=== PATIENT | female | born 1930 | race Caucasian/White ===

== ENCOUNTER → 2017-01-25 | Outpatient (CLI) | payer MEDICARE, OTHER ==
[2016-05-11 18:15] VITALS: BP 89/36
[~2017-01-25] MED LIST: ALBU0.63 IH; AMLO10TA2 PO; AMLO1TAB97 PO; ASPI-253 PO; ATOR40TA PO; AZIT250T6 PO; BENZ100C PO; BUDE10.2 IH; CARV12.5 PO; CARV6.25 PO; CETI10TA22 PO; CYCL-331 PO; ESOM40CA PO; FURO-69 PO; GUAI600T47 PO; ISOS30TA PO; MONT10TA6 PO; NITR12SP SL; OSEL75CA PO; PANT40TA3 PO; POTA20TA4 PO; POTA20TA84 PO; SUCR1TAB35 PO; TRAM50TA PO; VALS160T3 PO; WARF4TAB68 PO; WARF4TAB7 PO; WARF5TAB7 PO
--- NOTE | 2017-01-25 15:47 | RAD ---
Clinical Indication: Left lower extremity edema Technique: Study is dated January 25, 2017. Grayscale, color flow and spectral waveform analysis was performed of the left lower extremity with and without compression. Findings: There is normal compressibility of all visualized vein segments. No evidence of DVT is present on grayscale or color images. There is normal phasicity of waveform. There is normal augmentation. Probable popliteal cyst is noted. Impression: No evidence of deep vein thrombosis.
== END | disposition home or self-care (01) ==
LOC: US 14:48
PROVIDERS: ATTEND Nurse Practitioner
DX: R60.0 Localized edema (principal)
CPT/HCPCS: 93971

== ENCOUNTER → 2017-01-27 | Outpatient (CLI) | payer MEDICARE, OTHER ==
[2016-05-11 18:15] VITALS: BP 89/36
--- NOTE | 2017-01-27 16:04 | RAD ---
EXAM: Left knee, 3 views HISTORY: Left knee pain. COMPARISON: None. FINDINGS: Osteopenia is moderate to severe. No fractures are identified. Joint spaces are maintained for patient age. 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 There are small osteophytes medially and laterally. Alignment is normal. There is no joint effusion. IMPRESSION: 1. Minimal medial and lateral compartmental osteoarthritis. No fracture.
== END | disposition home or self-care (01) ==
LOC: DXRADRC 15:16
PROVIDERS: ATTEND Physician Assistant
DX: M17.12 Unilateral primary osteoarthritis, left knee (principal); M11.262 Other chondrocalcinosis, left knee; M85.862 Other specified disorders of bone density and structure, left lower leg; M25.762 Osteophyte, left knee
CPT/HCPCS: 73562

== ENCOUNTER → 2017-02-17 | Outpatient (CLI) | payer MEDICARE, OTHER ==
[2016-05-11 18:15] VITALS: BP 89/36
[2017-02-17 12:07] LABS: CALCIUM 9.6 mg/dL (8.5-10.1); CREATININE 1.2 mg/dL (0.6-1.0); GFR 42.8; POTASSIUM 3.8 mmol/L (3.5-5.1)
[2017-02-17 12:08] LABS: MAGNESIUM 1.6 mg/dL (1.8-2.4)
== END | disposition home or self-care (01) ==
LOC: LAB 11:26
PROVIDERS: ATTEND Nurse Practitioner
DX: E87.5 Hyperkalemia (principal); R00.2 Palpitations; I10 Essential (primary) hypertension; Z87.891 Personal history of nicotine dependence
CPT/HCPCS: 36415; 80048; 83735; 84443

== ENCOUNTER 2017-03-26 14:51 | Emergency (ER) | payer MEDICARE, OTHER ==
[~2017-03-26] VITALS: Ht 142.2 cm; Wt 54.0 kg
[2017-03-26] MEDS ORDERED: ASPIRIN 81 MG TAB.CHEW PO ONE (15:30)
--- NOTE | 2017-03-26 15:42 | RAD ---
Portable chest, 03/26/2017: History: Chest pain, lower extremity swelling Comparison is made to a study from 12/23/2014. A left-sided transvenous pacemaker is in place with 2 leads extending into the right ventricle. The heart is mildly enlarged. The pulmonary vascularity is normal. No pulmonary infiltrates are seen. There is no evidence of pleural fluid. IMPRESSION: No acute cardiopulmonary abnormality is detected.
--- NOTE | 2017-03-26 15:47 | EKG ---
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
[2017-03-26 15:50] LABS: BASO % 0 % (0-3); EOS # 0.1 x10^3/uL (0.0-0.7); EOS % 2 % (0-3); HEMATOCRIT 34.3 % (36.0-47.0); HEMOGLOBIN 11.6 g/dL (12.0-15.5); LYMPH # 1.1 x10^3/uL (1.0-4.8); LYMPH % 14 % (24-48); MEAN CORPUSCULAR HEMOGLOBIN 32 pg (25-35); MEAN CORPUSCULAR HGB CONC 34 g/dL (31-37); MEAN CORPUSCULAR VOLUME 93 fL (79-100); MONO # 0.5 x10^3/uL (0.0-1.1); MONO % 7 % (0-9); NEUT # 5.9 x10^3uL (1.8-7.7); NEUT % 77 % (31-73); PLATELET COUNT 174 x10^3/uL (140-400); RED BLOOD COUNT 3.67 x10^6/uL (3.50-5.40); RED CELL DISTRIBUTION WIDTH 13.5 % (11.5-14.5); WHITE BLOOD COUNT 7.6 x10^3/uL (4.0-11.0)
--- NOTE | 2017-03-26 16:05 | RAD ---
Left lower extremity venous ultrasound, 03/26/2017 : History: Lower extremity pain and edema Duplex evaluation including grayscale, color flow and spectral Doppler analysis was performed. The femoral and popliteal veins show no filling defects to suggest DVT. The visualized calf veins are unremarkable. IMPRESSION: There is no sonographic evidence of deep vein thrombosis in the left lower extremity
[2017-03-26 16:09] LABS: ALBUMIN 3.8 g/dL (3.4-5.0); ALBUMIN/GLOBULIN RATIO 1.1 (1.0-1.7); CALCIUM 9.4 mg/dL (8.5-10.1); CREATININE 1.1 mg/dL (0.6-1.0); GFR 47.2; MAGNESIUM 1.8 mg/dL (1.8-2.4); POTASSIUM 3.9 mmol/L (3.5-5.1); TOTAL BILIRUBIN 0.5 mg/dL (0.2-1.0); TOTAL PROTEIN 7.4 g/dL (6.4-8.2)
[2017-03-26 17:10] VITALS: BP 156/98
--- NOTE | 2017-03-26 17:52 | PHYS DOC ---
Past History Past Medical History: CAD, High Cholesterol, Hypertension, Renal Disease, Other Past Surgical History: Appendectomy, Cholecystectomy, Hysterectomy, Pacemaker, Tonsillectomy, Other Smoking: Non-smoker, Quit Greater Than 1 Year Alcohol Use: None Drug Use: None Adult General Chief Complaint Chief Complaint: left leg swerlling , chestpain HPI HPI 87-year-old female patient states she had a fall 3 months ago and had left leg swelling with unremarkable x-ray and DVT evaluation. Patient states the swelling does not go away and complaining of increasing swelling today. Patient also complaining of intermittent episodes of exertional shortness of breath and chest pain for the last few days that he states is not a problem that she is here today. Patient denies chest pain at this time. Review of Systems Review of Systems Constitutional: Denies fever or chills [] Eyes: Denies change in visual acuity, redness, or eye pain [] HENT: Denies nasal congestion or sore throat [] Respiratory: Denies cough or shortness of breath [] Cardiovascular: No additional information not addressed in HPI [] GI: Denies abdominal pain, nausea, vomiting, bloody stools or diarrhea [] : Denies dysuria or hematuria [] Musculoskeletal: Reports joint pain [] Integument: Denies rash or skin lesions, reports edema [] Neurologic: Denies headache, focal weakness or sensory changes [] Endocrine: Denies polyuria or polydipsia [] All other systems were reviewed and found to be within normal limits, except as documented in this note. Current Medications Current Medications Current Medications Medications (Trade) Dose Ordered Sig/Rosa Elena Start Time Stop Time Status Last Admin Dose Admin Aspirin (Children'S Aspirin) 324 mg 1X ONCE 03/26/17 15:30 03/26/17 15:32 DC 03/26/17 15:38 324 MG Allergies Allergies Allergies Coded Allergies Type Severity Reaction Last Updated Verified celecoxib Allergy Intermediate 04/28/14 Yes Physical Exam Physical Exam Constitutional: Well developed, well nourished, no acute distress, non-toxic appearance,anxious. [] HENT: Normocephalic, atraumatic, bilateral external ears normal, oropharynx moist, no oral exudates, nose normal. [] Eyes: PERRLA, EOMI, conjunctiva normal, no discharge. [] Neck: Normal range of motion, no tenderness, supple, no stridor. [] Cardiovascular:Heart rate regular rhythm, no murmur [] Lungs & Thorax: Bilateral breath sounds clear to auscultation [] Abdomen: Bowel sounds normal, soft, no tenderness, no masses, no pulsatile masses. [] Skin: Warm, dry, no erythema, no rash. [] Back: No tenderness, no CVA tenderness. [] Extremities : Bilateral lower extremity edema, 3+ edema in the left site without tenderness, no neurovascular deficit neuro exam, alert and oriented x3 ] Psychologic: Affect normal, judgement normal, anxious Current Patient Data Lab Results Laboratory Tests Test 03/26/17 15:32 White Blood Count 7.6 x10^3/uL (4.0-11.0) Red Blood Count 3.67 x10^6/uL (3.50-5.40) Hemoglobin 11.6 g/dL (12.0-15.5) L Hematocrit 34.3 % (36.0-47.0) L Mean Corpuscular Volume 93 fL (79-100) Mean Corpuscular Hemoglobin 32 pg (25-35) Mean Corpuscular Hemoglobin Concent 34 g/dL (31-37) Red Cell Distribution Width 13.5 % (11.5-14.5) Platelet Count 174 x10^3/uL (140-400) Neutrophils (%) (Auto) 77 % (31-73) H Lymphocytes (%) (Auto) 14 % (24-48) L Monocytes (%) (Auto) 7 % (0-9) Eosinophils (%) (Auto) 2 % (0-3) Basophils (%) (Auto) 0 % (0-3) Neutrophils # (Auto) 5.9 x10^3uL (1.8-7.7) Lymphocytes # (Auto) 1.1 x10^3/uL (1.0-4.8) Monocytes # (Auto) 0.5 x10^3/uL (0.0-1.1) Eosinophils # (Auto) 0.1 x10^3/uL (0.0-0.7) Basophils # (Auto) 0.0 x10^3/uL (0.0-0.2) Prothrombin Time 12.3 SEC (9.4-11.4) H Prothrombin Time INR 1.2 (0.9-1.1) H D-Dimer (Meka) 0.56 mg/L (0.00-0.50) H Sodium Level 144 mmol/L (136-145) Potassium Level 3.9 mmol/L (3.5-5.1) Chloride Level 105 mmol/L (98-107) Carbon Dioxide Level 31 mmol/L (21-32) Anion Gap 8 (6-14) Blood Urea Nitrogen 17 mg/dL (7-20) Creatinine 1.1 mg/dL (0.6-1.0) H Estimated GFR (Cockcroft-Gault) 47.2 BUN/Creatinine Ratio 15 (6-20) Glucose Level 116 mg/dL (70-99) H Calcium Level 9.4 mg/dL (8.5-10.1) Magnesium Level 1.8 mg/dL (1.8-2.4) Total Bilirubin 0.5 mg/dL (0.2-1.0) Aspartate Amino Transferase (AST) 20 U/L (15-37) Alanine Aminotransferase (ALT) 23 U/L (14-59) Alkaline Phosphatase 65 U/L (46-116) Creatine Kinase 67 U/L (26-192) Creatine Kinase MB (Mass) 1.2 ng/mL (0.0-3.6) Creatine Kinase MB Relative Index 1.8 % (0-4) Troponin I Quantitative < 0.017 ng/mL (0-0.055) [id number]-[id number]-Type Natriuretic Peptide 1945 pg/mL (0-449) H Total Protein 7.4 g/dL (6.4-8.2) Albumin 3.8 g/dL (3.4-5.0) Albumin/Globulin Ratio 1.1 (1.0-1.7) EKG EKG [EKG at 1506 showed normal sinus rhythm at 60, prolonged NC interval, left axis deviation, nonspecific inter-ventricular block] Radiology/Procedures Radiology/Procedures [] Course & Med Decision Making Course & Med Decision Making Pertinent Labs and Imaging studies reviewed. (See chart for details) Evaluation of patient in ER showed 87-year-old female patient with complaining of chronic lower extremity edema for more than 3 months more in left side. She also complaining of intermittent episodes of chest pain for one week. Patient had unremarkable ultrasound of left lower extremity. Patient had elevation of BNP and used to take Lasix but not taking Lasix currently. Patient instructed to continue home Lasix and follow up with her primary care physician for chronic lower extremity edema and evaluation of episode of chest pain. [] Dragon Disclaimer Dragon Disclaimer This electronic medical record was generated, in whole or in part, using a voice recognition dictation system. Departure Departure: Impression: Primary Impression: Pedal edema Additional Impression: CHF (congestive heart failure) Disposition: HOME, SELF-CARE (At 1750) Condition: STABLE Referrals: RAJ BENITEZ (PCP) Patient Instructions: Edema, Heart Failure Additional Instructions: Follow-up with your primary care physician in 2 or 3 days for more heart evaluation Problem Qualifiers TATUM BARON MD Mar 26, 2017 17:52
== END 2017-03-26 18:10 | disposition home or self-care (01) ==
LOC: ER 14:51
DX: R60.9 Edema, unspecified (principal); I11.0 Hypertensive heart disease with heart failure; I50.9 Heart failure, unspecified; I25.10 Atherosclerotic heart disease of native coronary artery without angina pectoris; E78.00 Pure hypercholesterolemia, unspecified; N28.9 Disorder of kidney and ureter, unspecified; Z87.891 Personal history of nicotine dependence; Z88.1 Allergy status to other antibiotic agents
CPT/HCPCS: 36415; 71010; 80053; 82553; 83735; 83880; 84484; 85025; 85379; 85610; 93005; 93971; 99285-25

== ENCOUNTER 2017-06-05 13:50 | Emergency (ER) | payer MEDICARE, OTHER ==
[~2017-06-05] VITALS: Ht 137.2 cm; Wt 57.2 kg
[~2017-06-05 13:50] MED LIST changes: +WARF-31 PO; -WARF5TAB7 PO
[2017-06-05 14:18] VITALS: BP 179/82
[2017-06-05 15:34] LABS: BASO % 0 % (0-3); EOS # 0.1 x10^3/uL (0.0-0.7); EOS % 2 % (0-3); HEMATOCRIT 36.5 % (36.0-47.0); HEMOGLOBIN 12.1 g/dL (12.0-15.5); LYMPH % 11 % (24-48); MEAN CORPUSCULAR HEMOGLOBIN 31 pg (25-35); MEAN CORPUSCULAR HGB CONC 33 g/dL (31-37); MEAN CORPUSCULAR VOLUME 92 fL (79-100); MONO # 0.5 x10^3/uL (0.0-1.1); MONO % 6 % (0-9); NEUT # 7.5 x10^3uL (1.8-7.7); NEUT % 81 % (31-73); PLATELET COUNT 182 x10^3/uL (140-400); RED BLOOD COUNT 3.97 x10^6/uL (3.50-5.40); RED CELL DISTRIBUTION WIDTH 13.7 % (11.5-14.5); WHITE BLOOD COUNT 9.2 x10^3/uL (4.0-11.0)
[2017-06-05 15:42] LABS: ALBUMIN 3.5 g/dL (3.4-5.0); ALBUMIN/GLOBULIN RATIO 0.9 (1.0-1.7); CALCIUM 9.1 mg/dL (8.5-10.1); CREATININE 1.1 mg/dL (0.6-1.0); GFR 47.2; POTASSIUM 3.8 mmol/L (3.5-5.1); TOTAL BILIRUBIN 0.6 mg/dL (0.2-1.0); TOTAL PROTEIN 7.3 g/dL (6.4-8.2)
--- NOTE | 2017-06-05 15:55 | RAD ---
Left lower extremity venous duplex Doppler ultrasound HISTORY: Left leg swelling and pain TECHNIQUE: Grayscale and duplex Doppler sonography were utilized. FINDINGS: No evidence of deep venous thrombosis by grayscale sonography with compressibility, patent color Doppler blood flow, respiratory variability and augmentation of blood flow of the left common femoral vein, profunda femoral vein, superficial femoral vein and popliteal vein. No thrombosis with patent color Doppler blood flow of the posterior tibial and peroneal veins in the calf. A venous valve is noted at the proximal superficial femoral vein by grayscale imaging. The greater saphenous vein is absent surgically. IMPRESSION: Negative left leg for deep venous thrombosis. Electronically signed by: Lion Regalado MD (06/05/2017 3:52 PM) [facility]
--- NOTE | 2017-06-05 16:14 | PHYS DOC ---
Past History Past Medical History: DVT Additional Past Medical Histor: history of DVT Past Surgical History: Pacemaker Smoking: Non-smoker, Quit Greater Than 1 Year Alcohol Use: None Drug Use: None Adult General Chief Complaint Chief Complaint: LOWER EXTREMITY SWELLING HPI HPI 87-year-old female patient states she had history of DVT right leg and currently taking Coumadin. Patient complaining of left lower extremity edema. Last 1 week with mild pain during movement of her leg and is concern for possible blood clot to the leg. Patient denies shortness of breath, chest pain, generalized weakness, recent immobilization, ecchymoses and easy bruising, bleeding problem. Review of Systems Review of Systems Constitutional: Denies fever or chills [] Eyes: Denies change in visual acuity, redness, or eye pain [] HENT: Denies nasal congestion or sore throat [] Respiratory: Denies cough or shortness of breath [] Cardiovascular: No additional information not addressed in HPI [] GI: Denies abdominal pain, nausea, vomiting, bloody stools or diarrhea [] : Denies dysuria or hematuria [] Musculoskeletal: Denies back pain, reports extremity edema and pain Integument: Denies rash or skin lesions [] Neurologic: Denies headache, focal weakness or sensory changes [] Endocrine: Denies polyuria or polydipsia [] All other systems were reviewed and found to be within normal limits, except as documented in this note. Allergies Allergies Allergies Coded Allergies Type Severity Reaction Last Updated Verified celecoxib Allergy Intermediate 04/28/14 Yes Physical Exam Physical Exam Constitutional: Well developed, well nourished, no acute distress, non-toxic appearance. [] HENT: Normocephalic, atraumatic, bilateral external ears normal, oropharynx moist, no oral exudates, nose normal. [] Eyes: PERRLA, EOMI, conjunctiva normal, no discharge. [] Neck: Normal range of motion, no tenderness, supple, no stridor. [] Cardiovascular:Heart rate regular rhythm, no murmur [] Lungs & Thorax: Bilateral breath sounds clear to auscultation [] Abdomen: Bowel sounds normal, soft, no tenderness, no masses, no pulsatile masses. [] Skin: Warm, dry, no erythema, no rash. [] Back: No tenderness, no CVA tenderness. [] Extremities: Left lower extremity with marked edema without tenderness or sign of infection or neurovascular deficit Neurologic: Alert and oriented X 3, normal motor function, normal sensory function, no focal deficits noted. [] Psychologic: Affect normal, judgement normal, mood normal. [] Current Patient Data Vital Signs Vital Signs Date Time Temp Pulse Resp B/P (MAP) Pulse Ox O2 Delivery O2 Flow Rate FiO2 06/05/17 14:18 98.4 67 16 95 Room Air Lab Results Laboratory Tests Test 06/05/17 15:00 White Blood Count 9.2 x10^3/uL (4.0-11.0) Red Blood Count 3.97 x10^6/uL (3.50-5.40) Hemoglobin 12.1 g/dL (12.0-15.5) Hematocrit 36.5 % (36.0-47.0) Mean Corpuscular Volume 92 fL (79-100) Mean Corpuscular Hemoglobin 31 pg (25-35) Mean Corpuscular Hemoglobin Concent 33 g/dL (31-37) Red Cell Distribution Width 13.7 % (11.5-14.5) Platelet Count 182 x10^3/uL (140-400) Neutrophils (%) (Auto) 81 % (31-73) H Lymphocytes (%) (Auto) 11 % (24-48) L Monocytes (%) (Auto) 6 % (0-9) Eosinophils (%) (Auto) 2 % (0-3) Basophils (%) (Auto) 0 % (0-3) Neutrophils # (Auto) 7.5 x10^3uL (1.8-7.7) Lymphocytes # (Auto) 1.0 x10^3/uL (1.0-4.8) Monocytes # (Auto) 0.5 x10^3/uL (0.0-1.1) Eosinophils # (Auto) 0.1 x10^3/uL (0.0-0.7) Basophils # (Auto) 0.0 x10^3/uL (0.0-0.2) Prothrombin Time 46.4 SEC (9.4-11.4) H Prothrombin Time INR 4.6 (0.9-1.1) *H Sodium Level 141 mmol/L (136-145) Potassium Level 3.8 mmol/L (3.5-5.1) Chloride Level 102 mmol/L (98-107) Carbon Dioxide Level 33 mmol/L (21-32) H Anion Gap 6 (6-14) Blood Urea Nitrogen 13 mg/dL (7-20) Creatinine 1.1 mg/dL (0.6-1.0) H Estimated GFR (Cockcroft-Gault) 47.2 BUN/Creatinine Ratio 12 (6-20) Glucose Level 130 mg/dL (70-99) H Calcium Level 9.1 mg/dL (8.5-10.1) Total Bilirubin 0.6 mg/dL (0.2-1.0) Aspartate Amino Transferase (AST) 21 U/L (15-37) Alanine Aminotransferase (ALT) 21 U/L (14-59) Alkaline Phosphatase 71 U/L (46-116) Total Protein 7.3 g/dL (6.4-8.2) Albumin 3.5 g/dL (3.4-5.0) Albumin/Globulin Ratio 0.9 (1.0-1.7) L EKG EKG [] Radiology/Procedures Radiology/Procedures [] Course & Med Decision Making Course & Med Decision Making Pertinent Labs and Imaging studies reviewed. (See chart for details) []Doppler study of left lower extremity was negative for DVT. Patient had INR of 4.6 and instructed to hold her Coumadin for the next 2 days and follow with her primary care physician in 2 days for recheck level of PT/INR. Regarding her lower extremity edema patient instructed to follow-up with her primary care physician. Dragon Disclaimer Dragon Disclaimer This electronic medical record was generated, in whole or in part, using a voice recognition dictation system. Departure Departure: Impression: Primary Impression: Edema of left lower extremity Additional Impression: Coumadin toxicity Disposition: HOME, SELF-CARE (at 1613) Condition: STABLE Referrals: RAJ BENITEZ (PCP) Patient Instructions: Edema, Warfarin Coagulopathy, Warfarin, Questions and Answers Additional Instructions: Do not take Coumadin today and tomorrow and follow up with your primary care physician on Wednesday to recheck the level of Coumadin Problem Qualifiers TATUM BARON MD Jun 05, 2017 16:14
== END 2017-06-05 16:28 | disposition home or self-care (01) ==
LOC: ER 13:50
DX: R60.0 Localized edema (principal); T45.511A Poisoning by anticoagulants, accidental (unintentional), initial encounter; Z86.718 Personal history of other venous thrombosis and embolism; Z95.0 Presence of cardiac pacemaker; Z87.891 Personal history of nicotine dependence; Z88.8 Allergy status to other drugs, medicaments and biological substances; Y92.89 Other specified places as the place of occurrence of the external cause
CPT/HCPCS: 36415; 80053; 85025; 85610; 93971; 99285-25

== ENCOUNTER 2017-08-10 11:38 | Emergency (ER) | payer MEDICARE, OTHER ==
[~2017-08-10] VITALS: Ht 144.8 cm; Wt 55.7 kg
[~2017-08-10 11:38] MED LIST changes: +WARF4TAB64 PO; -WARF4TAB7 PO
[2017-08-10] MEDS ORDERED: DIPH,PERTUSS(ACELL),TET PED/PF 0.5 ML VIAL VAX IM ONE (12:00)
[2017-08-10] MEDS ORDERED: HYDROcodone/APAP 5/325MG 1 TAB TABLET PO ONE (12:00)
[2017-08-10] MEDS ORDERED: RABIES VIRUS VACC PF 2.5 UNIT / 1 ML VIAL. VAX IM ONE (12:15)
[2017-08-10] MEDS ORDERED: cefTRIAXone IM 1 GM VIAL IM ONE (12:30)
[2017-08-10] MEDS ORDERED: DIPHTH,PERTUSS(ACELL),TET TOX 0.5 ML DISP.SYRIN. VAX IM ONE (12:30)
[2017-08-10] MEDS ORDERED: LIDOCAINE 1% Multi-Dose 20 ML VIAL. IJ ONE (12:30)
[2017-08-10] MEDS ORDERED: RABIES IMMUNE GLOBULIN PF 300 UNIT/2 ML VIAL. VAX IM ONE (12:30)
--- NOTE | 2017-08-10 13:36 | RAD ---
3 views right and left hand 08/10/2017 CLINICAL INDICATION: Laceration to both hands. Tach by cat. COMPARISON: None. FINDINGS: Right hand: Diffuse bony demineralization. There is diffuse soft tissue swelling and multiple foci of soft tissue gas most prominent at the dorsal wrist and hand seen on the lateral view. No acute fracture or traumatic malalignment. There is moderate radiocarpal arthrosis. Scattered mild DIP osteoarthritis. There is a V-shaped proximal carpal row with increased inclination of the distal ulna and radius. There is a tiny subchondral cyst at the radial styloid. Left hand: There is diffuse bony demineralization. There is soft tissue swelling and probable foci of soft tissue gas at the dorsal aspect of the hand seen on the lateral view. No acute fracture or traumatic malalignment. There is a V-shaped orientation of the proximal carpal row with increase inclination of the distal radius and ulna. Scattered mild DIP osteoarthritis. IMPRESSION: Right hand: 1. Wrist and dorsal predominant soft tissue swelling and gas concerning for cellulitis, and gas forming organism cannot be excluded. Soft tissue abscess also cannot be excluded. 2. No radiopaque foreign body. 3. Madelung's deformity of the wrist. Left hand: 1. Dorsal hand soft tissue swelling and gas concerning for cellulitis, gas forming organism and an abscess cannot be excluded. 2. No radiopaque foreign body identified. 3. Madelung's deformity of the wrist. Electronically signed by: Aki Arizmendi MD (08/10/2017 1:33 PM) [id number]
[2017-08-10] MEDS ORDERED: ACET-704 PO (13:47)
[2017-08-10] MEDS ORDERED: AMOX1TAB61 PO (13:47)
--- NOTE | 2017-08-10 13:47 | PHYS DOC ---
Past History Past Medical History: DVT Additional Past Medical Histor: history of DVT Past Surgical History: Pacemaker Smoking: Non-smoker, Quit Greater Than 1 Year Alcohol Use: None Drug Use: None Adult General Chief Complaint Chief Complaint: Cat bite HPI HPI 87-year-old female patient brought in by EMS because of cat bites. Patient states a large cat was in her yard and she tried to splash water on the cat and he attacked her and caused multiple bites and laceration to her head and upper and lower extremities. Patient denies loss of consciousness or head injury, nausea and vomiting, focal neuro deficit. Patient rated her pain 9/10. Patient is not up-to-date with her tetanus immunization. Police department was informed after the accident and the cat is not available at this time. Review of Systems Review of Systems Constitutional: Denies fever or chills [] Eyes: Denies change in visual acuity, redness, or eye pain [] HENT: Denies nasal congestion or sore throat [] Respiratory: Denies cough or shortness of breath [] Cardiovascular: No additional information not addressed in HPI [] GI: Denies abdominal pain, nausea, vomiting, bloody stools or diarrhea [] : Denies dysuria or hematuria [] Musculoskeletal: Denies back pain, reports joint pain [] Integument: Denies rash or skin lesions [] Neurologic: Denies headache, focal weakness or sensory changes [] Endocrine: Denies polyuria or polydipsia [] All other systems were reviewed and found to be within normal limits, except as documented in this note. Current Medications Current Medications Current Medications Medications (Trade) Dose Ordered Sig/Rosa Elena Start Time Stop Time Status Last Admin Dose Admin Acetaminophen/ Hydrocodone Bitart (Lortab 5/325) 1 tab 1X ONCE 08/10/17 12:00 08/10/17 12:01 DC 08/10/17 12:09 1 TAB Ceftriaxone Sodium (Rocephin Im) 1 gm 1X ONCE 08/10/17 12:30 08/10/17 12:31 DC 08/10/17 12:31 1 GM Diphtheria/ Tetanus/Acell Pertussis (Boostrix) 0.5 ml ONCE ONCE 08/10/17 12:30 08/10/17 12:31 DC Diphtheria/ Tetanus/Acell Pertussis (Infanrix Dtap Vial) 0.5 ml ONCE ONCE 08/10/17 12:00 08/10/17 12:14 DC Lidocaine HCl 20 ml 1X ONCE 08/10/17 12:30 08/10/17 12:31 DC Rabies Immune Globulin (Imogam Rabies) 7.4 ml ONCE ONCE 08/10/17 12:30 08/10/17 12:31 DC Rabies Vaccine Human Diploid Cell (Imovax Rabies 2.5 Unit / ml) 1 ml ONCE ONCE 08/10/17 12:15 08/10/17 12:16 DC Allergies Allergies Allergies Coded Allergies Type Severity Reaction Last Updated Verified celecoxib Allergy Intermediate 04/28/14 Yes Physical Exam Physical Exam Constitutional: Well developed, well nourished, mild distress, non-toxic appearance. [] HENT: Normocephalic, 3 linear laceration in the occipital area 2 cm, 1 cm and 1 cm with mild bleeding, bilateral external ears normal, oropharynx moist, no oral exudates, nose normal. [] Eyes: PERRLA, EOMI, conjunctiva normal, no discharge. [] Neck: Normal range of motion, no tenderness, supple, no stridor. [] Cardiovascular:Heart rate regular rhythm, no murmur [] Lungs & Thorax: Bilateral breath sounds clear to auscultation [] Abdomen: Bowel sounds normal, soft, no tenderness, no masses, no pulsatile masses. [] Skin: Warm, dry, no erythema, no rash. [] Back: No tenderness, no CVA tenderness. [] Extremities: Multiple laceration in upper and lower extremities, 3 cm laceration of right hand, 5 cm laceration of right wrist, multiple puncture wounds up to 1 cm laceration of right upper extremity, 2 cm laceration of left hand and multiple puncture wounds up to 1 cm laceration of left upper extremity , right leg with abrasion and puncture wound without large laceration Neurologic: Alert and oriented X 3, normal motor function, normal sensory function, no focal deficits noted. [] Psychologic: Affect normal, judgement normal, mood normal. [] EKG EKG [] Radiology/Procedures Radiology/Procedures [ IMAGING REPORT Signed PATIENT: SUKHWINDER NAVAS ACCOUNT: [id number] : 1930 LOCATION: ER AGE: 87 SEX: F EXAM STATUS: REG ER ORD. PHYSICIAN: TATUM BARON MD REASON: injury PROCEDURE: HAND BILAT 3V 3 views right and left hand 08/10/2017 CLINICAL INDICATION: Laceration to both hands. Tach by cat. COMPARISON: None. FINDINGS: Right hand: Diffuse bony demineralization. There is diffuse soft tissue swelling and multiple foci of soft tissue gas most prominent at the dorsal wrist and hand seen on the lateral view. No acute fracture or traumatic malalignment. There is moderate radiocarpal arthrosis. Scattered mild DIP osteoarthritis. There is a V-shaped proximal carpal row with increased inclination of the distal ulna and radius. There is a tiny subchondral cyst at the radial styloid. Left hand: There is diffuse bony demineralization. There is soft tissue swelling and probable foci of soft tissue gas at the dorsal aspect of the hand seen on the lateral view. No acute fracture or traumatic malalignment. There is a V-shaped orientation of the proximal carpal row with increase inclination of the distal radius and ulna. Scattered mild DIP osteoarthritis. IMPRESSION: Right hand: 1. Wrist and dorsal predominant soft tissue swelling and gas concerning for cellulitis, and gas forming organism cannot be excluded. Soft tissue abscess also cannot be excluded. 2. No radiopaque foreign body. 3. Madelung's deformity of the wrist. Left hand: 1. Dorsal hand soft tissue swelling and gas concerning for cellulitis, gas forming organism and an abscess cannot be excluded. 2. No radiopaque foreign body identified. 3. Madelung's deformity of the wrist. Electronically signed by: Roderick Arizmendi MD (08/10/2017 1:33 PM) [id number] DICTATED AND SIGNED BY: RODERICK ARIZMENDI MD DATE: 08/10/17 1322 ] Course & Med Decision Making Course & Med Decision Making Pertinent Imaging studies reviewed. (See chart for details) Evaluation of patient in ER showed 87-year-old female patient who was attacked by CT dye and had multiple laceration. Several large laceration was approximated with couple of stitches. Patient had [place], tetanus, rabies immunoglobulin and vaccine and Rocephin in ER. X ray of bilateral hand did not show fracture. Plan to discharge patient home with instruction to rabies vaccination at days 3 and 7 and 14 and follow with primary care physician for evaluation of her wounds for possible infection. Dragon Disclaimer Dragon Disclaimer This electronic medical record was generated, in whole or in part, using a voice recognition dictation system. Laceration Repair Lac Repair Indication: [Multiple extremity laceration, scalp laceration] Procedure: The patient was placed in the appropriate position and anesthesia around the [bilateral hand laceration and scalp laceration with 1% lidocaine. The area was then [cleaned with 1 L of normal saline. ]. [5 cm laceration of right wrist repaired with 2 stitches of 4-0, 2 cm laceration of right hand repaired with one stitches of 4-0. 2 cm laceration of left hand repaired with one stitches of 4-0 nylon, 2 cm laceration of occipital scalp was repaired with one stitch of 4-0 nylon [ADDITIONAL LACS] The wound area was then dressed with topical antibiotic ointment and nonadhesive dressing. Total repaired wound length: [5 , 3, 2, 2 cm ]. Other Items: [OTHER ITEMS] The patient tolerated the procedure [well]. Complications: [none]. Critical Care Time Critical care time was [60] minutes exclusive of procedures. Departure Departure: Impression: Primary Impression: Cat bite Additional Impressions: Laceration of right hand Laceration of left hand Scalp laceration Puncture wound Disposition: HOME, SELF-CARE (At 1344) Condition: IMPROVED Referrals: RAJ BENITEZ (PCP) Scripts Acetaminophen With Codeine (TYLENOL WITH CODEINE #3 TABLET) 1 Each Tablet 1 TAB PO Q6HRS, #15 TAB Prov: TATUM BARON MD 08/10/17 Amoxicillin/Potassium Clav (AUGMENTIN 875-125 TABLET) 1 Each Tablet 1 TAB PO BID, #14 TAB Prov: TATUM BARON MD 08/10/17 Problem Qualifiers TATUM BARON MD August 10, 2017 13:47
[2017-08-10 14:50] VITALS: BP 150/60
== END 2017-08-10 15:55 | disposition home or self-care (01) ==
LOC: ER 11:38
DX: S01.01XA Laceration without foreign body of scalp, initial encounter (principal); S61.412A Laceration without foreign body of left hand, initial encounter; S61.411A Laceration without foreign body of right hand, initial encounter; S61.432A Puncture wound without foreign body of left hand, initial encounter; S81.831A Puncture wound without foreign body, right lower leg, initial encounter; Z23 Encounter for immunization; Z86.718 Personal history of other venous thrombosis and embolism; Z95.0 Presence of cardiac pacemaker; Z87.891 Personal history of nicotine dependence; Z88.1 Allergy status to other antibiotic agents; W55.01XA Bitten by cat, initial encounter; Y93.89 Activity, other specified; Y99.8 Other external cause status; Y92.096 Garden or yard of other non-institutional residence as the place of occurrence of the external cause
CPT/HCPCS: 12004; 73130; 90376; 90471; 90472; 90675; 90715; 96372; 99291; J0696; 99284-25

== ENCOUNTER 2017-08-18 08:41 | Emergency (ER) | payer MEDICARE, OTHER ==
[~2017-08-18] VITALS: Ht 144.8 cm; Wt 55.7 kg
[2017-08-18 08:41] VITALS: BP 122/56
[~2017-08-18 08:41] MED LIST changes: +ACET-704 PO; +AMOX1TAB61 PO
--- NOTE | 2017-08-18 09:02 | PHYS DOC ---
Past History Past Medical History: DVT, Hypertension, Other Additional Past Medical Histor: history of DVT Past Surgical History: Pacemaker Smoking: Non-smoker, Quit Greater Than 1 Year Alcohol Use: None Drug Use: None Adult General Chief Complaint Chief Complaint: SUTURE/STAPLE REMOVAL HPI HPI 87-year-old female patient had a cat bite on August first and presented to ER for suture removal. Patient states her wound good and denies fever and chills and discharge from the wound or unusual pain. Patient had a scheduled rabies vaccination that according to EMR had rabies vaccination on day 1 in emergency room and day 7 as outpatient. Review of Systems Review of Systems Constitutional: Denies fever or chills [] Eyes: Denies change in visual acuity, redness, or eye pain [] HENT: Denies nasal congestion or sore throat [] Respiratory: Denies cough or shortness of breath [] Cardiovascular: No additional information not addressed in HPI [] GI: Denies abdominal pain, nausea, vomiting, bloody stools or diarrhea [] : Denies dysuria or hematuria [] Musculoskeletal: Denies back pain or joint pain [] Integument: Denies rash or skin lesions [] Neurologic: Denies headache, focal weakness or sensory changes [] Endocrine: Denies polyuria or polydipsia [] All other systems were reviewed and found to be within normal limits, except as documented in this note. Allergies Allergies Allergies Coded Allergies Type Severity Reaction Last Updated Verified celecoxib Allergy Intermediate 04/28/14 Yes Physical Exam Physical Exam Constitutional: Well developed, well nourished, no acute distress, non-toxic appearance. [] HENT: Normocephalic, atraumatic, well healed scalp wounds Eyes: PERRLA, EOMI, conjunctiva normal, no discharge. [] Neck: Normal range of motion, no tenderness, supple, no stridor. [] Cardiovascular:Heart rate regular rhythm, no murmur [] Lungs & Thorax: Bilateral breath sounds clear to auscultation [] Skin: Warm, dry, no erythema, no rash, when he dove multiple wound in upper extremities [] Extremities: No tenderness, no cyanosis, no clubbing, ROM intact, no edema. [] Neurologic: Alert and oriented X 3, normal motor function, normal sensory function, no focal deficits noted. [] Psychologic: Affect normal, judgement normal, mood normal. [] EKG EKG [] Radiology/Procedures Radiology/Procedures [] Course & Med Decision Making Course & Med Decision Making 7 stitches of scalp and right and left hands in different wounds was removed with good healing misha of flexion. Patient had a scheduled rabies vaccination that according to EMR she had the first one in the emergency room and day 7 as outpatient and missed day 3 of rabies vaccination. Patient instructed to follow up with outpatient clinic and her primary care for making up of her rabies vaccination. Dragon Disclaimer Dragon Disclaimer This electronic medical record was generated, in whole or in part, using a voice recognition dictation system. Departure Departure: Impression: Primary Impression: Encounter for removal of sutures Additional Impression: Need for rabies vaccination Disposition: 01 HOME, SELF-CARE Condition: STABLE Referrals: RAJ BENITEZ (PCP) Patient Instructions: Suture Removal Additional Instructions: Follow-up with your primary care physician and outpatient clinic for scheduled rabies vaccine Keep the wound clean and dry Problem Qualifiers TATUM BARON MD August 18, 2017 09:02
[2017-08-18] MEDS ORDERED: METOPROLOL TARTRATE 5 MG/5 ML VIAL. IV ONE (09:30)
== END 2017-08-18 09:35 | disposition home or self-care (01) ==
LOC: ER 08:41
DX: S61.412D Laceration without foreign body of left hand, subsequent encounter (principal); S61.411D Laceration without foreign body of right hand, subsequent encounter; I10 Essential (primary) hypertension; Z86.718 Personal history of other venous thrombosis and embolism; Z95.0 Presence of cardiac pacemaker; Z87.891 Personal history of nicotine dependence; Z88.1 Allergy status to other antibiotic agents; X58.XXXD Exposure to other specified factors, subsequent encounter
CPT/HCPCS: 93005; 99281; 99283

== ENCOUNTER 2017-09-20 17:10 | Inpatient (IN) | payer MEDICARE, OTHER ==
[~2017-09-20] VITALS: Ht 144.8 cm; Wt 49.9 kg
--- NOTE | 2017-09-20 17:45 | EKG ---
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
--- NOTE | 2017-09-20 17:54 | ED.ADGEN ---
Past History Past Medical History: Arthritis, Asthma, DVT, Hypertension, [place], Other Additional Past Medical Histor: history of DVT Past Surgical History: Appendectomy, Hysterectomy, Pacemaker, Tonsillectomy Smoking: Non-smoker, Quit Greater Than 1 Year Alcohol Use: None Drug Use: None Adult General Chief Complaint Chief Complaint ".. I had.. some ... increase shortness .. in my breath..." HPI HPI Patient is a 87 year old female who presents with above hx and complaints of dyspnea. Patient dyspnea the markedly decreased the past 2 hours. Patient has history of prior episodes of CHF, hypertension, DVT, [place], asthma, and arthritis. Pt. patient denies any changes in meds. Patient denies any history of travel or specific ill contacts. Patient normally follows Dr. Cat. Review of Systems Review of Systems Constitutional: Denies fever or chills [] Eyes: Denies change in visual acuity, redness, or eye pain [] HENT: Denies nasal congestion or sore throat [] Respiratory: Complains of shortness of breath [] Cardiovascular: No additional information not addressed in HPI [] GI: Denies abdominal pain, nausea, vomiting, bloody stools or diarrhea [] : Denies dysuria or hematuria [] Musculoskeletal: Denies back pain or joint pain [] Integument: Denies rash or skin lesions [] Neurologic: Denies headache, focal weakness or sensory changes [] Endocrine: Denies polyuria or polydipsia [] All other systems were reviewed and found to be within normal limits, except as documented in this note. Family History Family History Noncontributory Current Medications Current Medications Current Medications Medications (Trade) Dose Ordered Sig/Rosa Elena Start Time Stop Time Status Last Admin Dose Admin Aspirin (Children'S Aspirin) 324 mg 1X ONCE 09/20/17 18:30 09/20/17 18:31 DC 09/20/17 18:40 324 MG Sodium Chloride 1,000 ml @ 100 mls/hr Q10H 09/20/17 18:30 09/21/17 04:29 DC 09/20/17 23:11 100 MLS/HR See nursing for home meds Allergies Allergies Allergies Coded Allergies Type Severity Reaction Last Updated Verified celecoxib Allergy Intermediate 04/28/14 Yes Physical Exam Physical Exam Constitutional: Moderately acute distress, ill in appearance. [] HENT: Normocephalic, atraumatic, bilateral external ears normal, oropharynx moist, no oral exudates, nose normal. [] Eyes: PERRLA, EOMI, conjunctiva normal, no discharge. [] Neck: Normal range of motion, no tenderness, supple, no stridor. [] Cardiovascular bradycardia: Pace- Heart rate regular rhythm, no murmur []PMI to the left Lungs & Thorax: Bilateral breath sounds equal at apex with scattered wheezes auscultation [. Increased crackles left lower base.]pacer left chest wall. Abdomen: Bowel sounds normal, soft, no tenderness, no masses, no pulsatile masses. [] Skin: Warm, dry, no erythema, no rash. [] Back: No tenderness, no CVA tenderness. [] Kyphosis Extremities: No tenderness, no cyanosis, no clubbing, ROM intact, ankle edema. [ ] No cording appreciated Neurologic: Alert and oriented X 3, normal motor function, normal sensory function, no focal deficits noted. [] Psychologic: Affect anxious, judgement normal, mood normal. [] Current Patient Data Vital Signs Vital Signs Date Time Temp Pulse Resp B/P (MAP) Pulse Ox O2 Delivery O2 Flow Rate FiO2 09/20/17 19:03 60 18 152/62 (92) 94 Room Air 09/20/17 17:15 97.9 Lab Results Laboratory Tests Test 09/20/17 18:53 White Blood Count 15.0 x10^3/uL (4.0-11.0) H Red Blood Count 4.22 x10^6/uL (3.50-5.40) Hemoglobin 12.7 g/dL (12.0-15.5) Hematocrit 38.4 % (36.0-47.0) Mean Corpuscular Volume 91 fL (79-100) Mean Corpuscular Hemoglobin 30 pg (25-35) Mean Corpuscular Hemoglobin Concent 33 g/dL (31-37) Red Cell Distribution Width 13.9 % (11.5-14.5) Platelet Count 394 x10^3/uL (140-400) # Neutrophils (%) (Auto) 82 % (31-73) H Lymphocytes (%) (Auto) 11 % (24-48) L Monocytes (%) (Auto) 6 % (0-9) Eosinophils (%) (Auto) 1 % (0-3) Basophils (%) (Auto) 0 % (0-3) Neutrophils # (Auto) 12.3 x10^3uL (1.8-7.7) H Lymphocytes # (Auto) 1.6 x10^3/uL (1.0-4.8) Monocytes # (Auto) 0.8 x10^3/uL (0.0-1.1) Eosinophils # (Auto) 0.2 x10^3/uL (0.0-0.7) Basophils # (Auto) 0.0 x10^3/uL (0.0-0.2) Segmented Neutrophils % 84 % (35-66) H Lymphocytes % 14 % (24-48) L Eosinophils % 1 % (0-5) Myelocytes % 1 % (0-0) H Platelet Estimate Adequate (ADEQUATE) Prothrombin Time 19.1 SEC (9.4-11.4) H Prothrombin Time INR 1.9 (0.9-1.1) H PTT 32 SEC (23-33) D-Dimer (Meka) 1.99 mg/L (0.00-0.50) H Urine Collection Type Unknown Urine Color Yellow Urine Clarity Hazy Urine pH 5.0 Urine Specific Baker 1.020 Urine Protein Neg (NEG-TRACE) Urine Glucose (UA) Neg mg/dL (NEG) Urine Ketones (Stick) Neg mg/dL (NEG) Urine Blood Neg (NEG) Urine Nitrite Neg (NEG) Urine Bilirubin Neg (NEG) Urine Urobilinogen Dipstick 0.2 mg/dL (0.2 mg/dL) Urine Leukocyte Esterase Small (NEG) Urine RBC 3-5 /HPF (0-2) Urine WBC 5-10 /HPF (0-4) Urine Squamous Epithelial Cells Few /LPF Urine Bacteria 0 /HPF (0-FEW) Urine Hyaline Casts Few /HPF Urine Mucus Slight /LPF Sodium Level 136 mmol/L (136-145) Potassium Level 4.2 mmol/L (3.5-5.1) Chloride Level 99 mmol/L (98-107) Carbon Dioxide Level 28 mmol/L (21-32) Anion Gap 9 (6-14) Blood Urea Nitrogen 44 mg/dL (7-20) H Creatinine 1.8 mg/dL (0.6-1.0) H Estimated GFR (Cockcroft-Gault) 26.7 Glucose Level 121 mg/dL (70-99) H Calcium Level 9.7 mg/dL (8.5-10.1) Magnesium Level 1.8 mg/dL (1.8-2.4) Total Bilirubin 0.3 mg/dL (0.2-1.0) Direct Bilirubin 0.1 mg/dL (0.0-0.2) Aspartate Amino Transferase (AST) 26 U/L (15-37) Alanine Aminotransferase (ALT) 48 U/L (14-59) Alkaline Phosphatase 102 U/L (46-116) Creatine Kinase 52 U/L (26-192) Creatine Kinase MB (Mass) 1.3 ng/mL (0.0-3.6) Creatine Kinase MB Relative Index 2.5 % (0-4) Troponin I Quantitative < 0.017 ng/mL (0-0.055) KL-Hmj-N-Type Natriuretic Peptide 1308 pg/mL (0-449) H Total Protein 8.4 g/dL (6.4-8.2) H Albumin 3.4 g/dL (3.4-5.0) Lipase 164 U/L (73-393) Urine Opiates Screen Neg (NEG) Urine Methadone Screen Neg (NEG) Urine Barbiturates Neg (NEG) Urine Phencyclidine Screen Neg (NEG) Urine Amphetamine/Methamphetamine Neg (NEG) Urine Benzodiazepines Screen Neg (NEG) Urine Cocaine Screen Neg (NEG) Urine Cannabinoids Screen Neg (NEG) Urine Ethyl Alcohol Neg (NEG) EKG EKG My interpretation EKG shows a paced rate of 50 bpm. Radiology/Procedures Radiology/Procedures My interpretation chest x-ray shows chronic changes. Some blunting of left closed phrenic angle. Cardiomegaly. Degenerative joint changes. Pacer. Marked kyphosis.-Compression fractures. Surgical clips in abdomen[] Course & Med Decision Making Course & Med Decision Making Pertinent Labs and Imaging studies reviewed. (See chart for details). Discussed presentation testing and treatment plan with Dr. Magana- will admit for further eval and tx. . Ultrasound pending at time of admission. [] Final Impression Final Impression 1. Dyspnea 2. CHF 3. Elevated BU and and creatinine-renal insufficiency 4. Diabetes 5. Leukocytosis 6. Elevated d-dimer 7. Urinary tract infection [] Dragon Disclaimer Dragon Disclaimer This electronic medical record was generated, in whole or in part, using a voice recognition dictation system. KATHLEEN KIDD MD Sep 20, 2017 17:54
[2017-09-20] MEDS ORDERED: ASPIRIN 81 MG TAB.CHEW PO ONE (18:30)
[2017-09-20] MEDS: IV NORMAL SALINE 1,000ML 1,000 ML IV SCH ×2 (18:41→23:11)
[2017-09-20 19:14] LABS: BASO % 0 % (0-3); EOS # 0.2 x10^3/uL (0.0-0.7); EOS % 1 % (0-3); HEMATOCRIT 38.4 % (36.0-47.0); HEMOGLOBIN 12.7 g/dL (12.0-15.5); LYMPH # 1.6 x10^3/uL (1.0-4.8); LYMPH % 11 % (24-48); MEAN CORPUSCULAR HEMOGLOBIN 30 pg (25-35); MEAN CORPUSCULAR HGB CONC 33 g/dL (31-37); MEAN CORPUSCULAR VOLUME 91 fL (79-100); MONO # 0.8 x10^3/uL (0.0-1.1); MONO % 6 % (0-9); NEUT # 12.3 x10^3uL (1.8-7.7); NEUT % 82 % (31-73); PLATELET COUNT 394 x10^3/uL (140-400); RED BLOOD COUNT 4.22 x10^6/uL (3.50-5.40); RED CELL DISTRIBUTION WIDTH 13.9 % (11.5-14.5)
[2017-09-20 19:36] LABS: AMPHETAMINE/METHAMPHETAMINE NEG (NEG); BARBITURATES NEG (NEG); BENZODIAZEPINES NEG (NEG); CANNABINOIDS NEG (NEG); COCAINE NEG (NEG); METHADONE NEG (NEG); OPIATES NEG (NEG); PHENCYCLIDINE NEG (NEG)
[2017-09-20 19:45] LABS: ALBUMIN 3.4 g/dL (3.4-5.0); CALCIUM 9.7 mg/dL (8.5-10.1); CREATININE 1.8 mg/dL (0.6-1.0); DIRECT BILIRUBIN 0.1 mg/dL (0.0-0.2); GFR 26.7; MAGNESIUM 1.8 mg/dL (1.8-2.4); POTASSIUM 4.2 mmol/L (3.5-5.1); TOTAL BILIRUBIN 0.3 mg/dL (0.2-1.0); TOTAL PROTEIN 8.4 g/dL (6.4-8.2)
[2017-09-20 19:55] LABS: BILIRUBIN,URINE NEG (NEG); CLARITY,URINE HAZY; COLOR,URINE YELLOW; GLUCOSE,URINE NEG (NEG); NITRITE,URINE NEG (NEG); UROBILINOGEN,URINE 0.2 mg/dL (0.2 mg/dL)
[2017-09-20 19:56] LABS: BACTERIA,URINE 0 /HPF (0-FEW); HYALINE CASTS, URINE FEW /HPF; SQUAMOUS EPITHELIAL CELL,UR FEW /LPF
[2017-09-20] MEDS ORDERED: IV NORMAL SALINE 50ML 50 ML ONE (20:42)
[2017-09-20] MEDS ORDERED: cefTRIAXone SODIUM 1 GM VIAL IV ONE (20:42)
[2017-09-20] MEDS ORDERED: ENOXAPARIN 40 MG/0.4 ML SYRINGE. SQ ONE (20:45)
[2017-09-20] MEDS ORDERED: FUROSEMIDE 40 MG TABLET PO ONE (20:45)
[2017-09-20 22:08] LABS: % EOS 1 % (0-5); % LYMPHS 14 % (24-48); % MYELOS 1 % (0-0); % SEGS 84 % (35-66)
[2017-09-20 22:12] LABS: PLT ESTIMATE ADEQUATE (ADEQUATE)
[2017-09-21 00:01] VITALS: BP 145/58
[2017-09-21 06:01] VITALS: BP 122/61
[2017-09-21] MEDS: FUROSEMIDE 40 MG TABLET PO SCH (06:33)
[2017-09-21 06:47] LABS: BASO # 0.1 x10^3/uL (0.0-0.2); BASO % 1 % (0-3); EOS # 0.3 x10^3/uL (0.0-0.7); EOS % 3 % (0-3); HEMATOCRIT 35.1 % (36.0-47.0); HEMOGLOBIN 11.6 g/dL (12.0-15.5); LYMPH # 2.1 x10^3/uL (1.0-4.8); LYMPH % 16 % (24-48); MEAN CORPUSCULAR HEMOGLOBIN 30 pg (25-35); MEAN CORPUSCULAR HGB CONC 33 g/dL (31-37); MEAN CORPUSCULAR VOLUME 91 fL (79-100); MONO # 0.9 x10^3/uL (0.0-1.1); MONO % 7 % (0-9); NEUT # 9.7 x10^3uL (1.8-7.7); NEUT % 74 % (31-73); PLATELET COUNT 397 x10^3/uL (140-400); RED BLOOD COUNT 3.87 x10^6/uL (3.50-5.40); RED CELL DISTRIBUTION WIDTH 14.4 % (11.5-14.5); WHITE BLOOD COUNT 13.1 x10^3/uL (4.0-11.0)
[2017-09-21 07:11] LABS: CALCIUM 8.9 mg/dL (8.5-10.1); CREATININE 1.6 mg/dL (0.6-1.0); GFR 30.6; POTASSIUM 3.9 mmol/L (3.5-5.1)
--- NOTE | 2017-09-21 08:13 | RAD ---
Indication: Shortness of breath TECHNIQUE: PA and lateral views of the chest COMPARISON: Previous study from 03/26/2017 FINDINGS: Heart is normal in size. Dual lead cardiac pacer is seen with its leads ejecting over the heart. Mild patchy opacities are seen in the left lower lobe. Otherwise, lungs are clear.. No pneumothorax or pleural effusion. Visualized bony thorax within normal limits. IMPRESSION: Mild left basilar opacities may be secondary to pneumonia or atelectasis. Electronically signed by: Homar Moseley DO (09/21/2017 8:10 AM) [facility]
[2017-09-21] MEDS ORDERED: METOPROLOL TART IMMED RELEASE 50 MG TABLET PO SCH (09:00)
[2017-09-21] MEDS: ASPIRIN 81 MG TAB.CHEW PO SCH (09:03)
--- NOTE | 2017-09-21 10:13 | PDOC2 ---
YTLER CAT COLLAR POINTER 09/21/17 1013: CONSULT Date of Admission DATE: 09/21/17 TIME: 10:09 Reason for Consult: Chest pain and congestive heart failure Referring Physician: Dr Magana Problem List Problems Medical Problems: (1) Chest discomfort Status: Acute History of Present Illness This is a pleasant 87-year-old female who presented to the emergency room last night with chief complaint of dyspnea. She has a history of mild coronary artery disease by cardiac catheterization in April,, pacemaker placement , hypertension, hyperlipidemia, and obstructive sleep apnea. This morning as I visit with her she is slightly confused and poor historian. She tells me that her daughter forced her to come to the hospital and that she had had some kidney issues. I asked her about the shortness of breath she is heading on all of her symptoms about maybe having them but she is unsure. When I ask her about the chest pain she says maybe but not for a while. We know just see from the office and she usually is a good historian and able to tell me all of her history so this is a definitive difference. She denies chest pain at this current point and denies shortness of breath, fever, cough, chills. But I am not sure that she is fully aware of what her symptoms have been. She tells me that her daughter Larissa has been very concerned about her and asked her to come into the hospital. Allergies CELEBREX: Hives Medications atorvastatin 40 mg tabletTake 1 tablet(s) every other day by oral route. Bystolic 10 mg tabletTake 1 tablet(s) every day by oral route. chlorthalidone 25 mg tabletTake 1 tablet(s) every day by oral route. Coumadin 2 mg tabletTake 1 tablet(s) every day by oral route. Diovan 320 mg tabletTake 1 tablet(s) every day by oral route. magnesium oxide 400 mg capsuleTake 1 capsule(s) twice a day by oral route. potassium chloride ER 20 mEq tablet,extended releaseTake 1 tablet(s) twice a day by oral route., start 01/06/2017 Singulair 10 mg tabletTake 1 tablet(s) every day by oral route. sucralfate 1 gram tabletTake 1 tablet(s) twice a day by oral route. Zoloft 50 mg tabletTake 1 tablet(s) every day by oral route. Family History Father - Diabetes mellitus ( age: 97) - Cardiac pacemaker in situ Mother - Heart failure ( age: 66) Social History Occupation: Retired Marital status: Live alone or with others?: with others Diet: Regular Exercise level: Moderate Smoking Status: Former smoker (Notes: Quit 30 years ago) Smoker (1 PPD) Alcohol intake: None Caffeine intake: Occasional Surgical History Pacemaker Placement Appendectomy, Hysterectomy, Pacemaker, Tonsillectomy Past Medical History Coronary Artery Disease: Y Deep Vein Thrombosis: Y High Cholesterol: Y Hypertension: Y Pacemaker: Y Acid Reflux (GERD): Y Chronic Kidney Disease: Y Asthma: Y ROS: Review of 10 organ systems is negative except for as in HPI. Physical Exam Patient is an 87-year-old female. GENERAL: This is a well developed, well nourished female. No apparent distress. SKIN: Warm and dry with normal skin turgor. Negative for pallor. No lesions or rashes noted. EYES: Conjunctiva are clear. Extraocular movements are intact. No xanthelasma. HEAD AND NECK: Oral mucosa is moist. There is no cyanosis. Neck is supple. Jugular venous pressure is flat. Carotid pulses are 2/2 bilaterally. No carotid bruits. There is no obvious thyromegaly. HEART: Regular rate and rhythm. Normal S1 and S2. No S3. No S4. + systolic murmur LUNGS: Effort is good. There is symmetric expansion bilaterally. Clear to auscultation bilaterally. No wheezes. No crackles. No rhonchi. ABDOMEN: Normal active bowel sounds. Soft. Nontender. EXTREMITIES: No clubbing. No cyanosis. left lower extremity trace edema and none on the right Palpable pedal pulses. MUSCULOSKELETAL: No kyphosis. No scoliosis. No localized tenderness or stiffness. Gait appears normal. NEUROLOGIC: Alert and oriented times three. Cranial nerves III-XII are grossly intact. Good motor tone and strength in the upper and lower extremities bilaterally. PSYCHOLOGIC: This is a pleasant patient with a normal affect. Procedure: ECHOCARDIOGRAM IMPRESSION (03/02/2016): The left ventricle is normal in size. There is normal left ventricular wall thickness. There is paradoxical septal motion consistent with a pacemaker. The left ventricular systolic function is normal with a visually estimated ejection fraction of 55-60%. There is evidence of impaired left ventricular relaxation suggestive of stage I diastolic dysfunction. There is a pacemaker or defibrillator lead seen in the right heart chambers. The left atrium appears mildly dilated. The aortic root appears mildly dilated at 3.6 cm. There is mild aortic valve sclerosis. There is mild mitral annular calcification. There is mild pulmonic regurgitation. There is moderate mitral and tricuspid regurgitation. The estimated pulmonary artery systolic pressure is 46 mmHg, consistent with moderate pulmonary hypertension. Compared to the report (images were not available for review) of the study dated 02/19/2015, left atrial dilatation is a new finding, but the left ventricular diastolic dysfunction appears to have improved. LEXISCAN NUCLEAR STRESS TEST IMPRESSION (01/25/2015): Hemodynamic response: There was a normal heart rate and a normal blood pressure response to stress. Clinical response: There was no chest pain during stress. Arrhythmias: None. Stress ECG: Indeterminate due to underlying ventricular paced rhythm. Myocardial perfusion: Normal perfusion without evidence of infarction or ischemia. Wall motion: Normal. Ejection fraction: 63%. Compared to the previous study performed on 08/25/2014, there was no significant change. Assessment / Plan Dyspnea on exertion - Her chest xray does show possible pneumonia with an elevated white count. Started on oral Lasix and will monitor her lab and xray. Her kidney function at baseline is Stage II so will continue gentle diuresis. Coronary artery disease, mild. The patient is doing well without any angina. We will continue optimal medical therapy. Moderate Mitral regurgitation and Tricuspid regurgitation Essential Hypertension, controlled. Resume home medications Hyperlipidemia. Her goal LDL is < 100 mg/dL. Continue statin. Sick sinus syndrome s/p Pacemaker placement. Will plan for PM check she has missed her last several in office. Frequent PVCs - Improved with Magnesium and Beta lloyd Chronic kidney disease, Stage 2 - At baseline Pulmonary hypertension, moderate - Secondary likely to asthma. Current Medications Current Medications Aspirin (Children'S Aspirin) 324 mg 1X ONCE PO Last administered on 09/20/17at 18:40; Start 09/20/17 at 18:30; Stop 09/20/17 at 18:31; Status DC Sodium Chloride 1,000 ml @ 100 mls/hr Q10H IV Last administered on 09/20/17at 23:11; Start 09/20/17 at 18:30; Stop 09/21/17 at 04:29; Status DC Enoxaparin Sodium (Lovenox 40mg Syringe) 40 mg 1X ONCE SQ Last administered on 09/20/17at 20:47; Start 09/20/17 at 20:45; Stop 09/20/17 at 20:46; Status DC Ceftriaxone Sodium 1 gm/ Sodium Chloride 50 ml @ 100 mls/hr 1X ONCE IV Last administered on 09/20/17at 20:54; Start 09/20/17 at 20:45; Stop 09/20/17 at 21:14 ; Status DC Furosemide (Lasix) 40 mg 1X ONCE PO Last administered on 09/20/17at 20:46; Start 09/20/17 at 20:45; Stop 09/20/17 at 20:46; Status DC Sodium Chloride 50 ml @ As Directed STK-MED ONCE .ROUTE ; Start 09/20/17 at 20: 42; Stop 09/20/17 at 20:43; Status DC Ceftriaxone Sodium (Rocephin) 1 gm STK-MED ONCE IV ; Start 09/20/17 at 20:42; Stop 09/20/17 at 20:43; Status DC Enoxaparin Sodium (Lovenox 40mg Syringe) 40 mg Q24H SQ ; Start 09/21/17 at 21:00 Furosemide (Lasix) 40 mg DAILY06 PO Last administered on 09/21/17at 06:33; Start 09/21/17 at 06:00 Aspirin (Children'S Aspirin) 81 mg DAILY PO Last administered on 09/21/17at 09: 03; Start 09/21/17 at 09:00 Ceftriaxone Sodium (Rocephin Im) 1 gm Q24H IM ; Start 09/21/17 at 21:00 Active Scripts Active Tylenol With Codeine #3 Tablet (Acetaminophen With Codeine) 1 Each Tablet 1 Tab PO Q6HRS Mucinex (Guaifenesin) 600 Mg Tablet.er 1 Tab PO BID Tessalon Perle (Benzonatate) 100 Mg Capsule 1 Cap PO TID Reported Tramadol Hcl (Tramadol HCl) 50 Mg Tablet 1 Tab PO PRN Q6HRS Nexium Capsule (Esomeprazole Magnesium) 40 Mg Capsule.dr 40 Mg PO BID Carafate (Sucralfate) 1 Gm Tablet 1 Gm PO TIDAC K-Tab ER (Potassium Chloride) 20 Meq Tablet.er 20 Meq PO DAILY Protonix (Pantoprazole Sodium) 40 Mg Tablet.dr 40 Mg PO BID Coreg (Carvedilol) 12.5 Mg Tablet 12.5 Mg PO BIDWMEALS Diovan (Valsartan) 160 Mg Tablet 160 Mg PO HS Lipitor (Atorvastatin Calcium) 40 Mg Tablet 40 Mg PO HS for high cholesterol last dose 09/03 pm next dose due 09/04 pm Albuterol Sulfate Neb Soln (Albuterol Sulfate) 0.63 Mg/3 Ml Vial.neb 0.63 Mg IH Q4HRS PRN for shortness of breath last dose prior to admit may use as needed Lasix (Furosemide) 20 Mg Tablet 20 Mg PO DAILY PRN as needed for swelling last dose prior to admit next dose due as needed Imdur (Isosorbide Mononitrate) 30 Mg Tab.er.24h 30 Mg PO DAILY for angina/heart last dose 09/04 am next dose due 09/05 am Singulair Tablet (Montelukast Sodium) 10 Mg Tablet 10 Mg PO DAILY for allergies last dose 09/03 pm next dose due 09/04 pm Nitrolingual (Nitroglycerin) 12 Gm [place] 0.4 Mg SL PRN PRN as needed for chest pain use as needed Ecotrin (Aspirin) 81 Mg Tablet.dr 81 Mg PO DAILY for heart health last dose 09/04 am next dose due 09/05 am Coumadin (Warfarin Sodium) 4 Mg Tablet 5 Mg PO WEEKLY 3mg Wednesday 4mg on Wed, Wed, , . Allergies: Coded Allergies: celecoxib (Verified Allergy, Intermediate, 04/28/14) VITALS Vital Signs Date Time Temp Pulse Resp B/P (MAP) Pulse Ox O2 Delivery O2 Flow Rate FiO2 09/21/17 06:01 98.1 59 20 122/61 (81) 91 09/20/17 22:30 Room Air Labs Laboratory Tests Test 09/20/17 18:53 09/21/17 06:38 09/21/17 07:34 White Blood Count 15.0 x10^3/uL (4.0-11.0) 13.1 x10^3/uL (4.0-11.0) Red Blood Count 4.22 x10^6/uL (3.50-5.40) 3.87 x10^6/uL (3.50-5.40) Hemoglobin 12.7 g/dL (12.0-15.5) 11.6 g/dL (12.0-15.5) Hematocrit 38.4 % (36.0-47.0) 35.1 % (36.0-47.0) Mean Corpuscular Volume 91 fL (79-100) 91 fL (79-100) Mean Corpuscular Hemoglobin 30 pg (25-35) 30 pg (25-35) Mean Corpuscular Hemoglobin Concent 33 g/dL (31-37) 33 g/dL (31-37) Red Cell Distribution Width 13.9 % (11.5-14.5) 14.4 % (11.5-14.5) Platelet Count 394 x10^3/uL (140-400) 397 x10^3/uL (140-400) Neutrophils (%) (Auto) 82 % (31-73) 74 % (31-73) Lymphocytes (%) (Auto) 11 % (24-48) 16 % (24-48) Monocytes (%) (Auto) 6 % (0-9) 7 % (0-9) Eosinophils (%) (Auto) 1 % (0-3) 3 % (0-3) Basophils (%) (Auto) 0 % (0-3) 1 % (0-3) Neutrophils # (Auto) 12.3 x10^3uL (1.8-7.7) 9.7 x10^3uL (1.8-7.7) Lymphocytes # (Auto) 1.6 x10^3/uL (1.0-4.8) 2.1 x10^3/uL (1.0-4.8) Monocytes # (Auto) 0.8 x10^3/uL (0.0-1.1) 0.9 x10^3/uL (0.0-1.1) Eosinophils # (Auto) 0.2 x10^3/uL (0.0-0.7) 0.3 x10^3/uL (0.0-0.7) Basophils # (Auto) 0.0 x10^3/uL (0.0-0.2) 0.1 x10^3/uL (0.0-0.2) Segmented Neutrophils % 84 % (35-66) Lymphocytes % 14 % (24-48) Eosinophils % 1 % (0-5) Myelocytes % 1 % (0-0) Platelet Estimate Adequate (ADEQUATE) Prothrombin Time 19.1 SEC (9.4-11.4) Prothromb Time International Ratio 1.9 (0.9-1.1) Activated Partial Thromboplast Time 32 SEC (23-33) D-Dimer (Meka) 1.99 mg/L (0.00-0.50) Urine Collection Type Unknown Urine Color Yellow Urine Clarity Hazy Urine pH 5.0 Urine Specific Breaks 1.020 Urine Protein Neg (NEG-TRACE) Urine Glucose (UA) Neg mg/dL (NEG) Urine Ketones (Stick) Neg mg/dL (NEG) Urine Blood Neg (NEG) Urine Nitrite Neg (NEG) Urine Bilirubin Neg (NEG) Urine Urobilinogen Dipstick 0.2 mg/dL (0.2 mg/dL) Urine Leukocyte Esterase Small (NEG) Urine RBC 3-5 /HPF (0-2) Urine WBC 5-10 /HPF (0-4) Urine Squamous Epithelial Cells Few /LPF Urine Bacteria 0 /HPF (0-FEW) Urine Hyaline Casts Few /HPF Urine Mucus Slight /LPF Sodium Level 136 mmol/L (136-145) 139 mmol/L (136-145) Potassium Level 4.2 mmol/L (3.5-5.1) 3.9 mmol/L (3.5-5.1) Chloride Level 99 mmol/L (98-107) 102 mmol/L (98-107) Carbon Dioxide Level 28 mmol/L (21-32) 29 mmol/L (21-32) Anion Gap 9 (6-14) 8 (6-14) Blood Urea Nitrogen 44 mg/dL (7-20) 37 mg/dL (7-20) Creatinine 1.8 mg/dL (0.6-1.0) 1.6 mg/dL (0.6-1.0) Estimated GFR (Cockcroft-Gault) 26.7 30.6 Glucose Level 121 mg/dL (70-99) 102 mg/dL (70-99) Calcium Level 9.7 mg/dL (8.5-10.1) 8.9 mg/dL (8.5-10.1) Magnesium Level 1.8 mg/dL (1.8-2.4) Total Bilirubin 0.3 mg/dL (0.2-1.0) Direct Bilirubin 0.1 mg/dL (0.0-0.2) Aspartate Amino Transf (AST/SGOT) 26 U/L (15-37) Alanine Aminotransferase (ALT/SGPT) 48 U/L (14-59) Alkaline Phosphatase 102 U/L (46-116) Creatine Kinase 52 U/L (26-192) Creatine Kinase MB (Mass) 1.3 ng/mL (0.0-3.6) Creatine Kinase MB Relative Index 2.5 % (0-4) Troponin I Quantitative < 0.017 ng/mL (0-0.055) QO-Xiq-V-Type Natriuretic Peptide 1308 pg/mL (0-449) Total Protein 8.4 g/dL (6.4-8.2) Albumin 3.4 g/dL (3.4-5.0) Lipase 164 U/L (73-393) Urine Opiates Screen Neg (NEG) Urine Methadone Screen Neg (NEG) Urine Barbiturates Neg (NEG) Urine Phencyclidine Screen Neg (NEG) Urine Amphetamine/Methamphetamine Neg (NEG) Urine Benzodiazepines Screen Neg (NEG) Urine Cocaine Screen Neg (NEG) Urine Cannabinoids Screen Neg (NEG) Urine Ethyl Alcohol Neg (NEG) Glucose (Fingerstick) 89 mg/dL (70-99) TALYA ESTES Jr, MD 09/22/17 0615: CONSULT Assessment/Plan The patient was seen by Tyler Cat APRN and I have reviewed her findings and plan and agree with above. Due to staffing constraints, we did not have an attending available on this day to see the patient. MD BARTOLO Balbuena Jr., JANAE M APRN Sep 21, 2017 10:13 TALYA ESTES Jr, MD Sep 22, 2017 06:15
[2017-09-21 11:30] VITALS: BP 126/70
--- NOTE | 2017-09-21 13:50 | RAD ---
Indication: Dyspnea. Elevated d-dimer. TECHNIQUE: Ventilation scan was performed with 24 mCi of xenon-133 gas. Perfusion scan was performed with 5.4 mCi of technetium 99m MAA. COMPARISON: None FINDINGS: Relatively homogeneous distribution of xenon gas seen in the ventilation phase with significant retention suggesting COPD. The perfusion images demonstrates heterogenous distribution of the agent with multifocal areas of photopenia. IMPRESSION: 1. Findings of COPD. 2. Indeterminate VQ scan. Consider CT chest angiography. Electronically signed by: Homar Moseley DO (09/21/2017 1:46 PM) [facility]
--- NOTE | 2017-09-21 14:21 | RAD ---
EXAM: Bilateral lower extremity venous Doppler sonogram. HISTORY: Elevated d-dimer. Swelling. TECHNIQUE: Angel scale and color Doppler sonographic evaluation of the bilateral lower extremity veins with spectral waveform analysis was performed. FINDINGS: There is normal color flow, normal compressibility and there are normal spectral waveforms in the common femoral, superficial femoral, popliteal, posterior tibial and greater saphenous veins. IMPRESSION: No Doppler evidence of lower extremity deep venous thrombosis. Electronically signed by: Breonna Myers MD (09/21/2017 2:18 PM) [place] [id number]
[2017-09-21 14:53] VITALS: BP 147/73
[2017-09-21] MEDS ORDERED: VALS320T2 PO (16:25)
[2017-09-21] MEDS ORDERED: WARF2TAB96 PO (16:25)
[2017-09-21] MEDS ORDERED: SERT50TA PO (16:25)
[2017-09-21] MEDS ORDERED: MAGN400T3 PO (16:25)
[2017-09-21] MEDS ORDERED: CHLO25TA PO (16:25)
[2017-09-21] MEDS ORDERED: NEBI10TA3 PO (16:25)
[2017-09-21] MEDS ORDERED: IV NORMAL SALINE 1,000ML 1,000 ML IV SCH (16:30)
[2017-09-21] MEDS ORDERED: NON FORMULARY ITEM (Albuterol Sulfate (Albuterol Sulfate Neb Soln) 0.63 MG) IH PRN (16:45)
[2017-09-21] MEDS ORDERED: ALBUTEROL SULFATE 2.5 MG/3 ML NEBU. NEB PRN (16:45)
[2017-09-21] MEDS ORDERED: WARFARIN 3 MG TABLET. PO SCH (17:00)
[2017-09-21] MEDS ORDERED: cefTRIAXone IV Push 1 GM VIAL. IVP SCH (17:00)
[2017-09-21 19:27] VITALS: BP 103/51
--- NOTE | 2017-09-21 19:41 | HP ---
ADMIT DATE: 09/20/2017 HISTORY OF PRESENT ILLNESS: The patient is an 87-year-old female patient who came to the Emergency Room with chief complaint of shortness of breath. She has a history of mild coronary artery disease by cardiac catheterization, permanent pacemaker, hypertension, hyperlipidemia and obstructive sleep apnea. She was forced by her daughter to come to the hospital. However, she has some intermittent chest pain according to her daughter, although we could not really elaborate on that further. She apparently was evaluated in the Emergency Room. Her EKG was paced rate at 50 beats per minute. Chest x-ray showed chronic changes, some blunting of the left costophrenic angle, cardiomegaly and marked kyphosis and compression fracture. She was admitted with dyspnea, congestive heart failure; elevated BUN and creatinine, probably on the basis of chronic renal failure, has leukocytosis, elevated D-dimer and urinary tract infection, although her urinalysis was really unremarkable. There is only 5-10 wbc's, but is negative for nitrite; and small leukocyte esterase and no bacteria. However, her chest x-ray showed features that consisted of mild left basilar opacities, may be secondary to pneumonia or atelectasis. The patient was admitted and was started on IV antibiotic in the form of ceftriaxone and Zithromax. Her D-dimer was high, she underwent a V/Q scan, which was read as a finding of COPD and indeterminate V/Q scan and the radiologist recommended to consider a CT scan of the chest; however, her kidney function is abnormal, that is the very reason why she has a V/Q scan. She also had Doppler ultrasound of both lower extremities that showed no Doppler evidence of lower extremity deep vein thrombosis. PAST MEDICAL HISTORY: Significant for coronary artery disease, hypertension, hyperlipidemia, sick sinus syndrome, status post permanent pacemaker; gastroesophageal reflux disease, chronic kidney disease, asthma, and deep vein thrombosis. PAST SURGICAL HISTORY: Significant for vein stripping, total abdominal hysterectomy, bilateral salpingo-oophorectomy, appendectomy, tonsillectomy, permanent pacemaker implantation, and colonoscopy. ALLERGIES: She is allergic to CELEBREX. MEDICATIONS: She is currently on the following medications: Atorvastatin 40 mg at bedtime, Bystolic 10 mg once a day, chlorthalidone 25 mg once a day, Coumadin 2 mg once a day, Diovan 320 mg once a day, magnesium oxide 400 mg daily, potassium chloride extended release 20 mEq twice a day, Singulair 10 mg once a day and sucralfate 1 gram twice a day and Zoloft 50 mg every other day. FAMILY HISTORY: Her father at the age of 97 because of complication of diabetes. Mother of heart failure at the age of 66. SOCIAL HISTORY: She is and lives with her . 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 She lives with her and one daughter. She quit smoking 30 years ago, used to smoke 1 pack per day. She does not drink alcohol or use and any recreational drugs. REVIEW OF SYSTEMS: As per history of present illness. PHYSICAL EXAMINATION GENERAL: When I examined her, she was a well-developed, well-nourished 87-year-old female patient, in no apparent respiratory distress. She was slightly pale, but no jaundice or cyanosis. No lymphadenopathy, no thyromegaly. No jugular venous distension. No limb edema. VITAL SIGNS: Her heart rate was 64, blood pressure was 113/41, temperature was 97.9, respiratory rate was 18 and oxygen saturation was 93% on room air. HEAD, EYES, EARS, NOSE AND THROAT: Showed normocephalic, atraumatic. NECK: Supple. HEART: Showed normal first and second heart sounds. No gallop, rub or murmur. CHEST: Clear to auscultation. No crepitation or rhonchi. ABDOMEN: Distended, soft, nontender. No guarding or rigidity. No organomegaly. All hernial orifices are intact. Bowel sounds are normal. NEUROLOGIC: She is hard of hearing, but other cranial nerves are intact. She moves her extremities without difficulty. She ambulates without assistance or assistive devices. On questioning her, she stated that she is also fairly independent. She cook the food. She have shower on her own, dress and undress, do the laundry; however, her daughter thinks that she is now unable to take care of her dad and that perhaps both of them might require long-term care at least Assisted Living. LABORATORY DATA: On admission showed a white cell count of 15,000, hemoglobin 12.7, hematocrit 38, MCV 91, and platelet count of 394,000 with normal manual differential. Her serum sodium was 136, potassium 4.2, chloride 99, bicarbonate 28, anion gap of 9, BUN 44, creatinine 1.8, estimated GFR was 26.7, glucose was 121, calcium was 9.7, magnesium was 1.8. Total bilirubin, AST, ALT, and alkaline phosphatase were normal. Her beta natriuretic peptide was 1308. Her total protein was 8.4, albumin was 3.6. Her TSH was 2.445. Her prothrombin time was 19.1, INR of 1.9, aPTT was 32 and D-dimer was 1.99 mg/dL. Urinalysis showed the urine was yellow, hazy with a pH of 5, specific gravity of 1.020. The urine was negative for protein, glucose, ketones, blood, and nitrite. There was small amount of leukocyte esterase with 3-5 rbc's, 5-10 wbc's, 0 bacteria. Urine toxicology screen was negative. IMAGING DATA: She has had chest x-ray, which showed that the heart is normal in size, a dual lead cardiac pacemaker is seen with its leads projecting over the heart. Mild patchy opacities are seen in the left lower lobe, otherwise lungs are clear, no pneumothorax, pleural effusion; visualized bony thorax within normal limits. Her ventilation perfusion scan showed a relatively homogenous distribution of Xenon gas seen in the ventilation phase, but significant retention suggesting COPD. The perfusion images demonstrate heterogenous distribution of the agent with multiple areas of photopenia with the impression that the patient has findings of chronic obstructive pulmonary disease and indeterminate V/Q scan and to consider CT angio, arrangement has been made for her to have also bilateral lower extremity venous Doppler ultrasound. IMPRESSION: In summary, this is an 87-year-old female patient who came in with shortness of breath. Her V/Q scan is indeterminate. She is already on Coumadin and her INR is 1.9, so it is not actually subtherapeutic. PLAN: My plan is to rehydrate her gently with maybe like normal saline at 50 mL per hour, repeat her lab works again, increase Coumadin to 2.5 or 3 mg. Repeat all her lab works tomorrow and continue with IV ceftriaxone and add Zithromax. JAMES SALMERON MD DR: YESY/dario JOB#: [id number] / [id number]
[2017-09-21] MEDS: LACTOBACILLUS RHAMNOSUS GG 1 CAPSULE. PO SCH (20:30)
[2017-09-21] MEDS: METOPROLOL TART IMMED RELEASE 50 MG TABLET PO SCH (20:31)
[2017-09-21] MEDS: MAGNESIUM OXIDE 400 MG TABLET PO SCH (20:31)
[2017-09-21] MEDS: SUCRALFATE 1 GM TABLET. PO SCH (20:31)
[2017-09-21] MEDS: POTASSIUM CHLORIDE 20 MEQ TABLET.ER. PO SCH (20:32)
[2017-09-21] MEDS ORDERED: ENOXAPARIN 40 MG/0.4 ML SYRINGE. SQ SCH (21:00)
[2017-09-21] MEDS ORDERED: ENOXAPARIN 30 MG/0.3 ML SYRINGE. SQ SCH (21:00)
[2017-09-21] MEDS ORDERED: cefTRIAXone IM 1 GM VIAL IM SCH (21:00)
[2017-09-21 22:52] VITALS: BP 137/57
--- NOTE | 2017-09-22 00:04 | PN ---
DATE: 09/21/2017 SUBJECTIVE: The patient is resting slightly propped up in bed, in no apparent respiratory distress. She came yesterday with shortness of breath. This morning, she continues to complain of shortness of breath; however, when I saw her this afternoon, denied any cough. She had intermittent chest pain, but she seemed to be more forgetful as her daughter has to remind her multiple times. PHYSICAL EXAMINATION: GENERAL: When I examined her, she was pale, but no jaundice, cyanosis or thyromegaly. No jugular venous distension. No lower limb edema. VITAL SIGNS: Her heart rate was 60, blood pressure was 147/73, temperature was 98, respiratory rate 22 and oxygen saturation was 93%. HEAD, EYES, EARS, NOSE AND THROAT: Showed normocephalic, atraumatic. NECK: Supple. HEART: Showed normal first and second heart sounds. No gallop, rub or murmur. CHEST: Clear to auscultation. No crepitation or rhonchi. ABDOMEN: Distended, soft, nontender. No guarding or rigidity. No organomegaly. Hernial orifice intact. Bowel sounds normal. NEUROLOGIC: She was hard of hearing, but otherwise all cranial nerves intact. She moves extremities without difficulty. She ambulates without assistance or assistive devices. LABORATORY DATA: Her lab work this morning showed a white cell count is down to 13,100, hemoglobin 11.6, hematocrit 35, MCV 91, and platelet count of 397,000. Her chemistry showed a serum sodium 139, potassium 3.9, chloride 102, bicarbonate 29, anion gap of 8, BUN 37, creatinine 1.6. Estimated GFR was 102. Her glucose was 89, calcium was 8.6. Her TSH was 2.445. Her first set of cardiac enzymes was negative. ASSESSMENT: 1. Dyspnea on exertion with chest x-ray showing possible pneumonia with leukocytosis. She apparently was given Lasix. 2. Coronary artery disease, has no evidence of angina. 3. Hypertension, seems to be well controlled. 4. Hyperlipidemia, on statin. 5. Sick sinus syndrome, status post permanent pacemaker. 6. Chronic kidney disease, improving. Her creatinine coming down from 1.8 to 1.4. 7. Pulmonary hypertension. PLAN: My plan is to continue with IV antibiotic in the form of ceftriaxone, continue with DVT prophylaxis. I will reconcile all her medication and will increase her Coumadin to 3 mg as her INR is subtherapeutic. JAMES SALMERON MD DR: YESY/dario JOB#: [id number] / [id number]
[2017-09-22] MEDS: ACETAMINOPHEN 325 MG TABLET PO PRN ×2 (00:29→13:05)
[2017-09-22 05:36] VITALS: BP 138/77
[2017-09-22] MEDS: FUROSEMIDE 40 MG TABLET PO SCH (06:09)
[2017-09-22 06:53] LABS: HEMOGLOBIN 12.1 g/dL (12.0-15.5); RED BLOOD COUNT 4.01 x10^6/uL (3.50-5.40); RED CELL DISTRIBUTION WIDTH 14.1 % (11.5-14.5); WHITE BLOOD COUNT 11.1 x10^3/uL (4.0-11.0)
[2017-09-22 07:07] LABS: ALBUMIN/GLOBULIN RATIO 0.7 (1.0-1.7); CALCIUM 8.9 mg/dL (8.5-10.1); CREATININE 1.5 mg/dL (0.6-1.0); POTASSIUM 4.3 mmol/L (3.5-5.1); TOTAL BILIRUBIN 0.3 mg/dL (0.2-1.0); TOTAL PROTEIN 7.2 g/dL (6.4-8.2)
[2017-09-22] MEDS ORDERED: AZITHROMYCIN 250 MG TABLET. PO SCH (09:00)
[2017-09-22] MEDS ORDERED: SERTRALINE 50 MG TABLET. PO SCH (09:00)
[2017-09-22] MEDS ORDERED: MONTELUKAST 10 MG TABLET. PO SCH (09:00)
[2017-09-22] MEDS ORDERED: NON FORMULARY ITEM (Nebivolol Hcl (Bystolic) 1 TAB) PO SCH (09:00)
--- NOTE | 2017-09-22 09:49 | PDOC ---
SUBJECTIVE Subjective: She is feeling better. She denies any chest pain or shortness of breath and is on room air Exam Constitutional: Denies fever or chills Eyes: Denies change in visual acuity HENT: Denies nasal congestion or sore throat Respiratory: Denies cough or shortness of breath Cardiovascular: Denies chest pain or edema GI: Denies abdominal pain, nausea, vomiting, bloody stools or diarrhea : Denies dysuria Musculoskeletal: Denies back pain or joint pain Integument: Denies rash Neurologic: Denies headache, focal weakness or sensory changes Endocrine: Denies polyuria or polydipsia Lymphatic: Denies swollen glands Psychiatric: Denies depression or anxiety OBJECTIVE Vital Signs Vital Signs Date Time Temp Pulse Resp B/P (MAP) Pulse Ox O2 Delivery O2 Flow Rate FiO2 09/22/17 05:36 98.3 60 20 138/77 (97) 93 Room Air Physical Exam Constitutional: Well developed, well nourished, no acute distress, non-toxic appearance. HENT: Normocephalic, atraumatic, bilateral external ears normal, oropharynx moist, no oral exudates, nose normal. Eyes: RAJ, EOMI, conjunctiva normal, no discharge. Neck: Normal range of motion, no tenderness, supple, no stridor. Cardiovascular: JVP not elevated. No carotid bruit. Nor precordial pulsations or heaves. S1 N,S2N. No murmurs. No rubs or clicks. Thorax and Lungs: NOrmal respiration. Normal chest expansion. Normal to percuss. Equal breath sounds. Lateral crackles. No wheeze. Abdomen: Bowel sounds normal, soft, no tenderness, no masses, no pulsatile masses. Skin: Warm, dry, no erythema, no rash. Back: No tenderness, no CVA tenderness. Extremities: Intact distal pulses, no tenderness, no cyanosis, no clubbing, ROM intact, mild left leg edema. Neurologic: Alert and oriented X 3, normal motor function, normal sensory function, no focal deficits noted. Psychologic: Affect normal, judgement normal, mood normal. Lab Laboratory Tests Test 09/22/17 06:23 White Blood Count 11.1 x10^3/uL (4.0-11.0) H Red Blood Count 4.01 x10^6/uL (3.50-5.40) Hemoglobin 12.1 g/dL (12.0-15.5) Hematocrit 36.0 % (36.0-47.0) Mean Corpuscular Volume 90 fL (79-100) Mean Corpuscular Hemoglobin 30 pg (25-35) Mean Corpuscular Hemoglobin Concent 34 g/dL (31-37) Red Cell Distribution Width 14.1 % (11.5-14.5) Platelet Count 368 x10^3/uL (140-400) Prothrombin Time 15.0 SEC (9.4-11.4) H Prothrombin Time INR 1.5 (0.9-1.1) H Sodium Level 136 mmol/L (136-145) Potassium Level 4.3 mmol/L (3.5-5.1) Chloride Level 98 mmol/L (98-107) Carbon Dioxide Level 30 mmol/L (21-32) Anion Gap 8 (6-14) Blood Urea Nitrogen 28 mg/dL (7-20) H Creatinine 1.5 mg/dL (0.6-1.0) H Estimated GFR (Cockcroft-Gault) 33.0 BUN/Creatinine Ratio 19 (6-20) Glucose Level 131 mg/dL (70-99) H Calcium Level 8.9 mg/dL (8.5-10.1) Total Bilirubin 0.3 mg/dL (0.2-1.0) Aspartate Amino Transferase (AST) 18 U/L (15-37) Alanine Aminotransferase (ALT) 30 U/L (14-59) Alkaline Phosphatase 81 U/L (46-116) Total Protein 7.2 g/dL (6.4-8.2) Albumin 3.0 g/dL (3.4-5.0) L Albumin/Globulin Ratio 0.7 (1.0-1.7) L MEDICATIONS Medications Current Medications Medications (Trade) Dose Ordered Sig/Rosa Elena Start Time Stop Time Status Last Admin Dose Admin Acetaminophen (Tylenol) 650 mg PRN Q6HRS PRN 09/22/17 00:00 09/22/17 00:29 650 MG Albuterol Sulfate (Ventolin) 2.5 mg PRN TID PRN 09/21/17 16:45 Aspirin (Children'S Aspirin) 81 mg DAILY 09/21/17 09:00 09/21/17 09:03 81 MG Atorvastatin Calcium (Lipitor) 40 mg QODAY 09/23/17 09:00 Azithromycin (Zithromax) 250 mg DAILY 09/22/17 09:00 Ceftriaxone Sodium 1 gm/ Sodium Chloride 50 ml @ 100 mls/hr Q24H 09/21/17 16:45 UNV Ceftriaxone Sodium (Rocephin Im) 1 gm Q24H 09/21/17 21:00 09/21/17 21:00 DC Ceftriaxone Sodium (Rocephin) 1 gm Q24H 09/21/17 17:00 09/21/17 17:28 1 GM Enoxaparin Sodium (Lovenox 30mg Syringe) 30 mg Q24H 09/21/17 21:00 09/21/17 21:00 DC Enoxaparin Sodium (Lovenox 40mg Syringe) 40 mg Q24H 09/21/17 21:00 09/21/17 21:00 DC Furosemide (Lasix) 40 mg DAILY06 09/21/17 06:00 09/22/17 06:09 40 MG Lactobacillus Rhamnosus (Culturelle) 1 cap BID 09/21/17 21:00 09/21/17 20:30 1 CAP Magnesium Oxide (Magnesium Oxide) 400 mg BID 09/21/17 21:00 09/21/17 20:31 400 MG Metoprolol Tartrate (Lopressor) 50 mg BID 09/21/17 21:00 09/21/17 20:31 50 MG Montelukast Sodium (Singulair) 10 mg DAILY 09/22/17 09:00 Non-Formulary Medication (Albuterol Sulfate (Albuterol Sulfate Neb Soln)) 0.63 mg PRN TID PRN 09/21/17 16:45 UNV Non-Formulary Medication (Nebivolol Hcl (Bystolic)) 1 tab DAILY 09/22/17 09:00 UNV Potassium Chloride (Klor-Con) 20 meq BID 09/21/17 21:00 09/21/17 20:32 20 MEQ Sertraline HCl (Zoloft) 50 mg DAILY 09/22/17 09:00 Sodium Chloride 1,000 ml @ 50 mls/hr Q20H 09/21/17 16:30 09/21/17 16:39 DC Sucralfate (Carafate) 1 gm BID 09/21/17 21:00 09/21/17 20:31 1 GM Warfarin Sodium (Coumadin Per Physician) 1 each PRN DAILY PRN 09/21/17 16:45 Warfarin Sodium (Coumadin) 3 mg DAILY16 09/21/17 17:00 09/21/17 17:28 3 MG PLAN Plan Dyspnea: appears to be related to the basal pneumonia. She had an elevated white count which is coming down with antibiotics. Sick sinus syndrome: She is status post pacemaker implant in 2012 pacemaker check today was normal. Essential hypertension: Her blood pressure is under good control, although it was high 2 days ago and as high as 199/63. She is on Toprol . hypercholesterolemia: She is on a statin. 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 The lower extremity duplex and VQ scan was read we will need to discuss as an outpatient about possibly changing her to low dose DOAC The above was dictated using a voice recognition software in a noisy environment and as such may contain exchange clerk errors ELOY ALONZO MD Sep 22, 2017 09:49
[2017-09-22] MEDS: LACTOBACILLUS RHAMNOSUS GG 1 CAPSULE. PO SCH (09:56)
[2017-09-22] MEDS: ASPIRIN 81 MG TAB.CHEW PO SCH (09:56)
[2017-09-22] MEDS: POTASSIUM CHLORIDE 20 MEQ TABLET.ER. PO SCH (09:57)
[2017-09-22] MEDS: SUCRALFATE 1 GM TABLET. PO SCH (09:58)
[2017-09-22] MEDS: MAGNESIUM OXIDE 400 MG TABLET PO SCH (09:58)
[2017-09-22] MEDS: METOPROLOL TART IMMED RELEASE 50 MG TABLET PO SCH (09:58)
[2017-09-22 11:17] VITALS: BP 126/72
[2017-09-23] MEDS ORDERED: ATORVASTATIN CALCIUM 20 MG TABLET PO SCH (09:00)
== END 2017-09-22 13:00 | disposition left against medical advice (07) | DRG 871 ==
LOC: ER 17:10 → 1 SOUTH 20:30
PROVIDERS: ADMIT Internal Medicine; ATTEND Internal Medicine
DX: A41.9 Sepsis, unspecified organism (principal); J18.9 Pneumonia, unspecified organism; N39.0 Urinary tract infection, site not specified; I13.0 Hypertensive heart and chronic kidney disease with heart failure and stage 1 through stage 4 chronic kidney disease, or unspecified chronic kidney disease; J44.0 Chronic obstructive pulmonary disease with (acute) lower respiratory infection; E78.00 Pure hypercholesterolemia, unspecified; I27.20 Pulmonary hypertension, unspecified; I25.10 Atherosclerotic heart disease of native coronary artery without angina pectoris; I49.5 Sick sinus syndrome; E78.5 Hyperlipidemia, unspecified; G47.33 Obstructive sleep apnea (adult) (pediatric); I50.9 Heart failure, unspecified; K21.9 Gastro-esophageal reflux disease without esophagitis; M40.209 Unspecified kyphosis, site unspecified; R79.1 Abnormal coagulation profile; M19.90 Unspecified osteoarthritis, unspecified site; N18.2 Chronic kidney disease, stage 2 (mild); I08.1 Rheumatic disorders of both mitral and tricuspid valves; I49.3 Ventricular premature depolarization; Z95.0 Presence of cardiac pacemaker; Z90.710 Acquired absence of both cervix and uterus; Z90.49 Acquired absence of other specified parts of digestive tract; Z90.89 Acquired absence of other organs; Z87.891 Personal history of nicotine dependence; Z86.718 Personal history of other venous thrombosis and embolism; Z83.3 Family history of diabetes mellitus; Z82.49 Family history of ischemic heart disease and other diseases of the circulatory system; Z88.8 Allergy status to other drugs, medicaments and biological substances; Z79.01 Long term (current) use of anticoagulants; Z90.722 Acquired absence of ovaries, bilateral; Z79.899 Other long term (current) drug therapy
CPT/HCPCS: 36415; 71046; 78582; 80048; 80053; 80076; 80307; 81001; 82553; 82947; 83690; 83735; 83880; 84443; 84484; 85007; 85025; 85027; 85379; 85610; 85730; 87086; 93005; 93970; 96365; 96372; 96374; A9540; A9558; G0238; J0456; J0696; J1650; 99285-25; G0479; J7030

== ENCOUNTER 2017-09-24 12:08 | Emergency (ER) | payer MEDICARE, OTHER ==
[~2017-09-24 12:08] MED LIST changes: +CHLO25TA PO; +MAGN400T3 PO; +NEBI10TA3 PO; +SERT50TA PO; +VALS320T2 PO; +WARF2TAB96 PO
--- NOTE | 2017-09-24 12:22 | EKG ---
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
[2017-09-24] MEDS ORDERED: ASPIRIN 81 MG TAB.CHEW PO ONE (12:30)
--- NOTE | 2017-09-24 12:34 | PHYS DOC ---
Past History Past Medical History: Arthritis, Asthma, DVT, Hypertension, [place], Other Additional Past Medical Histor: history of DVT Past Surgical History: Appendectomy, Hysterectomy, Pacemaker, Tonsillectomy Smoking: Non-smoker, Quit Greater Than 1 Year Alcohol Use: None Drug Use: None Adult General Chief Complaint Chief Complaint: CHEST PAIN HPI HPI 87-year-old female patient was admitted on September 21 with complaining of chest pain and sign AMA 2 days ago and presented to ER with complaining of chest pain and dizziness that started since yesterday the same as her previous episodes of chest pain. Patient complaining of intermittent episodes of substernal pressure pain without radiation that getting worse with taking deep breaths. Denies abdominal pain, nausea and vomiting, diarrhea and constipation, fever and chills , focal neuro deficit, urinary symptom. Patient complaining of intermittent episodes of dizziness without radiation to episodes of chest pain. Patient is a poor historian. Review of Systems Review of Systems Constitutional: Denies fever or chills [] Eyes: Denies change in visual acuity, redness, or eye pain [] HENT: Denies nasal congestion or sore throat [] Respiratory: Denies cough or shortness of breath [] Cardiovascular: No additional information not addressed in HPI [] GI: Denies abdominal pain, nausea, vomiting, bloody stools or diarrhea [] : Denies dysuria or hematuria [] Musculoskeletal: Denies back pain or joint pain [] Integument: Denies rash or skin lesions [] Neurologic: Reports dizziness, denies headache, focal weakness or sensory changes [] Endocrine: Denies polyuria or polydipsia [] All other systems were reviewed and found to be within normal limits, except as documented in this note. Current Medications Current Medications Current Medications Medications (Trade) Dose Ordered Sig/[facility] Start Time Stop Time Status Last Admin Dose Admin Aspirin (Children'S Aspirin) 324 mg 1X ONCE 09/24/17 12:30 09/24/17 12:31 DC Allergies Allergies Allergies Coded Allergies Type Severity Reaction Last Updated Verified celecoxib Allergy Intermediate 04/28/14 Yes Physical Exam Physical Exam Constitutional: Well nourished, no acute distress, non-toxic appearance. [] HENT: Normocephalic, atraumatic Eyes: PERRLA, EOMI, conjunctiva normal, no discharge. [] Neck: Normal range of motion, no tenderness, supple, no stridor. [] Cardiovascular:Heart rate regular rhythm, no murmur [] Lungs & Thorax: Bilateral breath sounds clear to auscultation, reproducible substernal pain [] Abdomen: Bowel sounds normal, soft, no tenderness, no masses, no pulsatile masses. [] Skin: Warm, dry, no erythema, no rash. [] Back: No tenderness, no CVA tenderness. [] Extremities: No tenderness, no cyanosis, no clubbing, ROM intact, no edema. [] Neurologic: Alert and oriented X 3, normal motor function, normal sensory function, no focal deficits noted. [] Psychologic: Anxious, mood normal. [] EKG EKG EKG interpreted by me. EKG at 1216 showed marked artifact with sinus rhythm without tachycardia, no acute ST and T-wave abnormalities, nonspecific intraventricular block, left axis deviation[] Radiology/Procedures Radiology/Procedures [][address] [address] IMAGING REPORT Signed PATIENT: SUKHWINDER NAVAS ACCOUNT: [id number] : 1930 LOCATION: ER AGE: 87 SEX: F EXAM STATUS: REG ER ORD. PHYSICIAN: TATUM BARON MD REASON: chest pain PROCEDURE: PORTABLE CHEST 1V Portable chest, 09/24/2017: HISTORY: Chest pain Comparison is made to a study from 09/20/2017. A left-sided transvenous pacemaker remains in place with 2 leads extending into the right heart. The left ventricle is mildly prominent. The pulmonary vascularity is normal. Minimal left lateral basilar opacities are unchanged, compatible with minimal atelectasis or scarring. No new pulmonary abnormality is seen. There is no evidence of pleural fluid. IMPRESSION: No significant change since 09/20/2017. Electronically signed by: Marino Escudero MD (09/24/2017 12:49 PM) [facility] DICTATED AND SIGNED BY: MARINO ESCUDERO MD DATE: 09/24/17 1294 CC: TATUM BARON MD; RAJ BENITEZ ~ Course & Med Decision Making Course & Med Decision Making Pertinent Labs and Imaging studies reviewed. (See chart for details) Evaluation of patient in ER showed 87-year-old female patient recent hospitalization for chest pain presented to ER with complaining of dizziness and chest pain. Patient did not have chest pain in ER. Patient had unremarkable cardiac enzymes and chest x-ray. Patient had negative d-dimer in previous hospitalization. Lipase was markedly elevated but patient denied abdominal pain and nausea and vomiting and history of pancreatitis. I contacted Dr. Magana at 1402 who agreed with hospitalization of patient but patient stated her has surgery today and wanted to go home. Patient instructed to take liquids diet and follow-up with her primary care physician in one or 2 days. Dragon Disclaimer Dragon Disclaimer This electronic medical record was generated, in whole or in part, using a voice recognition dictation system. Departure Departure: Impression: Primary Impression: Pancreatitis Additional Impressions: Chest pain with high risk for cardiac etiology Dizziness Disposition: 01 HOME, SELF-CARE Condition: IMPROVED Referrals: RAJ BENITEZ (PCP) Patient Instructions: Acute Pancreatitis, [id number] Additional Instructions: Drink plenty of liquids Follow-up with your primary care physician in 2-3 days Return to ER if not getting better Problem Qualifiers TATUM BARON MD Sep 24, 2017 12:34
[2017-09-24 12:46] LABS: BASO % 0 % (0-3); EOS % 0 % (0-3); HEMATOCRIT 37.5 % (36.0-47.0); HEMOGLOBIN 12.6 g/dL (12.0-15.5); LYMPH # 1.2 x10^3/uL (1.0-4.8); LYMPH % 10 % (24-48); MEAN CORPUSCULAR HEMOGLOBIN 30 pg (25-35); MEAN CORPUSCULAR HGB CONC 34 g/dL (31-37); MEAN CORPUSCULAR VOLUME 90 fL (79-100); MONO # 0.6 x10^3/uL (0.0-1.1); MONO % 5 % (0-9); NEUT # 10.4 x10^3uL (1.8-7.7); NEUT % 85 % (31-73); PLATELET COUNT 385 x10^3/uL (140-400); RED BLOOD COUNT 4.16 x10^6/uL (3.50-5.40); RED CELL DISTRIBUTION WIDTH 14.3 % (11.5-14.5); WHITE BLOOD COUNT 12.3 x10^3/uL (4.0-11.0)
--- NOTE | 2017-09-24 12:53 | RAD ---
Portable chest, 09/24/2017: HISTORY: Chest pain Comparison is made to a study from 09/20/2017. A left-sided transvenous pacemaker remains in place with 2 leads extending into the right heart. The left ventricle is mildly prominent. The pulmonary vascularity is normal. Minimal left lateral basilar opacities are unchanged, compatible with minimal atelectasis or scarring. No new pulmonary abnormality is seen. There is no evidence of pleural fluid. IMPRESSION: No significant change since 09/20/2017. Electronically signed by: Marino Escudero MD (09/24/2017 12:49 PM) [facility]
[2017-09-24 13:15] LABS: ALBUMIN 3.5 g/dL (3.4-5.0); ALBUMIN/GLOBULIN RATIO 0.8 (1.0-1.7); CALCIUM 9.3 mg/dL (8.5-10.1); CREATININE 1.7 mg/dL (0.6-1.0); GFR 28.6; MAGNESIUM 1.8 mg/dL (1.8-2.4); POTASSIUM 4.2 mmol/L (3.5-5.1); TOTAL BILIRUBIN 0.4 mg/dL (0.2-1.0); TOTAL PROTEIN 7.8 g/dL (6.4-8.2)
[2017-09-24 13:20] LABS: % LYMPHS 13 % (24-48); % METAS 1 % (0-0); % MONOS 3 % (0-10); % SEGS 82 % (35-66)
[2017-09-24 13:21] LABS: PLATELET CLUMP PRESENT; PLT ESTIMATE ADEQUATE (ADEQUATE)
[2017-09-24 14:15] VITALS: BP 134/64
== END 2017-09-24 14:17 | disposition home or self-care (01) ==
LOC: ER 12:08
DX: K85.90 Acute pancreatitis without necrosis or infection, unspecified (principal); R07.2 Precordial pain; R42 Dizziness and giddiness; M19.90 Unspecified osteoarthritis, unspecified site; J45.909 Unspecified asthma, uncomplicated; I10 Essential (primary) hypertension; I25.2 Old myocardial infarction; Z86.718 Personal history of other venous thrombosis and embolism; Z95.0 Presence of cardiac pacemaker; Z87.891 Personal history of nicotine dependence; Z88.1 Allergy status to other antibiotic agents
CPT/HCPCS: 36415; 71045; 80053; 82553; 83690; 83735; 83880; 84484; 85007; 85025; 93005; 99285-25

== ENCOUNTER 2017-09-27 15:08 | Inpatient (IN) | payer MEDICARE, OTHER ==
[~2017-09-27] VITALS: Ht 144.8 cm; Wt 50.4 kg
--- NOTE | 2017-09-27 15:17 | PHYS DOC ---
Past History Past Medical History: Arthritis, Asthma, DVT, Hypertension, [place], Other Additional Past Medical Histor: history of DVT Past Surgical History: Appendectomy, Hysterectomy, Pacemaker, Tonsillectomy Smoking: Non-smoker, Quit Greater Than 1 Year Alcohol Use: None Drug Use: None Adult General Chief Complaint Chief Complaint: CHEST PAIN HPI HPI Patient is a 87-year-old female brought in by EMS for evaluation of chest pain in the substernal region. She states it began a few hours ago. EMS gave the patient a full strength aspirin in route to the hospital. The patient reports a history of a pacemaker and "multiple heart attacks" but denies ever having a stent placed. She is alert and oriented 4, calm, appears to be no distress. She states that her pain has completely resolved and she is not having any complaints at this time. She does feel slightly lightheaded. She denies fevers or chills, nausea or vomiting, diaphoresis, dizziness or syncope, back pain, abdominal pain, or shortness of breath. Review of Systems Review of Systems Constitutional: Denies fever or chills [] Eyes: Denies change in visual acuity, redness, or eye pain [] HENT: Denies nasal congestion or sore throat [] Respiratory: Denies cough or shortness of breath [] Cardiovascular: No additional information not addressed in HPI [] +cp GI: Denies abdominal pain, nausea, vomiting, bloody stools or diarrhea [] : Denies dysuria or hematuria [] Musculoskeletal: Denies back pain or joint pain [] Integument: Denies rash or skin lesions [] Neurologic: Denies headache, focal weakness or sensory changes [] +lightheaded Endocrine: Denies polyuria or polydipsia [] All other systems were reviewed and found to be within normal limits, except as documented in this note. Allergies Allergies Allergies Coded Allergies Type Severity Reaction Last Updated Verified celecoxib Allergy Intermediate 04/28/14 Yes Physical Exam Physical Exam Constitutional: Well developed, well nourished, no acute distress, non-toxic appearance. [] HENT: Normocephalic, atraumatic, bilateral external ears normal, oropharynx moist, no oral exudates, nose normal. [] Eyes: PERRLA, EOMI, conjunctiva normal, no discharge. [] Neck: Normal range of motion, no tenderness, supple, no stridor. [] Cardiovascular:Heart rate regular rhythm, no murmur [] left chest wall pacemaker noted Lungs & Thorax: Bilateral breath sounds clear to auscultation [] Abdomen: Bowel sounds normal, soft, no tenderness, no masses, no pulsatile masses. [] Skin: Warm, dry, no erythema, no rash. [] Back: No tenderness, no CVA tenderness. [] Extremities: No tenderness, no cyanosis, no clubbing, ROM intact, no edema. [] Neurologic: Alert and oriented X 3, normal motor function, normal sensory function, no focal deficits noted. [] Psychologic: Affect normal, judgement normal, mood normal. [] Current Patient Data Vital Signs Laboratory Tests Test 09/27/17 15:27 White Blood Count 12.0 x10^3/uL Red Blood Count 3.86 x10^6/uL Hemoglobin 11.7 g/dL Hematocrit 34.6 % Mean Corpuscular Volume 90 fL Mean Corpuscular Hemoglobin 30 pg Mean Corpuscular Hemoglobin Concent 34 g/dL Red Cell Distribution Width 14.0 % Platelet Count 361 x10^3/uL Neutrophils (%) (Auto) 80 % Lymphocytes (%) (Auto) 12 % Monocytes (%) (Auto) 6 % Eosinophils (%) (Auto) 1 % Basophils (%) (Auto) 0 % Neutrophils # (Auto) 9.7 x10^3uL Lymphocytes # (Auto) 1.4 x10^3/uL Monocytes # (Auto) 0.8 x10^3/uL Eosinophils # (Auto) 0.1 x10^3/uL Basophils # (Auto) 0.0 x10^3/uL Sodium Level 134 mmol/L Potassium Level 3.4 mmol/L Chloride Level 92 mmol/L Carbon Dioxide Level 36 mmol/L Anion Gap 6 Blood Urea Nitrogen 28 mg/dL Creatinine 1.3 mg/dL Estimated GFR (Cockcroft-Gault) 38.9 BUN/Creatinine Ratio 22 Glucose Level 116 mg/dL Calcium Level 9.2 mg/dL Magnesium Level 2.2 mg/dL Total Bilirubin 0.5 mg/dL Aspartate Amino Transf (AST/SGOT) 20 U/L Alanine Aminotransferase (ALT/SGPT) 24 U/L Alkaline Phosphatase 78 U/L Creatine Kinase 21 U/L Creatine Kinase MB (Mass) < 0.5 ng/mL Creatine Kinase MB Relative Index 2.4 % Troponin I Quantitative < 0.017 ng/mL GL-Yco-A-Type Natriuretic Peptide 682 pg/mL Total Protein 7.1 g/dL Albumin 3.3 g/dL Albumin/Globulin Ratio 0.9 Lab Results Vital Signs Date Time Temp Pulse Resp B/P (MAP) Pulse Ox O2 Delivery O2 Flow Rate FiO2 09/27/17 15:40 60 20 141/56 (84) 97 Nasal Cannula 2.0 09/27/17 15:15 98.6 EKG EKG Left bundle branch block, paced rhythm, heart rate of 60, no acute ischemic findings noted, no STEMI, reviewed and interpreted by myself Radiology/Procedures Radiology/[place] [address] IMAGING REPORT Signed PATIENT: SUKHWINDER NAVAS ACCOUNT: [id number] : 1930 LOCATION: ER AGE: 87 SEX: F EXAM STATUS: PRE ER ORD. PHYSICIAN: ABRIL OCHOA DO REASON: cp, sob PROCEDURE: PORTABLE CHEST 1V EXAM: CHEST 1 VIEW History: Chest pain COMPARISON: 09/24/2017 TECHNIQUE: Single portable radiograph of the chest FINDINGS: The cardiac silhouette is unremarkable. Left-sided cardiac pacer in place. There is no acute infiltrate or visualized pneumothorax. Minimal atelectasis or scarring in the bibasilar lungs similar to prior exam. IMPRESSION: No acute cardiopulmonary findings. Electronically signed by: Cristi Marks MD (09/27/2017 3:33 PM) [id number] DICTATED AND SIGNED BY: CRISTI MARKS MD DATE: 09/27/17 1531 CC: ABRIL OCHOA DO; RAJ BENITEZ ~ Course & Med Decision Making Course & Med Decision Making Pertinent Labs and Imaging studies reviewed. (See chart for details) @1630 - Patient updated on lab and imaging results. She is agreeable to admission. Hospitalist hernán and Dr. Magana accepts the telemetry admission. Dragon Disclaimer Dragon Disclaimer This electronic medical record was generated, in whole or in part, using a voice recognition dictation system. Departure Departure: Impression: Primary Impression: Chest pain with high risk for cardiac etiology Disposition: ADMITTED INPATIENT Admitting Physician: Robe Magana Referrals: RAJ BENITEZ (PCP) ABRIL OCHOA DO Sep 27, 2017 15:17
--- NOTE | 2017-09-27 15:19 | EKG ---
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
--- NOTE | 2017-09-27 15:37 | RAD ---
EXAM: CHEST 1 VIEW History: Chest pain COMPARISON: 09/24/2017 TECHNIQUE: Single portable radiograph of the chest FINDINGS: The cardiac silhouette is unremarkable. Left-sided cardiac pacer in place. There is no acute infiltrate or visualized pneumothorax. Minimal atelectasis or scarring in the bibasilar lungs similar to prior exam. IMPRESSION: No acute cardiopulmonary findings. Electronically signed by: Cristi Marks MD (09/27/2017 3:33 PM) [id number]
[2017-09-27 15:43] LABS: BASO % 0 % (0-3); EOS # 0.1 x10^3/uL (0.0-0.7); EOS % 1 % (0-3); HEMATOCRIT 34.6 % (36.0-47.0); HEMOGLOBIN 11.7 g/dL (12.0-15.5); LYMPH # 1.4 x10^3/uL (1.0-4.8); LYMPH % 12 % (24-48); MEAN CORPUSCULAR HEMOGLOBIN 30 pg (25-35); MEAN CORPUSCULAR HGB CONC 34 g/dL (31-37); MEAN CORPUSCULAR VOLUME 90 fL (79-100); MONO # 0.8 x10^3/uL (0.0-1.1); MONO % 6 % (0-9); NEUT # 9.7 x10^3uL (1.8-7.7); NEUT % 80 % (31-73); PLATELET COUNT 361 x10^3/uL (140-400); RED BLOOD COUNT 3.86 x10^6/uL (3.50-5.40)
[2017-09-27 16:15] LABS: ALBUMIN 3.3 g/dL (3.4-5.0); ALBUMIN/GLOBULIN RATIO 0.9 (1.0-1.7); ALK PHOS 78 U/L (46-116); ALT (SGPT) 24 U/L (14-59); ANION GAP 6 (6-14); AST (SGOT) 20 U/L (15-37); BLOOD UREA NITROGEN 28 mg/dL (7-20); BUN/CREATININE RATIO 22 (6-20); CALCIUM 9.2 mg/dL (8.5-10.1); CARBON DIOXIDE 36 mmol/L (21-32); CHLORIDE 92 mmol/L (98-107); CREATININE 1.3 mg/dL (0.6-1.0); GFR 38.9; GLUCOSE 116 mg/dL (70-99); MAGNESIUM 2.2 mg/dL (1.8-2.4); POTASSIUM 3.4 mmol/L (3.5-5.1); SODIUM 134 mmol/L (136-145); TOTAL BILIRUBIN 0.5 mg/dL (0.2-1.0); TOTAL PROTEIN 7.1 g/dL (6.4-8.2)
[2017-09-27 17:08] VITALS: BP 129/62
[2017-09-27] MEDS ORDERED: WARF3TAB54 PO (17:31)
--- NOTE | 2017-09-27 17:58 | NUR ---
The patient, SUKHWINDER NAVAS, 87 y/o, F admitted by JAMES SALMERON MD, was given written information regarding hospital policies, unit procedures and contact persons. Valuables were checked and belongings left in room. Patient arrived to room 124, alert and oriented x3 with mild confusion. States that she is having chest pressure but no pain at this time. PT/OT and case management ordered at this time. Consult to [facility]. Patient able to verbalize POC, will continue to monitor.
[2017-09-27] MEDS ORDERED: POTASSIUM CHLORIDE 20 MEQ TABLET.ER. PO ONE (18:15)
[2017-09-27] MEDS ORDERED: WARFARIN 5 MG TABLET. PO ONE (19:00)
--- NOTE | 2017-09-27 19:09 | NUR ---
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 Target Range for this patient is: 2 -3 P: Warfarin dose: 5 mg Now Bridge Therapy: None Next INR due 09/28/17 Pharmacy anticoagulation service will continue to follow. NESSA BREAUX, 09/27/17 2938
[2017-09-27 19:15] VITALS: BP 108/51
[2017-09-27] MEDS: MAGNESIUM OXIDE 400 MG TABLET PO SCH (20:08)
[2017-09-27] MEDS: POTASSIUM CHLORIDE 20 MEQ TABLET.ER. PO SCH (20:08)
[2017-09-27] MEDS: METOPROLOL TART IMMED RELEASE 50 MG TABLET PO SCH (20:09)
[2017-09-27] MEDS: LOSARTAN 50 MG TABLET. PO SCH (20:09)
[2017-09-27 20:49] LABS: BACTERIA,URINE 0 /HPF (0-FEW); BILIRUBIN,URINE NEG (NEG); CLARITY,URINE HAZY; COLOR,URINE YELLOW; GLUCOSE,URINE NEG (NEG); NITRITE,URINE NEG (NEG); SQUAMOUS EPITHELIAL CELL,UR MANY /LPF; UROBILINOGEN,URINE 0.2 mg/dL (0.2 mg/dL)
[2017-09-27 20:50] LABS: HYALINE CASTS, URINE FEW /HPF
[2017-09-27 23:06] VITALS: BP 116/64
[2017-09-28 05:03] VITALS: BP 135/67
[2017-09-28 05:49] LABS: BASO % 0 % (0-3); EOS # 0.2 x10^3/uL (0.0-0.7); EOS % 2 % (0-3); HEMATOCRIT 31.9 % (36.0-47.0); HEMOGLOBIN 10.8 g/dL (12.0-15.5); LYMPH # 1.7 x10^3/uL (1.0-4.8); LYMPH % 17 % (24-48); MEAN CORPUSCULAR HEMOGLOBIN 31 pg (25-35); MEAN CORPUSCULAR HGB CONC 34 g/dL (31-37); MEAN CORPUSCULAR VOLUME 90 fL (79-100); MONO # 0.7 x10^3/uL (0.0-1.1); MONO % 7 % (0-9); NEUT # 7.3 x10^3uL (1.8-7.7); NEUT % 74 % (31-73); PLATELET COUNT 312 x10^3/uL (140-400); RED BLOOD COUNT 3.54 x10^6/uL (3.50-5.40); RED CELL DISTRIBUTION WIDTH 14.5 % (11.5-14.5); WHITE BLOOD COUNT 9.9 x10^3/uL (4.0-11.0)
[2017-09-28 05:56] LABS: ALBUMIN 2.9 g/dL (3.4-5.0); ALBUMIN/GLOBULIN RATIO 0.9 (1.0-1.7); CREATININE 1.2 mg/dL (0.6-1.0); GFR 42.7; POTASSIUM 3.8 mmol/L (3.5-5.1); TOTAL BILIRUBIN 0.5 mg/dL (0.2-1.0); TOTAL PROTEIN 6.3 g/dL (6.4-8.2)
[2017-09-28] MEDS: CHLORTHALIDONE 25 MG TABLET PO SCH (08:21)
[2017-09-28] MEDS: MAGNESIUM OXIDE 400 MG TABLET PO SCH ×2 (08:21→20:05)
[2017-09-28] MEDS: SERTRALINE 50 MG TABLET. PO SCH (08:21)
[2017-09-28] MEDS: MONTELUKAST 10 MG TABLET. PO SCH (08:21)
[2017-09-28] MEDS: METOPROLOL TART IMMED RELEASE 50 MG TABLET PO SCH ×2 (08:22→20:05)
[2017-09-28] MEDS: POTASSIUM CHLORIDE 20 MEQ TABLET.ER. PO SCH ×2 (08:22→20:05)
[2017-09-28 10:38] VITALS: BP 96/56
[2017-09-28] MEDS ORDERED: IOHEXOL 300 MG/ML 75 ML VIAL. IV ONE (11:00)
--- NOTE | 2017-09-28 12:18 | HP ---
ADMIT DATE: 09/27/2017 HISTORY OF PRESENT ILLNESS: The patient is an 87-year-old female patient who yet again came to the Emergency Room complaining of chest pain that is substernal in nature. States it has begun a few hours before arrival, the emergency medical personnel gave her full strength aspirin en route to the hospital. The patient reports a history of a pacemaker and multiple heart attacks but denies she ever having a stent placed. She was alert and oriented, on arrival, she was in no apparent distress. By the time she arrived here, her pain has completely resolved, did not have any complaint by the time she arrived. She has had an EKG, it showed that she has a paced rhythm with left bundle branch block at a rate of 60 with no acute ischemic finding, no ST segment elevation myocardial infarction. Her first set of cardiac enzyme showed that her troponin was less than 0.017 and the patient was admitted to do 2 more sets of cardiac enzyme and to rule out myocardial infarction. Her INR was also found to be subtherapeutic at 11.7 with the prothrombin time at 11.7, INR 1.1, apparently she said that she stopped her Coumadin on her own. PAST MEDICAL HISTORY: Significant for coronary artery disease, hypertension, hyperlipidemia, sick sinus syndrome, status post permanent pacemaker, gastroesophageal reflux disease, chronic kidney disease, asthma, and deep vein thrombosis. PAST SURGICAL HISTORY: Significant for vein stripping, total abdominal hysterectomy, bilateral salpingo-oophorectomy, appendectomy, tonsillectomy, permanent pacemaker implantation and colonoscopy. ALLERGIES: SHE IS ALLERGIC TO CELEBREX. MEDICATIONS: She is currently on following medications, Coumadin 3 mg once a day, atorvastatin 40 mg at bedtime, nebivolol (Bystolic) 10 mg daily, valsartan 320 mg daily, sertraline 50 mg daily, potassium chloride 20 mEq twice a day, chlorthalidone 25 mg p.o. daily, montelukast 10 mg at bedtime, magnesium oxide 400 mg twice a day. REVIEW OF SYSTEMS: The patient denied any blurring of vision, cataract, glaucoma or macular degeneration. Denied any earache, tinnitus or sensorineural deafness. Denied any nosebleeds, stuffy nose or postnasal drip. Denied any sore throat, sore tongue, toothache, hoarseness of voice or difficulty swallowing. Denied any nausea, vomiting, diarrhea or constipation. Denied any dysuria, frequency, hematuria. PHYSICAL EXAMINATION: GENERAL: On arrival to the Emergency Room, she looked well and was clearly in no apparent respiratory distress. She was slightly pale, but no jaundice, cyanosis, or thyromegaly. No jugular venous distension. No limb edema. VITAL SIGNS: Her heart rate was 70, blood pressure was 141/56, temperature was 98.6, respiratory rate 20, and oxygen saturation was 97% on 2 liters of oxygen. HEAD, EYES, EARS, NOSE AND THROAT: Showed normocephalic, atraumatic. NECK: Supple. HEART: Showed normal first and second sounds. No gallop, rub or murmur. CHEST: Clear to auscultation. No crepitation or rhonchi. ABDOMEN: Distended, soft, nontender. NEUROLOGIC: She is awake, alert, responding at times appropriately. All her cranial nerves are intact. EXTREMITIES: She moves extremities without difficulty. She ambulates without assistance or assistive devices. LABORATORY DATA: Her lab work showed a white cell count 12,000, hemoglobin 11.7, hematocrit 34.6, MCV 90 and platelet count of 361,000 with normal differential. Her prothrombin time was 11.7, INR 1.1 and her chemistry showed a serum sodium 134, potassium 3.4, chloride 92, bicarbonate 36, ____ anion gap of 6, BUN 28, creatinine 1.3, estimated GFR was 39 mL per minute. Her glucose 116, calcium was 9.2, magnesium 2.2. Total bilirubin, AST, ALT, alkaline phosphatase were normal. Her beta natriuretic peptide was 682. Total protein was 7.1, albumin was 3.3. ASSESSMENT AND PLAN: The patient was admitted to do 2 more sets of cardiac enzyme and decide on further management accordingly. She has had a VQ scan done recently about 6 days ago, which was interpreted finding of COPD and an indeterminate VQ scan. Consider CT chest angio. She has had Doppler ultrasound at that time, which were negative for deep vein thrombosis. JAMES SALMERON MD DR: YESY/dario JOB#: [id number] / [id number]
--- NOTE | 2017-09-28 12:36 | RAD ---
Procedure: CT angiogram chest. CT abdomen and pelvis with contrast. Indication: Chest pain, elevated d-dimer. Elevated liver enzymes. Intermediate probability VQ lung scan. Technique: CT angiogram chest includes axial images and routine and maximum intensity projection reformatted images. CT abdomen and pelvis includes axial images and coronal and sagittal reformatted images. 60 mL of Omnipaque 300 intravenously was administered without complication. VQ scan from September 21 was reviewed in comparison. There is a CT chest from September 03, 2013. There is also a CT of the abdomen and pelvis from July 18, 2014. One or more of the following individualized dose reduction techniques were utilized for this examination: 1. Automated exposure control 2. Adjustment of the mA and/or kV according to patient size 3. Use of iterative reconstruction technique Findings: Chest: Contrast bolus is satisfactory. There is no filling defect to suggest pulmonary embolism. There is atheromatous disease in the thoracic aorta without aneurysm. Heart is not enlarged. Coronary artery calcifications are noted. There is no hilar or mediastinal adenopathy. There is no pleural effusion. Central airways are patent. 4 mm left upper lobe pulmonary nodule on image 27 is stable back to 2013, does not require further workup. There is nodular opacity in the left lower lobe and to a lesser degree left upper lobe, some of which has tree-in-bud distribution. Additional bandlike opacities of presumed atelectasis or scarring are noted bilaterally, greater on the left. There are degenerative changes in the spine. Abdomen: Liver is without discrete lesion. Gallbladder is absent. Spleen is not enlarged. Pancreas and adrenals are unremarkable. Kidneys are symmetrically perfused. There is atheromatous disease in the abdominal aorta without aneurysm. There is no dilated small bowel loop or mural thickening. There are diverticula in the colon, mostly descending and sigmoid colon. There is no definite inflammatory stranding or mural thickening to suggest an acute diverticulitis. Pelvis: Bladder is decompressed. There are calcified phleboliths. Uterus is presumed absent or atrophic. There are degenerative changes in the spine with mild levocurvature centered around T12. IMPRESSION: Chest: 1. Negative for pulmonary embolism. 2. Areas of nodularity with tree-in-bud distribution on the left, involves both the upper and lower lobes, nonspecific but frequently infectious in etiology. Atypical infection can be considered. 3 month follow-up would be of benefit. 3. Coronary artery disease. 4. Left upper lobe pulmonary nodule is stable. Abdomen/pelvis: 1. Diverticulosis in the colon without findings of diverticulitis. 2. Cholecystectomy. Electronically signed by: Preethi Faith MD (09/28/2017 12:29 PM) [id number] DICTATED AND SIGNED BY: PREETHI FAITH MD DATE: 09/28/17 1210 CC: JAMES SALMERON MD; RAJ BENITEZ ~ MTDD
[2017-09-28] MEDS: IV NORMAL SALINE 1,000ML 1,000 ML IV SCH ×2 (13:00→20:06)
[2017-09-28] MEDS ORDERED: WARFARIN 5 MG TABLET. PO ONE (16:00)
[2017-09-28] MEDS ORDERED: WARFARIN 5 MG TABLET. PO SCH (16:00)
[2017-09-28 16:30] VITALS: BP 116/65
[2017-09-28 19:17] VITALS: BP 107/55
[2017-09-28] MEDS: LOSARTAN 50 MG TABLET. PO SCH (20:05)
[2017-09-28 22:16] VITALS: BP 136/68
[2017-09-29] MEDS: IV NORMAL SALINE 1,000ML 1,000 ML IV SCH (00:10)
[2017-09-29 06:16] VITALS: BP 124/63
[2017-09-29 06:23] LABS: HEMATOCRIT 34.3 % (36.0-47.0); HEMOGLOBIN 11.3 g/dL (12.0-15.5); RED BLOOD COUNT 3.78 x10^6/uL (3.50-5.40); RED CELL DISTRIBUTION WIDTH 14.4 % (11.5-14.5); WHITE BLOOD COUNT 12.4 x10^3/uL (4.0-11.0)
[2017-09-29 06:34] LABS: ALBUMIN/GLOBULIN RATIO 0.8 (1.0-1.7); CREATININE 1.1 mg/dL (0.6-1.0); GFR 47.2; TOTAL BILIRUBIN 0.4 mg/dL (0.2-1.0); TOTAL PROTEIN 6.6 g/dL (6.4-8.2)
--- NOTE | 2017-09-29 07:27 | NUR ---
Pharmacy Warfarin Dosing Note S:Pharmacy consulted to assist with anticoagulation therapy started with target INR: 2 -3 O:SUKHWINDER NAVAS is a 87 year old F with DVT/PE LABS: Last INR: 1.4 Last HGB: 11.3 Last HCT: 34.3 Last PLT: 327 Last dose of 5 mg given on 09/28/17 at 1335 Previous Regimen: 3mg Daily Vitamin K given: Drug Interaction Changes: Ongoing Drug Interactions: Patient reports not taking Coumadin currently A:INR Below desired Range. Target Range for this patient is: 2 -3 P: Warfarin dose: 5 mg Today at 1600 Bridge Therapy: None Next INR due 09/30/17 Pharmacy anticoagulation service will continue to follow. AMARIS BUTLER, 09/29/17 [id number]
[2017-09-29] MEDS: CHLORTHALIDONE 25 MG TABLET PO SCH (08:46)
[2017-09-29 08:47] VITALS: BP 124/63
[2017-09-29] MEDS: SERTRALINE 50 MG TABLET. PO SCH (08:47)
[2017-09-29] MEDS: POTASSIUM CHLORIDE 20 MEQ TABLET.ER. PO SCH (08:47)
[2017-09-29] MEDS: MAGNESIUM OXIDE 400 MG TABLET PO SCH (08:47)
[2017-09-29] MEDS: METOPROLOL TART IMMED RELEASE 50 MG TABLET PO SCH (08:47)
[2017-09-29] MEDS: MONTELUKAST 10 MG TABLET. PO SCH (08:47)
[2017-09-29] MEDS ORDERED: ATORVASTATIN CALCIUM 20 MG TABLET PO SCH (09:00)
--- NOTE | 2017-09-29 10:07 | PN ---
DATE: 09/28/2017 SUBJECTIVE: The patient is sitting comfortably in her chair, in no apparent distress. On questioning her, she denied any complaints and that she is ready to go home. Unfortunately, the ER physician did not mention that her lipase was high and because of her subtherapeutic INRs, in fact that she came with chest pain and now she has also possible pancreatitis, I recommend that the patient would stay and we had a lengthy discussion with her and her daughter and arrange for her to have a CT scan of the chest with PE protocol and CT scan of the abdomen. PHYSICAL EXAMINATION: GENERAL: When I examined her this morning, she looked well and was clearly in no apparent respiratory distress, slightly pale, but no jaundice, cyanosis, or thyromegaly. No jugular venous distension. No lower limb edema. VITAL SIGNS: Her heart rate was 62, blood pressure was 96/56, temperature was 97.8, respiratory rate was 18, and oxygen saturation was 92%. HEAD, EYES, EARS, NOSE AND THROAT: Normocephalic, atraumatic. NECK: Supple. HEART: Showed normal first and second heart sounds with no gallop, rub or murmur. CHEST: Clear to auscultation. No crepitation or rhonchi. ABDOMEN: Distended, soft, nontender. No guarding or rigidity. No organomegaly. All hernial orifices are intact. Bowel sounds normal. NEUROLOGIC: She is awake, alert, but demented. However, all her cranial nerves are intact. She moves extremities without difficulty. She ambulates without assistance or assistive devices. LABORATORY DATA: Her lab work this morning showed a white cell count 9900, hemoglobin 11, hematocrit 32, MCV 90 and platelet count of 212,000. Her chemistry this morning showed a serum sodium 134, potassium 3.8, chloride 94, bicarbonate 37, anion gap of 3, BUN 26, creatinine 1.2, estimated GFR was 42 mL per minute. Her glucose was 98, calcium was 9. Total bilirubin, AST, ALT, alkaline phosphatase were normal. She has 2 more sets of cardiac enzymes that were less than 0.017 and her total protein 6.3, albumin was 2.9. Her serum lipase yesterday was 1237, today was 1387. ASSESSMENT: In summary, this is an 87-year-old female patient who apparently lives alone who has dementia, and who came with chest pain. She had 3 sets of cardiac enzymes that were negative. Her INR was subtherapeutic, raising the possibility that she might have pulmonary embolism. She has also elevated serum lipase. I managed to convince the patient to stay. I have arranged for her to have a CT scan of the chest with PE protocol as well as CT scan of the abdomen and pelvis with contrast and we will rehydrate her given that her estimated GFR was less than 45 as per Radiology protocol. We will obviously repeat her lab works again tomorrow to make sure that her kidney function remains stable. JAMES SALMERON MD DR: YESY/dario JOB#: [id number] / [id number]
--- NOTE | 2017-09-29 10:28 | DS ---
DATE OF DISCHARGE: 09/27/2017 HOSPITAL COURSE: The patient is an 87-year-old female patient who yet again came complaining of chest pain. She has had 3 sets of cardiac enzymes that ruled out myocardial infarction. Her INR was subtherapeutic. She apparently stopped her Coumadin and we did actually CT scan of the chest with PE protocol, which showed no evidence of pulmonary embolism. Her lipase was high and we did also CT scan of the abdomen and pelvis with contrast, which showed that the CT scan of the chest was negative for pulmonary embolism. She has area of nodularity with tree-in-bud distribution on the left, involves both the upper and lower lobes, nonspecific, but frequently infectious etiology. Atypical infection can be considered. Three month followup would be of benefit. She has coronary artery disease and left upper lobe pulmonary nodule is stable. The CT scan of the abdomen and pelvis showed diverticulosis in the colon without finding of diverticulitis. She has evidence of cholecystomy, but the liver is without any discrete lesion. Gallbladder is absent. Spleen is not enlarged. Pancreas and adrenals unremarkable. PHYSICAL EXAMINATION: GENERAL: When I saw her today on questioning her, she denied any complaints. On examining her, she was pale, no jaundice, cyanosis, or thyromegaly. No jugular venous distension. No lower limb edema. VITAL SIGNS: Her heart rate was 60, blood pressure 124/63, temperature was 98.2, respiratory rate 20, and oxygen saturation was 97% on room air. HEAD, EYES, EARS, NOSE, AND THROAT: Normocephalic, atraumatic. NECK: Supple. HEART: Showed normal first and second sounds. No gallop, rub, or murmur. CHEST: Clear to auscultation. No crepitation or rhonchi. ABDOMEN: Distended, soft, nontender. No guarding or rigidity. No organomegaly. All hernial orifice intact. Bowel sounds normal. NEUROLOGIC: She was awake, alert, responding at times appropriately. All her cranial nerves intact. EXTREMITIES: She moves extremities without difficulty. She ambulates without assistance or assistive devices. LABORATORY DATA: This morning showed a prothrombin time of 14.5, INR 1.4. White cell count was 12,400, hemoglobin 11.3, hematocrit 34, MCV 91, and platelet count of 327,000. Her chemistry showed a serum sodium 137, potassium 4, chloride 98, bicarbonate 34, anion gap of 5, BUN 23, creatinine 1.1, estimated GFR was 47 mL per minute. Her glucose was 97, calcium was 9. Total bilirubin, AST, ALT, alkaline phosphatase were normal. Total protein was 6, albumin was 3. Her lipase was 993. Urinalysis was unremarkable. CT scan of the chest, abdomen and pelvis showed that she has no pulmonary emboli and the pancreas was unremarkable. DISCHARGE MEDICATIONS: She will be discharged home with home health to continue on atorvastatin calcium 40 mg at bedtime, chlorthalidone 25 mg once a day, magnesium oxide 400 mg twice a day, Singulair 10 mg once a day, Bystolic 10 mg once a day, potassium chloride 20 mEq twice a day, sertraline for Zoloft 50 mg once a day, valsartan 320 mg at bedtime, and warfarin 3 mg daily. FINAL DISCHARGE DIAGNOSES: 1. Chest pain with myocardial infarction ruled out. She has 3 sets of cardiac enzymes that were negative. 2. Acute pancreatitis. The patient is asymptomatic. Denied any pain. Denied any nausea or vomiting. Her lipase went up to almost 1400 and now trending down to 900 Other medical problems include coronary artery disease. The patient has 3 sets of cardiac enzymes, ruled out myocardial infarction. Hypertension, well controlled. Hyperlipidemia, on statin. Sick sinus syndrome, status post permanent pacemaker. Gastroesophageal reflux disease. Chronic kidney disease, stable. Deep vein thrombosis, on Coumadin with a subtherapeutic INR at 1.4. The patient will be discharged home with home health to monitor her PT/INR and adjust Coumadin as needed. Continue with physical therapy. The patient is demented. She lives alone and feels that it is unsafe for her to be there and she actually was to the state. JAMES SALMERON MD DR: YESY/dario JOB#: [id number] / [id number]
--- NOTE | 2017-09-29 12:09 | NUR ---
Discharge Note: SUKHWINDER ANVAS R1 [facility] Discharge instructions and discharge home medications reviewed with PATIENT and a copy given. All questions have been answered and understanding verbalized. The following instructions and handouts were given: MEDICATIONS, FOLLOW UP INSTRUCTIONS, AND EDUCATIONAL HANDOUTS GIVEN. Discontinued lines and drains: PERIPHERAL IV DISCONTINUED WITH NO COMPLICATIONS. Patient discharged to HOME with FAMILY via PRIVATE VEHICLE.
[2017-09-29] MEDS ORDERED: WARFARIN 5 MG TABLET. PO ONE (16:00)
== END 2017-09-29 12:12 | disposition home health service (06) | DRG 193 ==
LOC: ER 15:08 → 1 SOUTH 16:25 → ER 16:52
PROVIDERS: ADMIT Internal Medicine; ATTEND Internal Medicine
DX: R09.1 Pleurisy (principal); K85.90 Acute pancreatitis without necrosis or infection, unspecified; M19.90 Unspecified osteoarthritis, unspecified site; J44.9 Chronic obstructive pulmonary disease, unspecified; I44.7 Left bundle-branch block, unspecified; I25.10 Atherosclerotic heart disease of native coronary artery without angina pectoris; N18.9 Chronic kidney disease, unspecified; I12.9 Hypertensive chronic kidney disease with stage 1 through stage 4 chronic kidney disease, or unspecified chronic kidney disease; I49.5 Sick sinus syndrome; K21.9 Gastro-esophageal reflux disease without esophagitis; E78.5 Hyperlipidemia, unspecified; F03.90 Unspecified dementia, unspecified severity, without behavioral disturbance, psychotic disturbance, mood disturbance, and anxiety; R91.1 Solitary pulmonary nodule; K57.30 Diverticulosis of large intestine without perforation or abscess without bleeding; R79.1 Abnormal coagulation profile; Z86.718 Personal history of other venous thrombosis and embolism; Z90.49 Acquired absence of other specified parts of digestive tract; Z90.710 Acquired absence of both cervix and uterus; Z90.89 Acquired absence of other organs; Z87.891 Personal history of nicotine dependence; I25.2 Old myocardial infarction; Z95.0 Presence of cardiac pacemaker; Z88.8 Allergy status to other drugs, medicaments and biological substances; Z90.722 Acquired absence of ovaries, bilateral; Z90.79 Acquired absence of other genital organ(s); Z79.01 Long term (current) use of anticoagulants
CPT/HCPCS: 36415; 71045; 71275; 74177; 80053; 81001; 82553; 83690; 83735; 83880; 84484; 85007; 85025; 85027; 85610; 87086; 93005; Q9967; 99285-25; J7030

== ENCOUNTER 2018-08-08 19:32 | Inpatient (IN) | payer MEDICARE, OTHER ==
[~2018-08-08] VITALS: Ht 149.9 cm; Wt 46.7 kg
[~2018-08-08 19:32] MED LIST changes: -AMLO10TA2 PO; +AMLO10TA8 PO; -CHLO25TA PO; +CHLO25TA9 PO; +WARF3TAB54 PO
--- NOTE | 2018-08-08 19:38 | ED.ADGEN ---
Past History Past Medical History: Arthritis, Asthma, COPD, Dementia, DVT, Hypertension, PA, Other Additional Past Medical Histor: history of DVT Past Surgical History: Appendectomy, Hysterectomy, Pacemaker, Tonsillectomy Smoking: Non-smoker, Quit Greater Than 1 Year Alcohol Use: None Drug Use: None Adult General Chief Complaint Chief Complaint " She show up at my house and asked if I had a fierro to her house... she was confused.. she has not lived there for years..." Neighbor " I did not have a fierro to get into my house..." HPI HPI Patient is a 88 year old female who presents with above hx and complaints mental status change. Patient presented to her neighbors old home asking for fierro to get into her house. Patient on arrival to emergency department obviously has some short and nursing home memory issues and confusion. Pt. has no complaints. Eventually on search records we were able to identify her daughter address she was contacted. Daughter presented to the emergency department. Daughter states her mother has become more demented with time and she has locked doors both inside and out to keep her from wandering off. Daughter states she has wander off several times, if she is not under constant observation. Today the door were locked and her mother apparently crawled out the pet access door. Daughter states when she gets out she usually goes to one of the neighbors homes where she lives. Pt. currently following with [facility] for care. Review of Systems Review of Systems Pt. has no complaints Constitutional: Denies fever or chills [] Eyes: Denies change in visual acuity, redness, or eye pain [] HENT: Denies nasal congestion or sore throat [] Respiratory: Denies cough or shortness of breath [] Cardiovascular: No additional information not addressed in HPI [] GI: Denies abdominal pain, nausea, vomiting, bloody stools or diarrhea [] : Denies dysuria or hematuria [] Musculoskeletal: Denies back pain or joint pain [] Integument: Denies rash or skin lesions [] Neurologic: Denies headache, focal weakness or sensory changes [] Endocrine: Denies polyuria or polydipsia [] All other systems were reviewed and found to be within normal limits, except as documented in this note. Family History Family History Non-contributory Current Medications Current Medications See Nursing for home meds. Allergies Allergies Allergies Coded Allergies Type Severity Reaction Last Updated Verified celecoxib Allergy Intermediate 04/28/14 Yes Physical Exam Physical Exam Constitutional: no acute distress, non-toxic appearance. [] HENT: Normocephalic, atraumatic, bilateral external ears normal, oropharynx m oist, no oral exudates, nose normal. [] Eyes: PERRLA, EOMI, conjunctiva normal, no discharge. Glasses Neck: Normal range of motion, no tenderness, supple, no stridor. [] Cardiovascular:Heart rate regular rhythm, no murmur , PMI to Lt. . Lungs & Thorax: Bilateral breath sounds clear to auscultation []Basilar crackles . Pacer scar Lt. Abdomen: Bowel sounds normal, soft, no tenderness, no masses, no pulsatile masses. [] Skin: Warm, dry, no erythema, no rash. Poor turgor. Back: No tenderness, no CVA tenderness. Kyphosis Extremities: No tenderness, no cyanosis, no clubbing, ROM intact, Arthritic changes, bilateral leg edema. Neurologic: Alert and oriented X 3, normal motor function, normal sensory function, no focal deficits noted. [] Psychologic: Affect normal, judgement normal, mood normal. [] Current Patient Data Lab Results Laboratory Tests Test 08/08/18 19:50 Urine Collection Type Unknown Urine Color Casie Urine Clarity Hazy Urine pH 6.0 Urine Specific [place] <=1.005 Urine Protein Neg (NEG-TRACE) Urine Glucose (UA) Neg mg/dL (NEG) Urine Ketones (Stick) Neg mg/dL (NEG) Urine Blood Neg (NEG) Urine Nitrite Neg (NEG) Urine Bilirubin Neg (NEG) Urine Urobilinogen Dipstick 0.2 mg/dL (0.2 mg/dL) Urine Leukocyte Esterase Neg (NEG) Urine RBC 0 /HPF (0-2) Urine WBC 0 /HPF (0-4) Urine Squamous Epithelial Cells Occ /LPF Urine Bacteria 0 /HPF (0-FEW) Urine Opiates Screen Neg (NEG) Urine Methadone Screen Neg (NEG) Urine Barbiturates Neg (NEG) Urine Phencyclidine Screen Neg (NEG) Urine Amphetamine/Methamphetamine Neg (NEG) Urine Benzodiazepines Screen Neg (NEG) Urine Cocaine Screen Neg (NEG) Urine Cannabinoids Screen Neg (NEG) Urine Ethyl Alcohol Neg (NEG) EKG EKG EKG sinus with prolong[]Pr. Intra venticular block Radiology/Procedures Radiology/Procedures My interpretation of CT head shows no shift, mass, edema, bleed, or fracture. Does have findings of atrophy. See formal report when available. My interpretation chest x-ray shows cardiomegaly. Emphysematous/COPD changes. Pacer on the left. Does have clips in right upper abdomen.[] Course & Med Decision Making Course & Med Decision Making Pertinent Labs and Imaging studies reviewed. (See chart for details) Patient admitted to Dr. Magana for further evaluation and tx. - possible social service consult. [] Final Impression Final Impression 1. Mental Status Change[] 2. Hypokalemia 2.8 3. Hypomagnesium 1.5 4. Anemia 11.8 5. Leukocytosis 11.3 6. CHF-diastolic dysfunction BNP 2318 7. Dementia 8. COPD/ Emphysema 9. Acute on Chronic Leg Edema Dragon Disclaimer Dragon Disclaimer This electronic medical record was generated, in whole or in part, using a voice recognition dictation system. Discharge Summary Visit Information Final Diagnosis Problems Medical Problems: (1) Mental status change resolved Status: Acute Brief Hospital Course Allergies Allergies Coded Allergies Type Severity Reaction Last Updated Verified celecoxib Allergy Intermediate 04/28/14 Yes Lab Results Laboratory Tests Test 08/08/18 19:50 Urine Collection Type Unknown Urine Color Casie Urine Clarity Hazy Urine pH 6.0 Urine Specific [place] <=1.005 Urine Protein Neg (NEG-TRACE) Urine Glucose (UA) Neg mg/dL (NEG) Urine Ketones (Stick) Neg mg/dL (NEG) Urine Blood Neg (NEG) Urine Nitrite Neg (NEG) Urine Bilirubin Neg (NEG) Urine Urobilinogen Dipstick 0.2 mg/dL (0.2 mg/dL) Urine Leukocyte Esterase Neg (NEG) Urine RBC 0 /HPF (0-2) Urine WBC 0 /HPF (0-4) Urine Squamous Epithelial Cells Occ /LPF Urine Bacteria 0 /HPF (0-FEW) Urine Opiates Screen Neg (NEG) Urine Methadone Screen Neg (NEG) Urine Barbiturates Neg (NEG) Urine Phencyclidine Screen Neg (NEG) Urine Amphetamine/Methamphetamine Neg (NEG) Urine Benzodiazepines Screen Neg (NEG) Urine Cocaine Screen Neg (NEG) Urine Cannabinoids Screen Neg (NEG) Urine Ethyl Alcohol Neg (NEG) Brief Hospital Course Ms. Lai is a 88 old female who presented with mental status change and hypokalemia. Admitted Dr. Magana. Discharge Information Condition at Discharge: Improved, Stable Dischare Medications Active Scripts Active Reported Coumadin (Warfarin Sodium) 3 Mg Tablet 1 Tab PO DAILY LAST DOSE GIVEN: DATE: YESTERDAY TIME: EVENING NEXT DOSE DUE: DATE: TODAY TIME: EVENING Zoloft (Sertraline Hcl) 50 Mg Tablet 1 Tab PO DAILY LAST DOSE GIVEN: DATE: TIME: AM NEXT DOSE DUE: DATE: TOMORROW TIME: AM Magnesium Oxide 400 Mg Tablet 1 Tab PO BID LAST DOSE GIVEN: DATE: TIME: AM NEXT DOSE DUE: DATE: TODAY TIME: PM Chlorthalidone (Chlorthalidone) 25 Mg Tablet 1 Tab PO DAILY LAST DOSE GIVEN: DATE: TIME: AM NEXT DOSE DUE: DATE: ORR TIME: AM Bystolic (Nebivolol Hcl) 10 Mg Tablet 1 Tab PO DAILY LAST DOSE GIVEN: DATE: TIME: AM NEXT DOSE DUE: DATE: TIME: AM Diovan (Valsartan) 320 Mg Tablet 1 Tab PO HS LAST DOSE GIVEN: DATE: YES TIME: AT BEDTIME NEXT DOSE DUE: DATE: TIME: AT BEDTIME K-Tab ER (Potassium Chloride) 20 Meq Tablet.er 20 Meq PO BID LAST DOSE GIVEN: DATE: TIME: AM NEXT DOSE DUE: DATE: TIME: PM Lipitor (Atorvastatin Calcium) 40 Mg Tablet 40 Mg PO QODAY LAST DOSE GIVEN: DATE: TIME: AM NEXT DOSE DUE: DATE: WEDNESDAY TIME: AM Singulair Tablet (Montelukast Sodium) 10 Mg Tablet 10 Mg PO DAILY LAST DOSE GIVEN: DATE: TIME: AM NEXT DOSE DUE: DATE: TIME: AM Maggie Disclaimer This chart was dictated in whole or in part using Voice Recognition software in a busy, high-work load, and often noisy Emergency Department environment. It may contain unintended and wholly unrecognized errors or omissions. KATHLEEN KIDD MD Aug 08, 2018 19:38
--- NOTE | 2018-08-08 20:31 | RAD ---
CT HEAD WO CONTRAST Indication: Mental status change, confusion Exposure: One or more of the following individualized dose reduction techniques were utilized for this examination: 1. Automated exposure control 2. Adjustment of the mA and/or kV according to patient size 3. Use of iterative reconstruction technique. Technique: Standard imaging without intravenous contrast. Posterior fossa is unremarkable. No evidence of acute intracranial hemorrhage, mass effect, midline shift or abnormal extra-axial fluid collection. Angel-white matter distinction is maintained. Ventricles are symmetric. The orbits appear symmetric. No prominent scalp swelling. Partially included sinuses are clear. No acute skull abnormality. IMPRESSION: No evidence of acute intracranial hemorrhage or mass effect. Electronically signed by: Remy Pratt MD (08/08/2018 8:28 PM) [facility]
[2018-08-08 20:44] LABS: BASO # 0.1 x10^3/uL (0.0-0.2); BASO % 1 % (0-3); EOS # 0.1 x10^3/uL (0.0-0.7); EOS % 1 % (0-3); HEMATOCRIT 35.1 % (36.0-47.0); HEMOGLOBIN 11.8 g/dL (12.0-15.5); LYMPH # 1.1 x10^3/uL (1.0-4.8); LYMPH % 10 % (24-48); MEAN CORPUSCULAR HEMOGLOBIN 32 pg (25-35); MEAN CORPUSCULAR HGB CONC 34 g/dL (31-37); MEAN CORPUSCULAR VOLUME 96 fL (79-100); MONO # 0.6 x10^3/uL (0.0-1.1); MONO % 5 % (0-9); NEUT # 9.5 x10^3uL (1.8-7.7); NEUT % 84 % (31-73); PLATELET COUNT 207 x10^3/uL (140-400); RED BLOOD COUNT 3.67 x10^6/uL (3.50-5.40); RED CELL DISTRIBUTION WIDTH 14.6 % (11.5-14.5); WHITE BLOOD COUNT 11.3 x10^3/uL (4.0-11.0)
[2018-08-08 21:01] LABS: BACTERIA,URINE 0 /HPF (0-FEW); BILIRUBIN,URINE NEG (NEG); CLARITY,URINE HAZY; COLOR,URINE AMBER; GLUCOSE,URINE NEG (NEG); NITRITE,URINE NEG (NEG); RBC,URINE 0 /HPF (0-2); SQUAMOUS EPITHELIAL CELL,UR OCC /LPF; UROBILINOGEN,URINE 0.2 mg/dL (0.2 mg/dL); WBC,URINE 0 /HPF (0-4)
[2018-08-08 21:07] LABS: BARBITURATES NEG (NEG); BENZODIAZEPINES NEG (NEG); CANNABINOIDS NEG (NEG); COCAINE NEG (NEG); METHADONE NEG (NEG); OPIATES NEG (NEG); PHENCYCLIDINE NEG (NEG)
[2018-08-08 21:08] LABS: AMPHETAMINE/METHAMPHETAMINE NEG (NEG)
--- NOTE | 2018-08-08 21:09 | RAD ---
CHEST PA LATERAL History: Altered mental status, confusion, congestion. Comparison with 09/27/2017. Pacemaker device again identified. There is hyperexpansion of both lungs compatible with emphysema. No evidence of pneumothorax. No pleural effusion. No evidence of an infiltrate. Regional skeleton appears intact. IMPRESSION: No evidence of consolidating infiltrate. Electronically signed by: Remy Pratt MD (08/08/2018 9:07 PM) [facility]
[2018-08-08 21:13] LABS: CALCIUM 9.1 mg/dL (8.5-10.1); CREATININE 1.1 mg/dL (0.6-1.0); GFR 47.1; MAGNESIUM 1.5 mg/dL (1.8-2.4)
[2018-08-08 21:18] LABS: POTASSIUM 2.8 mmol/L (3.5-5.1)
[2018-08-08] MEDS ORDERED: POTASSIUM CHLORIDE 20 MEQ/15 ML ORAL LIQUID. PO ONE (21:45)
[2018-08-08] MEDS ORDERED: MAGNESIUM SULFATE 2GM 50 ML IV ONE (21:45)
[2018-08-08 21:55] LABS: SEDIMENTATION RATE 13 (0-25)
[2018-08-08] MEDS ORDERED: ONDANSETRON PF 4 MG/2 ML VIAL. IV PRN (22:00)
[2018-08-08] MEDS ORDERED: ENOXAPARIN 40 MG/0.4 ML SYRINGE. SQ ONE (22:15)
[2018-08-08 23:45] VITALS: BP 120/62
[2018-08-09 05:10] VITALS: BP 121/62
[2018-08-09 06:14] LABS: BASO % 1 % (0-3); EOS # 0.2 x10^3/uL (0.0-0.7); EOS % 2 % (0-3); HEMATOCRIT 26.9 % (36.0-47.0); HEMOGLOBIN 9.1 g/dL (12.0-15.5); LYMPH # 1.4 x10^3/uL (1.0-4.8); LYMPH % 20 % (24-48); MEAN CORPUSCULAR HEMOGLOBIN 33 pg (25-35); MEAN CORPUSCULAR HGB CONC 34 g/dL (31-37); MEAN CORPUSCULAR VOLUME 96 fL (79-100); MONO # 0.5 x10^3/uL (0.0-1.1); MONO % 8 % (0-9); NEUT # 4.9 x10^3uL (1.8-7.7); NEUT % 70 % (31-73); PLATELET COUNT 170 x10^3/uL (140-400); RED BLOOD COUNT 2.81 x10^6/uL (3.50-5.40); RED CELL DISTRIBUTION WIDTH 14.4 % (11.5-14.5)
[2018-08-09 06:24] LABS: CALCIUM 8.3 mg/dL (8.5-10.1); CREATININE 0.9 mg/dL (0.6-1.0); GFR 59.4; POTASSIUM 3.2 mmol/L (3.5-5.1)
[2018-08-09] MEDS ORDERED: POTASSIUM CHLORIDE 20 MEQ TABLET.ER. PO ONE (07:30)
[2018-08-09] MEDS ORDERED: IPRATRPIUM/ALBUTEROL 0.5/2.5MG 3 ML NEBU. NEB SCH (08:00)
[2018-08-09] MEDS ORDERED: ENOXAPARIN 40 MG/0.4 ML SYRINGE. SQ SCH (09:00)
[2018-08-09] MEDS ORDERED: IPRATRPIUM/ALBUTEROL 0.5/2.5MG 3 ML NEBU. NEB PRN (10:00)
[2018-08-09 10:34] VITALS: BP 125/57
--- NOTE | 2018-08-09 10:42 | EKG ---
[address] [address] Test Date: 2018-08-08 Test Time: 20:47:01 Pat Name: SUKHWINDER NAVAS Department: Room: 125 A Gender: F Inventory Management Specialist: JEANIE : [id number] Requested By: KATHLEEN KIDD Order Number: [id number] Reading MD: Owen Lopes Measurements Intervals [place] Rate: 77 P: 58 KS: 244 QRS: -64 QRSD: 180 T: 94 QT: 450 QTc: 511 Interpretive Statements V PACED RHYTHM Electronically Signed On 08-12-2018 9:24:36 CDT by Owen Lopes
[2018-08-09 14:10] LABS: CALCIUM 8.6 mg/dL (8.5-10.1); CREATININE 1.1 mg/dL (0.6-1.0); GFR 47.1; MAGNESIUM 1.9 mg/dL (1.8-2.4)
[2018-08-09 14:47] VITALS: BP 157/63
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
[2018-08-09] MEDS ORDERED: MAGNESIUM OXIDE 400 MG TABLET PO SCH (21:00)
[2018-08-09] MEDS ORDERED: LOSARTAN 50 MG TABLET. PO SCH (21:00)
[2018-08-09] MEDS ORDERED: POTASSIUM CHLORIDE 20 MEQ TABLET.ER. PO SCH (21:00)
[2018-08-09] MEDS ORDERED: METOPROLOL TART IMMED RELEASE 50 MG TABLET PO SCH (21:00)
[2018-08-10] MEDS ORDERED: FUROSEMIDE 40 MG TABLET PO SCH (09:00)
[2018-08-10] MEDS ORDERED: MONTELUKAST 10 MG TABLET. PO SCH (09:00)
[2018-08-10] MEDS ORDERED: SERTRALINE 50 MG TABLET. PO SCH (09:00)
[2018-08-10] MEDS ORDERED: CHLORTHALIDONE 25 MG TABLET PO SCH (09:00)
[2018-08-10] MEDS ORDERED: NON FORMULARY ITEM (Warfarin Sodium (Coumadin) 1 TAB) PO SCH (09:00)
[2018-08-11] MEDS ORDERED: ATORVASTATIN CALCIUM 20 MG TABLET PO SCH (09:00)
== END 2018-08-09 16:00 | disposition home or self-care (01) | DRG 640 ==
LOC: ER 19:32 → 1 SOUTH 20:00
PROVIDERS: ADMIT Internal Medicine; ATTEND Internal Medicine
DX: E87.6 Hypokalemia (principal); G93.41 Metabolic encephalopathy; E78.5 Hyperlipidemia, unspecified; E83.42 Hypomagnesemia; I49.5 Sick sinus syndrome; M19.90 Unspecified osteoarthritis, unspecified site; F03.90 Unspecified dementia, unspecified severity, without behavioral disturbance, psychotic disturbance, mood disturbance, and anxiety; I12.9 Hypertensive chronic kidney disease with stage 1 through stage 4 chronic kidney disease, or unspecified chronic kidney disease; I25.10 Atherosclerotic heart disease of native coronary artery without angina pectoris; J44.9 Chronic obstructive pulmonary disease, unspecified; K21.9 Gastro-esophageal reflux disease without esophagitis; N18.9 Chronic kidney disease, unspecified; Z86.718 Personal history of other venous thrombosis and embolism; Z90.49 Acquired absence of other specified parts of digestive tract; Z90.710 Acquired absence of both cervix and uterus; Z95.0 Presence of cardiac pacemaker; Z88.6 Allergy status to analgesic agent
CPT/HCPCS: 36415; 70450; 71046; 80048; 80307; 81001; 82140; 82550; 83605; 83735; 83880; 84484; 85025; 85610; 85651; 85730; 87040; 93005; 96365; 96372; 96375; J1650; J2405; J3475; 99285-25

== ENCOUNTER 2019-01-19 12:35 | Inpatient (IN) | payer MEDICARE, OTHER ==
[~2019-01-19] VITALS: Ht 149.9 cm; Wt 46.5 kg
[~2019-01-19 12:35] MED LIST changes: -MAGN400T3 PO; +MAGN400T5 PO; -MONT10TA6 PO; +MONT10TA80 PO
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
[2019-01-19 13:46] LABS: BASO % 0 % (0-3); EOS # 0.1 x10^3/uL (0.0-0.7); EOS % 1 % (0-3); HEMATOCRIT 37.5 % (36.0-47.0); HEMOGLOBIN 12.3 g/dL (12.0-15.5); LYMPH % 12 % (24-48); MEAN CORPUSCULAR HEMOGLOBIN 31 pg (25-35); MEAN CORPUSCULAR HGB CONC 33 g/dL (31-37); MEAN CORPUSCULAR VOLUME 96 fL (79-100); MONO # 0.4 x10^3/uL (0.0-1.1); MONO % 5 % (0-9); NEUT # 6.4 x10^3uL (1.8-7.7); NEUT % 81 % (31-73); PLATELET COUNT 190 x10^3/uL (140-400); RED BLOOD COUNT 3.92 x10^6/uL (3.50-5.40); RED CELL DISTRIBUTION WIDTH 14.9 % (11.5-14.5); WHITE BLOOD COUNT 7.9 x10^3/uL (4.0-11.0)
[2019-01-19 13:59] LABS: BILIRUBIN,URINE NEG (NEG); CLARITY,URINE HAZY; COLOR,URINE YELLOW; GLUCOSE,URINE NEG (NEG); NITRITE,URINE NEG (NEG); UROBILINOGEN,URINE 0.2 mg/dL (0.2 mg/dL)
[2019-01-19 14:00] LABS: BACTERIA,URINE FEW /HPF (0-FEW); GRANULAR CASTS,URINE OCC /HPF; HYALINE CASTS, URINE FEW /HPF; SQUAMOUS EPITHELIAL CELL,UR FEW /LPF
[2019-01-19 14:02] LABS: ALBUMIN 3.6 g/dL (3.4-5.0); CALCIUM 9.1 mg/dL (8.5-10.1); CREATININE 1.1 mg/dL (0.6-1.0); GFR 47.1; POTASSIUM 3.3 mmol/L (3.5-5.1); TOTAL BILIRUBIN 0.6 mg/dL (0.2-1.0); TOTAL PROTEIN 7.2 g/dL (6.4-8.2)
--- NOTE | 2019-01-19 14:03 | RAD ---
Two-view right tibia fibula HISTORY: Possible injury. No evidence of acute fracture or aggressive bone destruction. Degenerative changes are identified at the knee no definite soft tissue abnormality. IMPRESSION: No evidence of definite acute fracture. Electronically signed by: Remy Pratt MD (01/19/2019 2:00 PM) [facility]
[2019-01-19 17:07] VITALS: BP 167/92
[2019-01-19] MEDS ORDERED: POTASSIUM CHLORIDE 20 MEQ TABLET.ER. PO ONE (17:15)
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
--- NOTE | 2019-01-19 18:11 | NUR ---
The patient, SUKHWINDER NAVAS, 88 y/o, F admitted by JAMES SALMERON MD, was given written information regarding hospital policies, unit procedures and contact persons. Valuables were checked and are with patient. .
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
[2019-01-19 19:20] VITALS: BP_SYST 12; BP_SYST 128; BP_DIAS 6
[2019-01-19] MEDS: POTASSIUM CHLORIDE 20 MEQ TABLET.ER. PO SCH (20:22)
[2019-01-19] MEDS: LOSARTAN 50 MG TABLET. PO SCH (20:22)
[2019-01-19] MEDS: MAGNESIUM OXIDE 400 MG TABLET PO SCH (20:23)
[2019-01-19] MEDS: METOPROLOL TART IMMED RELEASE 50 MG TABLET PO SCH (20:27)
[2019-01-19] MEDS ORDERED: FLU VAX QS 2019-20 (36MOS+)/PF 0.5 ML SYRINGE. VAX IM ONE (21:00)
[2019-01-19 23:42] VITALS: BP 111/61
[2019-01-20] MEDS ORDERED: CALCIUM CARBONATE 500 MG TAB.CHEW PO PRN (02:15)
[2019-01-20] MEDS ORDERED: ACETAMINOPHEN 325 MG TABLET PO PRN (02:15)
[2019-01-20 07:08] LABS: CALCIUM 8.9 mg/dL (8.5-10.1); CREATININE 1.1 mg/dL (0.6-1.0); GFR 47.1; MAGNESIUM 1.6 mg/dL (1.8-2.4); POTASSIUM 4.3 mmol/L (3.5-5.1)
[2019-01-20] MEDS: MONTELUKAST 10 MG TABLET. PO SCH (08:29)
[2019-01-20] MEDS: METOPROLOL TART IMMED RELEASE 50 MG TABLET PO SCH ×3 (08:29→21:20)
[2019-01-20] MEDS: CHLORTHALIDONE 25 MG TABLET PO SCH (08:29)
[2019-01-20] MEDS: POTASSIUM CHLORIDE 20 MEQ TABLET.ER. PO SCH ×2 (08:29→21:02)
[2019-01-20] MEDS: SERTRALINE 50 MG TABLET. PO SCH (08:29)
[2019-01-20] MEDS: MAGNESIUM OXIDE 400 MG TABLET PO SCH ×2 (08:29→21:02)
[2019-01-20 13:04] VITALS: BP 132/84
[2019-01-20] MEDS: WARFARIN 3 MG TABLET. PO SCH (17:01)
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
[2019-01-20 19:47] VITALS: BP 125/74
[2019-01-20] MEDS: LOSARTAN 50 MG TABLET. PO SCH (21:02)
[2019-01-20 22:23] VITALS: BP 138/78
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
[2019-01-21 05:41] VITALS: BP 145/76
[2019-01-21] MEDS: MAGNESIUM OXIDE 400 MG TABLET PO SCH ×2 (08:26→20:49)
[2019-01-21] MEDS: MONTELUKAST 10 MG TABLET. PO SCH (08:26)
[2019-01-21] MEDS: ATORVASTATIN CALCIUM 20 MG TABLET PO SCH (08:26)
[2019-01-21] MEDS: SERTRALINE 50 MG TABLET. PO SCH (08:27)
[2019-01-21] MEDS: POTASSIUM CHLORIDE 20 MEQ TABLET.ER. PO SCH ×2 (08:27→20:48)
[2019-01-21] MEDS: METOPROLOL TART IMMED RELEASE 50 MG TABLET PO SCH ×2 (08:27→20:48)
[2019-01-21] MEDS: CHLORTHALIDONE 25 MG TABLET PO SCH (08:27)
[2019-01-21 11:27] VITALS: BP 124/65
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
[2019-01-21 14:49] VITALS: BP 128/76
[2019-01-21] MEDS: WARFARIN 3 MG TABLET. PO SCH (16:00)
[2019-01-21 19:35] VITALS: BP 127/74
[2019-01-21] MEDS: LOSARTAN 50 MG TABLET. PO SCH (20:49)
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
--- NOTE | 2019-01-22 04:06 | EKG ---
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
[2019-01-22 06:30] VITALS: BP 150/72
[2019-01-22 06:49] LABS: HEMATOCRIT 35.3 % (36.0-47.0); HEMOGLOBIN 11.4 g/dL (12.0-15.5); RED BLOOD COUNT 3.69 x10^6/uL (3.50-5.40); RED CELL DISTRIBUTION WIDTH 14.2 % (11.5-14.5); WHITE BLOOD COUNT 7.8 x10^3/uL (4.0-11.0)
[2019-01-22 06:54] LABS: CALCIUM 8.5 mg/dL (8.5-10.1); CREATININE 0.9 mg/dL (0.6-1.0); GFR 59.4; POTASSIUM 4.5 mmol/L (3.5-5.1)
[2019-01-22] MEDS: CHLORTHALIDONE 25 MG TABLET PO SCH (09:11)
[2019-01-22] MEDS: POTASSIUM CHLORIDE 20 MEQ TABLET.ER. PO SCH ×2 (09:11→20:53)
[2019-01-22] MEDS: MONTELUKAST 10 MG TABLET. PO SCH (09:12)
[2019-01-22] MEDS: METOPROLOL TART IMMED RELEASE 50 MG TABLET PO SCH ×2 (09:12→20:52)
[2019-01-22] MEDS: SERTRALINE 50 MG TABLET. PO SCH (09:12)
[2019-01-22] MEDS: MAGNESIUM OXIDE 400 MG TABLET PO SCH ×2 (09:12→20:52)
[2019-01-22 10:47] VITALS: BP 127/60
[2019-01-22] MEDS ORDERED: IOHEXOL 350 MG/ML 100 ML VIAL. IV ONE (14:30)
[2019-01-22] MEDS: WARFARIN 6 MG TABLET. PO SCH (14:36)
[2019-01-22] MEDS: ENOXAPARIN 40 MG/0.4 ML SYRINGE. SQ SCH (14:37)
[2019-01-22 16:12] VITALS: BP 129/74
[2019-01-22 20:40] VITALS: BP 139/80
[2019-01-22] MEDS: LOSARTAN 50 MG TABLET. PO SCH (20:52)
--- NOTE | 2019-01-23 00:36 | PN ---
DATE: SUBJECTIVE: The patient is resting, slightly propped up in bed, no apparent distress. She denied any complaint. The nursing staff; however, stated that she was desaturating to the 80s on room air. She was put on 2 liters of oxygen. Her oxygen saturation has risen to 92%. The patient herself denied any chest pain, shortness of breath, cough, phlegm or hemoptysis. She is normally on Coumadin; however, her INR is subtherapeutic. PHYSICAL EXAMINATION: GENERAL: When I saw her this afternoon, she looked well and was clearly in no apparent respiratory distress, pale, but no jaundice, cyanosis or thyromegaly. No jugular venous distention. No limb edema. VITAL SIGNS: Her heart rate was 60, blood pressure 150/72, temperature was 98, respiratory rate was 18 and oxygen saturation was 92% on 2 liters of oxygen. HEAD, EYES, EARS, NOSE AND THROAT: Showed normocephalic, atraumatic. NECK: Supple. HEART: Showed normal first and second heart sounds. No gallop or murmur. CHEST: Clear to auscultation. No crepitation or rhonchi. ABDOMEN: Distended, soft, nontender. No guarding or rigidity. No organomegaly. All hernial orifice intact. Bowel sounds normal. NEUROLOGIC: She is demented without any obvious lateralizing sign. LABORATORY DATA: Showed her prothrombin time was 10.6, INR 1, which is definitely subtherapeutic. Her white cell count was 7800, hemoglobin 11, hematocrit 35, MCV 96, platelet count 201,000. Her chemistry showed a serum sodium 134, potassium 4.5, chloride 96, bicarbonate was 31, anion gap of 7, BUN 22, creatinine 0.9, estimated GFR was 59 mL per minute. Her glucose was 94, calcium was 8.5. Urinalysis was unremarkable. ASSESSMENT: Acute hypoxic respiratory failure. The cause is not clear. She was on Coumadin for deep venous thrombosis and apparently she is noncompliant. Her INR is subtherapeutic. She also has history of bronchial asthma, hypertension and hyperlipidemia. PLAN: My plan is to start her on Lovenox 1 mg/kg twice a day. We will arrange for her to have a CT angio of the chest and decide on further management accordingly. JAMES SALMERON MD DR: Lester JOB#: [id number] / [id number]
[2019-01-23 05:22] VITALS: BP 141/71
[2019-01-23] MEDS: METOPROLOL TART IMMED RELEASE 50 MG TABLET PO SCH ×2 (09:07→21:00)
[2019-01-23] MEDS: CHLORTHALIDONE 25 MG TABLET PO SCH (09:07)
[2019-01-23] MEDS: MAGNESIUM OXIDE 400 MG TABLET PO SCH ×2 (09:07→21:27)
[2019-01-23] MEDS: MONTELUKAST 10 MG TABLET. PO SCH (09:07)
[2019-01-23] MEDS: SERTRALINE 50 MG TABLET. PO SCH (09:07)
[2019-01-23] MEDS: POTASSIUM CHLORIDE 20 MEQ TABLET.ER. PO SCH ×2 (09:07→21:28)
[2019-01-23] MEDS: ATORVASTATIN CALCIUM 20 MG TABLET PO SCH (09:11)
[2019-01-23] MEDS ORDERED: IOHEXOL 350 MG/ML 100 ML VIAL. IV ONE (11:15)
[2019-01-23 11:41] VITALS: BP 113/73
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
--- NOTE | 2019-01-23 12:00 | RAD ---
Examination: CT angiography chest HISTORY: History of acute hypoxic respiratory failure, history of DVT COMPARISON: 09/28/2017 TECHNIQUE: Axial CT angiography images were performed with IV contrast. Coronal and sagittal 3-D MIP reformats are performed Exposure: One or more of the following individualized dose reduction techniques were utilized for this examination: 1. Automated exposure control 2. Adjustment of the mA and/or kV according to patient size 3. Use of iterative reconstruction technique FINDINGS: Moderate cardiomegaly. The caliber of the aorta grossly appears unremarkable. There is no evidence of filling defect identified in the main pulmonary arterial trunk and right and left main pulmonary arteries. There is mild thickening of the bronchial peterson in the left lingula and left lower lobe of the lung with focal consolidation in the left lingula of the lung. Bilateral pleural effusions left greater than right. Bibasilar lung airspace opacities or infiltrates. The visualized liver, spleen grossly appears unremarkable. Moderate degenerative changes thoracic spine. IMPRESSION: 1. No evidence of pulmonary embolism. 2. Bilateral pleural effusions, left greater than right, with thickening of the left lingula and left lower lobe bronchial peterson could be bronchitis. Bibasilar lung airspace opacities in left lingular consolidation likely pneumonia or atelectasis. Follow-up to resolution. Electronically signed by: Cristi Marks MD (01/23/2019 11:56 AM) [id number]
[2019-01-23] MEDS: ENOXAPARIN 40 MG/0.4 ML SYRINGE. SQ SCH (12:09)
[2019-01-23] MEDS ORDERED: FUROSEMIDE 40 MG TABLET PO ONE (13:45)
[2019-01-23] MEDS: WARFARIN 6 MG TABLET. PO SCH (16:28)
[2019-01-23 20:12] VITALS: BP 149/69
[2019-01-23] MEDS: LOSARTAN 50 MG TABLET. PO SCH (21:28)
--- NOTE | 2019-01-23 23:46 | PN ---
DATE: 01/23/2019 SUBJECTIVE: The patient is sitting comfortably in her chair in no apparent distress. She is now on 2 liters of oxygen, maintaining her oxygen saturation at 98% that dropped down whenever she exerts herself and she does not keep her oxygen on. She has a history of DVT and PE. We did a CT angio of the chest showed that she has no evidence of pulmonary embolism; however, she has bilateral pleural effusion, left greater than right with thickening of the left lingula and left lower lobe bronchial wall, could be bronchitis, bilateral lung airspace opacities and left lingular consolidation, likely pneumonia or atelectasis. Follow up to resolution. I did actually discontinue her chlorthalidone and start her on Lasix 40 mg. She will get one now and will start on a regular basis tomorrow. Her INR is subtherapeutic. We did start her on Lovenox and increase her Coumadin to 6 mg. PHYSICAL EXAMINATION: GENERAL: When I examined her this afternoon, she looked well and was clearly in no apparent respiratory distress, pale. No jaundice, cyanosis or thyromegaly. No jugular venous distension. No lower limb edema. VITAL SIGNS: Her heart rate was 60, blood pressure was 113/73, temperature was 98.1, respiratory rate was 19, and oxygen saturation was 98% on 2 liters of oxygen. HEAD, EYES, EARS, NOSE AND THROAT: Showed normocephalic, atraumatic. NECK: Supple. HEART: Showed normal first and second heart sounds. No gallop, rub or murmur. CHEST: Clear to auscultation. No crepitation or rhonchi. ABDOMEN: Distended, soft, and nontender. NEUROLOGIC: She is demented without any obvious lateralizing sign. She moves all extremities without difficulty. She ambulates with a walker. Her intake was 1880, no output was recorded. LABORATORY DATA: As of this morning showed her white cell count was 7800, hemoglobin 11, hematocrit 35, MCV 96, and platelet count 202,000. Her chemistry showed a serum sodium 134, potassium 4.5, chloride 96, bicarbonate 31, anion gap of 7, BUN 22, creatinine 0.9, estimated GFR was 59 mL per minute. Her glucose was 94 and calcium was 8.5. ASSESSMENT: Acute hypoxic respiratory failure, likely to acute on chronic diastolic congestive heart failure. Other medical problems include hypertension, hyperlipidemia, sick sinus syndrome, chronic kidney disease, history of deep vein thrombosis. CT scan did not show evidence of pulmonary emboli; however, she has bilateral pleural effusion, likely due to congestive heart failure. PLAN: To discontinue her chlorthalidone and start her on Lasix 40 mg now and 40 mg daily starting tomorrow. Continue with Coumadin. We will check her INR tomorrow and adjust her Coumadin to maintain INR between 2-2.5. JAMES SALMERON MD DR: YESY/dario JOB#: [id number] / [id number]
[2019-01-24 00:07] VITALS: BP 127/75
[2019-01-24 06:23] VITALS: BP 136/68
[2019-01-24 06:48] LABS: CALCIUM 9.4 mg/dL (8.5-10.1); CREATININE 1.2 mg/dL (0.6-1.0); GFR 42.6; HEMATOCRIT 41.2 % (36.0-47.0); HEMOGLOBIN 13.6 g/dL (12.0-15.5); POTASSIUM 3.8 mmol/L (3.5-5.1); RED BLOOD COUNT 4.35 x10^6/uL (3.50-5.40); RED CELL DISTRIBUTION WIDTH 14.2 % (11.5-14.5); WHITE BLOOD COUNT 7.8 x10^3/uL (4.0-11.0)
[2019-01-24 08:46] VITALS: BP 136/68
[2019-01-24] MEDS: MONTELUKAST 10 MG TABLET. PO SCH (08:46)
[2019-01-24] MEDS: SERTRALINE 50 MG TABLET. PO SCH (08:46)
[2019-01-24] MEDS: POTASSIUM CHLORIDE 20 MEQ TABLET.ER. PO SCH (08:46)
[2019-01-24] MEDS: MAGNESIUM OXIDE 400 MG TABLET PO SCH (08:46)
[2019-01-24] MEDS: METOPROLOL TART IMMED RELEASE 50 MG TABLET PO SCH (08:46)
[2019-01-24] MEDS: ENOXAPARIN 40 MG/0.4 ML SYRINGE. SQ SCH (08:47)
[2019-01-24] MEDS ORDERED: FUROSEMIDE 40 MG TABLET PO SCH (09:00)
[2019-01-24] MEDS ORDERED: FURO-68 PO (14:42)
[2019-01-24] MEDS ORDERED: WARF-78 PO (14:42)
--- NOTE | 2019-01-24 16:55 | NUR ---
NSG NOTE; DISCHARGE VERBAL AND WRITTEN DISCHARGE INSTRUCTIONS GIVEN TO PT AND GRANDDAUGHTER WITH VERBAL UNDERSTANDING WRITTEN RX X2 GIVEN TO PT DISCHARGE TO HOME AT 1650 VIA AMB ACCOMP BY GRANDDAUGHTER
== END 2019-01-24 16:50 | disposition home health service (06) | DRG 922 ==
LOC: EEVIPCON 12:35 → ER 12:35 → 1 SOUTH 16:18
PROVIDERS: ADMIT Internal Medicine; ATTEND Internal Medicine
DX: T74.11XA Adult physical abuse, confirmed, initial encounter (principal); I50.33 Acute on chronic diastolic (congestive) heart failure; J96.01 Acute respiratory failure with hypoxia; I13.0 Hypertensive heart and chronic kidney disease with heart failure and stage 1 through stage 4 chronic kidney disease, or unspecified chronic kidney disease; Z04.71 Encounter for examination and observation following alleged adult physical abuse; I49.5 Sick sinus syndrome; N18.9 Chronic kidney disease, unspecified; E78.5 Hyperlipidemia, unspecified; F03.90 Unspecified dementia, unspecified severity, without behavioral disturbance, psychotic disturbance, mood disturbance, and anxiety; I25.10 Atherosclerotic heart disease of native coronary artery without angina pectoris; K21.9 Gastro-esophageal reflux disease without esophagitis; Z86.711 Personal history of pulmonary embolism; M19.90 Unspecified osteoarthritis, unspecified site; Z86.718 Personal history of other venous thrombosis and embolism; Z90.49 Acquired absence of other specified parts of digestive tract; Z90.710 Acquired absence of both cervix and uterus; Z91.19 Patient's noncompliance with other medical treatment and regimen; Z95.0 Presence of cardiac pacemaker; Z88.8 Allergy status to other drugs, medicaments and biological substances
CPT/HCPCS: 36415; 71275; 73590; 80048; 80053; 81001; 83735; 84484; 85025; 85027; 85610; 90471; 90686; 93005; J1650; Q9967; 97110; 97530; 99285-25

== ENCOUNTER 2019-08-09 14:45 | Inpatient (IN) | payer MEDICARE, OTHER ==
[~2019-08-09] VITALS: Ht 149.9 cm; Wt 47.8 kg
[~2019-08-09 14:45] MED LIST changes: +AMLO-187 PO; -AMLO10TA8 PO; -CETI10TA22 PO; +CETI10TA74 PO; +FURO-68 PO; +WARF5TAB2 PO
--- NOTE | 2019-08-09 15:10 | EKG ---
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
[2019-08-09 15:23] LABS: BASO % 0 % (0-3); CALCIUM 8.7 mg/dL (8.5-10.1); CREATININE 0.9 mg/dL (0.6-1.0); EOS # 0.2 x10^3/uL (0.0-0.7); EOS % 2 % (0-3); GFR 59.2; HEMATOCRIT 38.5 % (36.0-47.0); HEMOGLOBIN 12.7 g/dL (12.0-15.5); LYMPH # 1.2 x10^3/uL (1.0-4.8); LYMPH % 13 % (24-48); MEAN CORPUSCULAR HEMOGLOBIN 32 pg (25-35); MEAN CORPUSCULAR HGB CONC 33 g/dL (31-37); MEAN CORPUSCULAR VOLUME 96 fL (79-100); MONO # 0.8 x10^3/uL (0.0-1.1); MONO % 8 % (0-9); NEUT # 7.4 x10^3uL (1.8-7.7); NEUT % 77 % (31-73); PLATELET COUNT 202 x10^3/uL (140-400); POTASSIUM 3.4 mmol/L (3.5-5.1); RED BLOOD COUNT 4.01 x10^6/uL (3.50-5.40); RED CELL DISTRIBUTION WIDTH 13.4 % (11.5-14.5); WHITE BLOOD COUNT 9.6 x10^3/uL (4.0-11.0)
--- NOTE | 2019-08-09 15:28 | RAD ---
CT HEAD WO CONTRAST History: Altered mental status Comparison: August 08, 2018 Technique: Noncontrast CT imaging was performed of the head. Exposure: One or more of the following individualized dose reduction techniques were utilized for this examination: 1. Automated exposure control 2. Adjustment of the mA and/or kV according to patient size 3. Use of iterative reconstruction technique. Findings: No intracranial hemorrhage. No mass effect. No hydrocephalus. Mild brain parenchymal volume loss. Mild foci of decreased attenuation within the hemispheric white matter, most often due to chronic microvascular ischemia. Imaged orbits are unremarkable. Imaged paranasal sinuses and mastoid air cells are clear. No acute calvarial fracture. TMJ arthropathy. Impression: 1. No acute intracranial abnormality. Electronically signed by: Diogo Drake DO (08/09/2019 3:25 PM) [id number]
[2019-08-09 15:29] LABS: ALBUMIN 3.4 g/dL (3.4-5.0); TOTAL BILIRUBIN 0.3 mg/dL (0.2-1.0); TOTAL PROTEIN 6.9 g/dL (6.4-8.2)
[2019-08-09 16:14] LABS: BARBITURATES NEG (NEG); BENZODIAZEPINES NEG (NEG); CANNABINOIDS NEG (NEG); COCAINE NEG (NEG); METHADONE NEG (NEG); OPIATES NEG (NEG); PHENCYCLIDINE NEG (NEG)
[2019-08-09 16:15] LABS: AMPHETAMINE/METHAMPHETAMINE NEG (NEG)
[2019-08-09 16:17] LABS: BILIRUBIN,URINE NEG (NEG); CLARITY,URINE CLEAR; COLOR,URINE YELLOW; GLUCOSE,URINE NEG (NEG)
[2019-08-09 16:18] LABS: BACTERIA,URINE FEW /HPF (0-FEW); NITRITE,URINE NEG (NEG); SQUAMOUS EPITHELIAL CELL,UR FEW /LPF; UROBILINOGEN,URINE 0.2 mg/dL (0.2 mg/dL)
--- NOTE | 2019-08-09 17:02 | PHYS DOC ---
Past History Past Medical History: CAD, DVT, GERD, Hypertension Additional Past Medical Histor: chronic kidney disease, sick sinus syndrome Past Surgical History: Appendectomy, Hysterectomy, Oophorectomy, Pacemaker, Tonsillectomy Smoking: Non-smoker, Quit Greater Than 1 Year Alcohol Use: None Drug Use: None General Adult EDM: Chief Complaint: ALTERED MENTAL STATUS HPI: HPI: Patient is an 89-year-old female with a complicated social history presents out of fear for her safety at home and some altered mental status. According to the report that I received she is recently had a daughter who is her primary caregiver that from a heroin overdose. She is now living with a son who is also a drug addict. This morning the police arrested the son and sent the patient here for evaluation secondary to them being afraid of her living conditions and her safety. The patient is unable to provide any history secondary to altered mental status [] Review of Systems: Review of Systems: Patient is unable to provide review of systems secondary to dementia and altered mental status Heart Score: Risk Factors: Risk Factors: DM, Current or recent (<one month) smoker, HTN, HLP, family history of CAD, obesity. Risk Scores: Score 0 - 3: 2.5% MACE over next 6 weeks - Discharge Home Score 4 - 6: 20.3% MACE over next 6 weeks - Admit for Clinical Observation Score 7 - 10: 72.7% MACE over next 6 weeks - Early Invasive Strategies Allergies: Allergies: Allergies Coded Allergies Type Severity Reaction Last Updated Verified celecoxib Allergy Intermediate 04/28/14 Yes Physical Exam: PE: Constitutional: Well developed, well nourished, no acute distress, non-toxic appearance. [] HENT: Normocephalic, atraumatic, bilateral external ears normal, oropharynx moist, no oral exudates, nose normal. [] Eyes: PERRLA, EOMI, conjunctiva normal, no discharge. [] Neck: Normal range of motion, no tenderness, supple, no stridor. [] Cardiovascular:Heart rate regular rhythm, no murmur [] Lungs & Thorax: Bilateral breath sounds clear to auscultation [] Abdomen: Bowel sounds normal, soft, no tenderness, no masses, no pulsatile m asses. [] Skin: Warm, dry, no erythema, no rash. [] Back: No tenderness, no CVA tenderness. [] Extremities: No tenderness, no cyanosis, no clubbing, ROM intact, no edema. [] Neurologic: Alert and interactive but confused normal motor function, normal sensory function, no focal deficits noted. [] Psychologic: Anxious, asking about her daughter who has described above is . [] Current Patient Data: Labs: Laboratory Tests Test 08/09/19 14:55 08/09/19 15:48 White Blood Count 9.6 x10^3/uL (4.0-11.0) Red Blood Count 4.01 x10^6/uL (3.50-5.40) Hemoglobin 12.7 g/dL (12.0-15.5) Hematocrit 38.5 % (36.0-47.0) Mean Corpuscular Volume 96 fL (79-100) Mean Corpuscular Hemoglobin 32 pg (25-35) Mean Corpuscular Hemoglobin Concent 33 g/dL (31-37) Red Cell Distribution Width 13.4 % (11.5-14.5) Platelet Count 202 x10^3/uL (140-400) Neutrophils (%) (Auto) 77 % (31-73) H Lymphocytes (%) (Auto) 13 % (24-48) L Monocytes (%) (Auto) 8 % (0-9) Eosinophils (%) (Auto) 2 % (0-3) Basophils (%) (Auto) 0 % (0-3) Neutrophils # (Auto) 7.4 x10^3uL (1.8-7.7) Lymphocytes # (Auto) 1.2 x10^3/uL (1.0-4.8) Monocytes # (Auto) 0.8 x10^3/uL (0.0-1.1) Eosinophils # (Auto) 0.2 x10^3/uL (0.0-0.7) Basophils # (Auto) 0.0 x10^3/uL (0.0-0.2) Prothrombin Time 10.2 SEC (9.4-11.4) Prothrombin Time INR 1.0 (0.9-1.1) Sodium Level 145 mmol/L (136-145) Potassium Level 3.4 mmol/L (3.5-5.1) L Chloride Level 104 mmol/L (98-107) Carbon Dioxide Level 32 mmol/L (21-32) Anion Gap 9 (6-14) Blood Urea Nitrogen 14 mg/dL (7-20) Creatinine 0.9 mg/dL (0.6-1.0) Estimated GFR (Cockcroft-Gault) 59.2 BUN/Creatinine Ratio 16 (6-20) Glucose Level 121 mg/dL (70-99) H Calcium Level 8.7 mg/dL (8.5-10.1) Total Bilirubin 0.3 mg/dL (0.2-1.0) Aspartate Amino Transferase (AST) 21 U/L (15-37) Alanine Aminotransferase (ALT) 22 U/L (14-59) Alkaline Phosphatase 68 U/L (46-116) Troponin I Quantitative 0.026 ng/mL (0-0.055) Total Protein 6.9 g/dL (6.4-8.2) Albumin 3.4 g/dL (3.4-5.0) Albumin/Globulin Ratio 1.0 (1.0-1.7) Ethyl Alcohol Level < 10 mg/dL (0-10) Urine Collection Type Unknown Urine Color Yellow Urine Clarity Clear Urine pH 6.5 Urine Specific [place] 1.025 Urine Protein 30 mg/dl (NEG-TRACE) Urine Glucose (UA) Neg mg/dL (NEG) Urine Ketones (Stick) Neg mg/dL (NEG) Urine Blood Mod (NEG) Urine Nitrite Neg (NEG) Urine Bilirubin Neg (NEG) Urine Urobilinogen Dipstick 0.2 mg/dL (0.2 mg/dL) Urine Leukocyte Esterase Neg (NEG) Urine RBC 3-5 /HPF (0-2) Urine WBC 1-4 /HPF (0-4) Urine Squamous Epithelial Cells Few /LPF Urine Bacteria Few /HPF (0-FEW) Urine Opiates Screen Neg (NEG) Urine Methadone Screen Neg (NEG) Urine Barbiturates Neg (NEG) Urine Phencyclidine Screen Neg (NEG) Urine Amphetamine/Methamphetamine Neg (NEG) Urine Benzodiazepines Screen Neg (NEG) Urine Cocaine Screen Neg (NEG) Urine Cannabinoids Screen Neg (NEG) Urine Ethyl Alcohol Neg (NEG) Vital Signs: Vital Signs Date Time Temp Pulse Resp B/P (MAP) Pulse Ox O2 Delivery O2 Flow Rate FiO2 08/09/19 15:11 98.1 74 20 158/78 (104) 99 Room Air EKG: EKG: [] Radiology/Procedures: Radiology/Procedures: [] Course & Med Decision Making: Course & Med Decision Making Pertinent Labs and Imaging studies reviewed. (See chart for details) [ED course: Evaluation reveals an 89-year-old female who is altered. Medical evaluation is essentially unrevealing with the exception of a slightly elevated troponin. I spoke with Dr. Galeano who is agreed to accept the patient for admission. The symptoms are likely related to dementia and she will need long- term placement after hospitalization.] Dragon Disclaimer: Dragon Disclaimer: This electronic medical record was generated, in whole or in part, using a voice recognition dictation system. Departure Departure: Impression: Primary Impression: Altered mental status Qualified Codes: R41.82 - Altered mental status, unspecified Disposition: ADMITTED INPATIENT Admitting Physician: Enrique Galeano Condition: STABLE Referrals: RAJ BENITEZ (PCP) GIOVANNA VELAZQUEZ DO Aug 09, 2019 17:02
[2019-08-09 18:01] VITALS: BP 183/84
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
[2019-08-09] MEDS: ACETAMINOPHEN 325 MG TABLET PO PRN (18:42)
[2019-08-09] MEDS: IV NORMAL SALINE 1,000ML 1,000 ML IV SCH (18:43)
--- NOTE | 2019-08-09 18:51 | NUR ---
patient reports headache. Given PRN tylenol per order. Will continue to monitor.
[2019-08-09 19:25] VITALS: BP 169/79
[2019-08-09 22:22] VITALS: BP 138/65
[2019-08-09] MEDS ORDERED: TRAZ-120 PO (23:22)
[2019-08-09] MEDS ORDERED: DONE10TA7 PO (23:22)
[2019-08-09] MEDS ORDERED: FURO40TA4 PO (23:22)
[2019-08-10] MEDS: IV NORMAL SALINE 1,000ML 1,000 ML IV SCH (01:43)
--- NOTE | 2019-08-10 03:45 | NUR ---
Pt up often during the night to void, only needing stand-by assist when ambulating. Pt is pleasantly forgetful and often confused about the current situation, frequently asking "where am I or why am I here?" Pt stated that she lives alone and that her of 20 years recently . Pt often asked staff if her grand-daughter brought her here for lab work. Pt has not mentioned having dogs at home like to previous shift staff. Pt is very poor historian on what medications she is to be taking, bag of home medications here but also has daughters Gabapentin and some unknown persons Lactobacillus. Pt given box lunch per request, ate over 50% of meal independently. Ivonne Aceves (Social service CM at [phone]) is attempting to get emergency guardianship over pt.
[2019-08-10 05:11] VITALS: BP 161/76
[2019-08-10 05:58] LABS: BASO % 0 % (0-3); EOS # 0.2 x10^3/uL (0.0-0.7); EOS % 2 % (0-3); HEMATOCRIT 35.8 % (36.0-47.0); HEMOGLOBIN 11.6 g/dL (12.0-15.5); LYMPH # 1.5 x10^3/uL (1.0-4.8); LYMPH % 17 % (24-48); MEAN CORPUSCULAR HEMOGLOBIN 31 pg (25-35); MEAN CORPUSCULAR HGB CONC 32 g/dL (31-37); MEAN CORPUSCULAR VOLUME 96 fL (79-100); MONO # 0.6 x10^3/uL (0.0-1.1); MONO % 7 % (0-9); NEUT # 6.4 x10^3uL (1.8-7.7); NEUT % 74 % (31-73); PLATELET COUNT 203 x10^3/uL (140-400); RED BLOOD COUNT 3.72 x10^6/uL (3.50-5.40); RED CELL DISTRIBUTION WIDTH 13.4 % (11.5-14.5); WHITE BLOOD COUNT 8.6 x10^3/uL (4.0-11.0)
[2019-08-10 06:16] LABS: ALBUMIN/GLOBULIN RATIO 0.9 (1.0-1.7); CALCIUM 8.1 mg/dL (8.5-10.1); CREATININE 0.8 mg/dL (0.6-1.0); GFR 67.8; POTASSIUM 3.2 mmol/L (3.5-5.1); TOTAL BILIRUBIN 0.3 mg/dL (0.2-1.0); TOTAL PROTEIN 6.2 g/dL (6.4-8.2)
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
[2019-08-10] MEDS: ACETAMINOPHEN 325 MG TABLET PO PRN (08:33)
[2019-08-10 10:01] VITALS: BP 119/68
[2019-08-10 10:56] VITALS: BP 153/65
[2019-08-10 15:11] VITALS: BP 148/73
--- NOTE | 2019-08-10 17:26 | NUR ---
Pt in chair in hallway for most of shift. Pt anxious about where her is and wants to go home to . Medicated for anxiety PRN x2. Pt continent throughout shift and able to ambulate with minimum stand-by assist.
[2019-08-10 19:22] VITALS: BP 164/87
[2019-08-10] MEDS: traZODone 50 MG TABLET. PO SCH (19:50)
[2019-08-10] MEDS: POTASSIUM CHLORIDE 20 MEQ TABLET.ER. PO SCH (19:51)
[2019-08-10] MEDS: ATORVASTATIN CALCIUM 20 MG TABLET PO SCH (19:51)
[2019-08-10] MEDS: DONEPEZIL HCL 10 MG TABLET PO SCH (19:51)
--- NOTE | 2019-08-10 20:55 | NUR ---
Patient very anxious, impulsive. Continues to jump out of chair at nurses station area and ambulating in hallway "Looking for Bill." Patient stumbles at times during nurse assisted ambulation around unit. Patient disconnects self from personal alarm at times and getting up. Call to Dr. Froylan ratliff for 1:1 per supervisor prep.
--- NOTE | 2019-08-10 20:56 | NUR ---
Call returned from Dr. Galeano, order for 1:1 received. COTTON BALL BAGGER walking Patient in hallway at this time as Patient continues to "Look for Bill!"
[2019-08-10] MEDS ORDERED: POTASSIUM CHLORIDE 20 MEQ PO SCH (21:00)
[2019-08-10 22:33] VITALS: BP 160/72
[2019-08-11 05:46] VITALS: BP 152/76
[2019-08-11 05:58] LABS: BASO % 0 % (0-3); EOS # 0.1 x10^3/uL (0.0-0.7); EOS % 2 % (0-3); HEMATOCRIT 35.1 % (36.0-47.0); HEMOGLOBIN 11.5 g/dL (12.0-15.5); LYMPH % 11 % (24-48); MEAN CORPUSCULAR HEMOGLOBIN 32 pg (25-35); MEAN CORPUSCULAR HGB CONC 33 g/dL (31-37); MEAN CORPUSCULAR VOLUME 96 fL (79-100); MONO # 0.6 x10^3/uL (0.0-1.1); MONO % 7 % (0-9); NEUT # 6.8 x10^3uL (1.8-7.7); NEUT % 79 % (31-73); PLATELET COUNT 183 x10^3/uL (140-400); RED BLOOD COUNT 3.66 x10^6/uL (3.50-5.40); RED CELL DISTRIBUTION WIDTH 13.3 % (11.5-14.5); WHITE BLOOD COUNT 8.5 x10^3/uL (4.0-11.0)
[2019-08-11 06:05] LABS: ALBUMIN 2.8 g/dL (3.4-5.0); ALBUMIN/GLOBULIN RATIO 0.9 (1.0-1.7); CALCIUM 8.4 mg/dL (8.5-10.1); CREATININE 0.8 mg/dL (0.6-1.0); GFR 67.8; POTASSIUM 3.2 mmol/L (3.5-5.1); TOTAL BILIRUBIN 0.6 mg/dL (0.2-1.0); TOTAL PROTEIN 5.9 g/dL (6.4-8.2)
[2019-08-11] MEDS: SERTRALINE 50 MG TABLET. PO SCH (07:52)
[2019-08-11] MEDS: POTASSIUM CHLORIDE 20 MEQ TABLET.ER. PO SCH ×2 (07:52→22:06)
[2019-08-11] MEDS: LOSARTAN 50 MG TABLET. PO SCH (07:52)
[2019-08-11] MEDS ORDERED: VALSARTAN 320 MG PO SCH (09:00)
[2019-08-11] MEDS ORDERED: ATORVASTATIN CALCIUM 40 MG PO SCH (09:00)
--- NOTE | 2019-08-11 10:17 | PN ---
DATE: 08/11/2019 ATTENDING PHYSICIAN: Dr. Chu. SUBJECTIVE: Pleasantly confused, calm. She is out in the hallway, so we can keep an eye on her. She is not agitated. There is no obvious respiratory distress. OBJECTIVE FINDINGS: VITAL SIGNS: Her blood pressure today is 152/76, pulse is 74 and regular, temperature 98.3 degrees Fahrenheit. Her oxygen saturation 95% on room air. HEENT: The head is without trauma. Pupils are reactive. Sclerae are nonicteric. Oropharynx clear. NECK: Supple, no bruits. LUNGS: Minimal dry crackles at the right base. CARDIOVASCULAR: Showed distant heart tones. No gallops. Peripheral pulses palpable and full. ABDOMEN: Obese, protuberant. No organomegaly. EXTREMITIES: Showed no cyanosis or edema. NEUROLOGIC FINDINGS: Focally intact. She is disoriented. She has no insight. ASSESSMENT: 1. An 89-year-old female with altered mentation, improving back to baseline. 2. Profound dementia, chronic and longstanding. 3. History of heart failure, compensated. 4. Permanent pacemaker due to sick sinus syndrome. 5. Essential hypertension. PLAN: 1. Diet as tolerated. 2. We are working on placement at a higher level of care at a local long-term. 3. Meds reviewed. JANINA CHU MD DR: OZZIE/dario JOB#: [id number] / [id number]
[2019-08-11 10:56] VITALS: BP 129/70
[2019-08-11] MEDS: NEOMYC/POLYMYXN/GRAMICDN OPHTH SOLUTION 10ML BOTTLE. OU SCH ×2 (12:21→22:09)
[2019-08-11 15:12] VITALS: BP 168/84
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
--- NOTE | 2019-08-11 16:25 | NUR ---
NURSING NOTE THIS RN RECEIVED A PHONE CALL FROM [facility] AND GOT INFORMED THAT PATIENT HAS A NEW LEGAL GUARDIAN, TALYA AVILA, HIS PHONE NUMBER IS [phone]
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
--- NOTE | 2019-08-11 16:54 | NUR ---
NSG NOTE; PAPER COPY OF TEMPORARY GUARDIANSHIP AND CONSERVATORSHIP OBTAINED FROM [facility] WITH APS APPOINTING TALYA AVILA PLACED IN PT'S PAPER CHART
[2019-08-11 20:00] VITALS: BP 153/76
[2019-08-11] MEDS: ATORVASTATIN CALCIUM 20 MG TABLET PO SCH (22:05)
[2019-08-11] MEDS: traZODone 50 MG TABLET. PO SCH (22:06)
[2019-08-11] MEDS: DONEPEZIL HCL 10 MG TABLET PO SCH (22:06)
[2019-08-11 22:51] VITALS: BP 134/70
[2019-08-12 05:20] VITALS: BP 138/69
[2019-08-12] MEDS: LOSARTAN 50 MG TABLET. PO SCH (08:49)
[2019-08-12] MEDS: SERTRALINE 50 MG TABLET. PO SCH (08:49)
[2019-08-12] MEDS: POTASSIUM CHLORIDE 20 MEQ TABLET.ER. PO SCH ×2 (08:49→20:42)
[2019-08-12] MEDS: NEOMYC/POLYMYXN/GRAMICDN OPHTH SOLUTION 10ML BOTTLE. OU SCH ×2 (08:50→20:41)
--- NOTE | 2019-08-12 09:00 | PN ---
DATE: 08/12/2019 ATTENDING PHYSICIAN: Dr. Chu. SUBJECTIVE: No new complaints. She is quite forgetful. She tends to wander. We have ordered a one-on-one sitter for patient's safety issues. She has no obvious noticeable distress. OBJECTIVE FINDINGS: VITAL SIGNS: Her blood pressure today is 138/69, her pulse is 83 and regular, her temperature 98.2 degrees Fahrenheit, and her oxygen saturations are 93% on room air. HEENT: Head is without trauma. Pupils are reactive. Sclerae nonicteric. Oropharynx is clear. NECK: Supple, no bruits. LUNGS: Otherwise clear. CARDIOVASCULAR: Showed regular heart tones. Soft grade 2/6 early systolic ejection murmur, best heard at the left sternal border, murmur does not radiate. ABDOMEN: Soft, nontender to palpation. No masses. EXTREMITIES: Showed no cyanosis or edema. NEUROLOGIC: Profound dementia with minimal agitation. ASSESSMENT: 1. An 89-year-old female with profound altered mentation, improved, back to baseline. 2. Underlying dementia, chronic and longstanding. 3. Remote history of heart failure, compensated. 4. Permanent pacemaker due to sick sinus syndrome. 5. Essential hypertension, currently normotensive. PLAN: 1. Diet as tolerated. 2. We are working on placement. She may be a candidate for the Senior diagnostic unit. 3. Meds reviewed. JANINA CHU MD DR: OZZIE/dario JOB#: [id number] / [id number]
[2019-08-12 15:47] VITALS: BP 164/77
[2019-08-12 19:22] VITALS: BP 171/90
[2019-08-12] MEDS: ATORVASTATIN CALCIUM 20 MG TABLET PO SCH (20:42)
[2019-08-12] MEDS: traZODone 50 MG TABLET. PO SCH (20:42)
[2019-08-12] MEDS: DONEPEZIL HCL 10 MG TABLET PO SCH (20:42)
[2019-08-12 23:24] VITALS: BP 154/62
[2019-08-13] VITALS (7 sets, daily range): BP systolic 114–164; BP diastolic 59–87
--- NOTE | 2019-08-13 01:33 | NUR ---
Pt sat up in bed, c/o "chest pain," while holding sternal area. Pain does not radiate; feels like "burning." Pt states she has heartburn occasionally and this feels similar. Vital signs assessed. Water and saltine crackers given. After about 3 minutes pt told this nurse she felt "much better." No dizziness, nausea, numbness or tingling present. Will continue to monitor.
[2019-08-13] MEDS ORDERED: CALCIUM CARBONATE 500 MG TAB.CHEW PO PRN (03:15)
--- NOTE | 2019-08-13 05:23 | NUR ---
Patient pleasant, forgetful. Frequently trying to get out of bed, so she spent some time at beginning of shift in the hallway next to nurses station, coloring. Woke up a couple of times in the night, complaining of chest pain, or "indigestion". VSS remained stable, and symptoms improved after snack and raising HOB. Stand-by assist to ambulate, up several times to use the bathroom throughout the night. Patient denies any pain or discomfort. Will continue to monitor.
[2019-08-13] MEDS ORDERED: ACETAMINOPHEN 325 MG TABLET PO PRN (07:00)
[2019-08-13] MEDS: LOSARTAN 50 MG TABLET. PO SCH ×2 (07:54→20:07)
[2019-08-13] MEDS: NEOMYC/POLYMYXN/GRAMICDN OPHTH SOLUTION 10ML BOTTLE. OU SCH ×2 (07:55→20:04)
[2019-08-13] MEDS: SERTRALINE 50 MG TABLET. PO SCH ×2 (07:55→20:06)
[2019-08-13] MEDS: POTASSIUM CHLORIDE 20 MEQ TABLET.ER. PO SCH ×2 (07:55→20:06)
--- NOTE | 2019-08-13 11:07 | PN ---
DATE: 08/13/2019 SUBJECTIVE: The patient is calm. She had a good morning, she went to the shower. She had breakfast. OBJECTIVE FINDINGS: VITAL SIGNS: Her temperature is 98.3 degrees Fahrenheit, blood pressure is 155/80, pulse is 79 and regular, her oxygen saturations are 94% on room air. HEENT: Head is without trauma. Pupils are reactive. Sclerae nonicteric. Oropharynx clear. NECK: Supple. LUNGS: Clear. CARDIOVASCULAR: Showed regular heart tones. ABDOMEN: Soft. EXTREMITIES: Show no edema. NEUROLOGIC: Profoundly confused and disoriented. ASSESSMENT: 1. This 89-year-old female had altered mentation, back to her baseline. 2. Profound dementia, chronic and longstanding. 3. Remote history of heart failure, compensated. 4. Permanent pacemaker due to sick sinus syndrome. 5. Essential hypertension. PLAN: 1. Diet as tolerated. 2. We are working on placement. She may be a candidate for Senior diagnostic unit. We will have Dr. Fu see her. 3. Meds reviewed. JANINA CHU MD DR: OZZIE/dario JOB#: [id number] / [id number]
[2019-08-13] MEDS: DONEPEZIL HCL 10 MG TABLET PO SCH (20:05)
[2019-08-13] MEDS: ATORVASTATIN CALCIUM 20 MG TABLET PO SCH (20:05)
[2019-08-13] MEDS: traZODone 50 MG TABLET. PO SCH (20:06)
[2019-08-14 00:23] VITALS: BP 164/78
--- NOTE | 2019-08-14 05:27 | NUR ---
Patient pleasant, forgetful. Spent some time in chair by the nurses station before going to bed for the night. Stand-by assist to ambulate, up several times to use the bathroom throughout the night. Patient denies any pain or discomfort. Will continue to monitor.
[2019-08-14 05:44] VITALS: BP 151/68
[2019-08-14] MEDS: POTASSIUM CHLORIDE 20 MEQ TABLET.ER. PO SCH (09:00)
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
--- NOTE | 2019-08-14 13:01 | NUR ---
Nursing note. Called report to Jacques at [facility]. Informed of patient mental status. Patient is calm, cooperative and pleasant. Recieved verbal order for 50 mg of Losartan for blood pressure. Patient identifies belongings of nightgown, shirt, black pants, picture frame with picture and small photo album, and winter coat. Patient is dressed and has rings on fingers. Talked with patient about transfer of care. Patient does not have any questions. Gaetano Wan RN
[2019-08-14 13:10] VITALS: BP 178/97
--- NOTE | 2019-08-14 13:45 | NUR ---
NURSING NOTE DISCHARGE PT DISCHARGED TO CUSTODIAL FACILITY, REPORT CALLED, VIA TRANSPORTATION. WRITTEN AND VERBAL DISCHARGE INSTRUCTIONS GIVEN TO PT. COPY OF CHART/PACKET SENT WITH TRANSPORT TEAM TO TAKE TO FACILITY. NO COMPLICATIONS. KAY CHILDS.
[2019-08-29] MEDS ORDERED: LORA0.5T21 PO (17:12)
[2019-09-20] MEDS ORDERED: OLAN5TAB99 PO (23:29)
== END 2019-08-14 13:47 | DRG 71 ==
LOC: ER 14:45 → 1 SOUTH 16:57
PROVIDERS: ADMIT Hospitalist; ATTEND Hospitalist
DX: G93.41 Metabolic encephalopathy (principal); I13.0 Hypertensive heart and chronic kidney disease with heart failure and stage 1 through stage 4 chronic kidney disease, or unspecified chronic kidney disease; I50.22 Chronic systolic (congestive) heart failure; F03.90 Unspecified dementia, unspecified severity, without behavioral disturbance, psychotic disturbance, mood disturbance, and anxiety; K21.9 Gastro-esophageal reflux disease without esophagitis; I25.10 Atherosclerotic heart disease of native coronary artery without angina pectoris; I49.5 Sick sinus syndrome; N18.9 Chronic kidney disease, unspecified; Z87.891 Personal history of nicotine dependence; Z90.49 Acquired absence of other specified parts of digestive tract; Z90.710 Acquired absence of both cervix and uterus; Z86.718 Personal history of other venous thrombosis and embolism; Z79.01 Long term (current) use of anticoagulants
CPT/HCPCS: 36415; 70450; 80053; 80307; 81001; 84484; 85025; 85610; 87635; 93005; G0480; J2060; 97110; 99285-25; J7030

== ENCOUNTER 2019-08-29 13:25 | Inpatient (IN) | payer MEDICARE, OTHER ==
[~2019-08-29] VITALS: Ht 144.8 cm; Wt 51.9 kg
[~2019-08-29 13:25] MED LIST changes: -AMLO-187 PO; +AMLO10TA8 PO; +CETI10TA24 PO; -CETI10TA74 PO; +DONE10TA7 PO; +FURO40TA4 PO; +TRAZ-120 PO
[2019-08-29 13:57] LABS: BASO % 0 % (0-3); EOS # 0.2 x10^3/uL (0.0-0.7); EOS % 2 % (0-3); HEMATOCRIT 40.2 % (36.0-47.0); HEMOGLOBIN 13.4 g/dL (12.0-15.5); LYMPH # 1.1 x10^3/uL (1.0-4.8); LYMPH % 13 % (24-48); MEAN CORPUSCULAR HEMOGLOBIN 32 pg (25-35); MEAN CORPUSCULAR HGB CONC 33 g/dL (31-37); MEAN CORPUSCULAR VOLUME 96 fL (79-100); MONO # 0.6 x10^3/uL (0.0-1.1); MONO % 7 % (0-9); NEUT # 6.6 x10^3uL (1.8-7.7); NEUT % 78 % (31-73); PLATELET COUNT 191 x10^3/uL (140-400); RED BLOOD COUNT 4.21 x10^6/uL (3.50-5.40); RED CELL DISTRIBUTION WIDTH 13.4 % (11.5-14.5); WHITE BLOOD COUNT 8.4 x10^3/uL (4.0-11.0)
--- NOTE | 2019-08-29 14:01 | RAD ---
EXAM: CHEST AP ONLY 08/29/2019 1:28 PM CLINICAL INDICATION:Altered mental status COMPARISON:Chest radiograph 10/27/[address] chest 07/29/2018 TECHNIQUE:AP upright chest radiograph FINDINGS:A dual-lead pacemaker is unchanged. The heart remains enlarged. Central pulmonary arteries are mildly enlarged, unchanged. There is mild interstitial prominence. No focal consolidation, pleural effusion, or pneumothorax. No acute osseous abnormality. IMPRESSION: 1. Cardiomegaly. 2. Enlarged central pulmonary arteries, which can be seen with pulmonary arterial hypertension. Electronically signed by: Jesenia Mendoza MD (08/29/2019 1:58 PM) [id number]
[2019-08-29 14:11] LABS: AMPHETAMINE/METHAMPHETAMINE NEG (NEG); BACTERIA,URINE 0 /HPF (0-FEW); BARBITURATES NEG (NEG); BENZODIAZEPINES NEG (NEG); BILIRUBIN,URINE NEG (NEG); CANNABINOIDS NEG (NEG); CLARITY,URINE CLEAR; COCAINE NEG (NEG); COLOR,URINE YELLOW; GLUCOSE,URINE NEG (NEG); METHADONE NEG (NEG); NITRITE,URINE NEG (NEG); OPIATES NEG (NEG); PHENCYCLIDINE NEG (NEG); RBC,URINE OCC /HPF (0-2); SQUAMOUS EPITHELIAL CELL,UR FEW /LPF; UROBILINOGEN,URINE 0.2 mg/dL (0.2 mg/dL); WBC,URINE OCC /HPF (0-4)
[2019-08-29 14:52] LABS: CALCIUM 9.5 mg/dL (8.5-10.1); CREATININE 1.3 mg/dL (0.6-1.0); GFR 38.7; POTASSIUM 4.3 mmol/L (3.5-5.1)
[2019-08-29 14:58] LABS: ALBUMIN 3.7 g/dL (3.4-5.0); TOTAL BILIRUBIN 0.5 mg/dL (0.2-1.0); TOTAL PROTEIN 7.4 g/dL (6.4-8.2)
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
[2019-08-29 16:18] VITALS: BP 167/84
--- NOTE | 2019-08-29 16:22 | EKG ---
[address] [address] Test Date: 2019-08-29 Test Time: 13:45:16 Pat Name: SUKHWINDER NAVAS Department: Room: [address] [place] [address] Gender: F Tire Wrapper: : [id number] Requested By: GIOVANNA VELAZQUEZ Order Number: [id number] Reading MD: Bhanu Hanley Measurements Intervals [place] Rate: 66 P: 26 [place]: 260 QRS: -59 QRSD: 178 T: 92 QT: 444 QTc: 467 Interpretive Statements ATRIAL SENSED VENTRICULAR PACED RHYTHM Electronically Signed On 08-30-2019 8:06:20 CDT by Bhanu Hanley
[2019-08-29] MEDS ORDERED: MAGNESIUM HYDROXIDE 2,400 MG/30 ML ORAL.SUSP. PO PRN (16:45)
[2019-08-29] MEDS ORDERED: METHYL SALICYLATE/MENTHOL TOPICAL OINTMENT 57GM TUBE. TP PRN (16:45)
[2019-08-29] MEDS ORDERED: MAG HYDROX/AL HYDROX/SIMETH 30 ML ORAL.SUSP PO PRN (16:45)
[2019-08-29] MEDS ORDERED: LORA0.5T96 PO (17:12)
[2019-08-29] MEDS ORDERED: QUET25TA5 PO ×2 (17:12)
[2019-08-29] MEDS ORDERED: LOSA100T14 PO (17:12)
[2019-08-29] MEDS ORDERED: ACET325T21 PO (17:12)
[2019-08-29] MEDS ORDERED: ACETAMINOPHEN 325 MG TABLET PO PRN (17:15)
[2019-08-29] MEDS ORDERED: QUEtiapine 25 MG TABLET. PO PRN (17:15)
[2019-08-29] MEDS: QUEtiapine 25 MG TABLET. PO SCH (19:44)
[2019-08-29] MEDS: DONEPEZIL HCL 10 MG TABLET PO SCH (19:45)
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
[2019-08-30 00:06] LABS: THYROXINE 6.2 ug/dL (4.5-12.0)
[2019-08-30 01:06] LABS: HEMOGLOBIN A1C 5.6 % (4.8-5.6)
[2019-08-30 06:47] VITALS: BP 110/68
[2019-08-30] MEDS: SERTRALINE 50 MG TABLET. PO SCH (09:00)
[2019-08-30 14:07] LABS: THYROID STIM HORMONE (TSH) 3.756 uIU/mL (0.358-3.740)
[2019-08-30] MEDS: LORazepam 0.5 MG TABLET PO PRN (14:28)
[2019-08-30 16:03] VITALS: BP 154/88
[2019-08-30] MEDS: LOSARTAN 50 MG TABLET. PO SCH (18:16)
[2019-08-30] MEDS: QUEtiapine 25 MG TABLET. PO SCH (21:15)
[2019-08-30] MEDS: DONEPEZIL HCL 10 MG TABLET PO SCH (21:15)
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
--- NOTE | 2019-08-30 22:13 | HP ---
ADMIT DATE: 08/29/2019 PSYCHIATRIC ADMISSION HISTORY/EVALUATION This is a late entry, date of service 08/29/2019, covers elements not covered in my initial note. I met with the patient evening of 08/29/2019 via Telehealth services for this evaluation. IDENTIFYING DATA: The patient is an 89-year-old female referred to us from [facility] by Dr. Ronni Wan, her primary care physician on account of worsening confusion, agitation, mood lability. The patient eloped from the nursing facility twice. She was agitated, very confused, anxious, suspicious. She believed that her spouse is still alive. She has been restless, fidgety, symptoms and confusion are much worse in the evening with sundowning. She has failed outpatient psychiatric interventions. Her behaviors have been deemed dangerous and unmanageable resulting in this referral, having failed outpatient psychiatric intervention. CHIEF COMPLAINT: "I came here 2 days back." HISTORY OF PRESENT ILLNESS: The patient has history of dementia, Alzheimer's, vascular with delusion, depression, behavioral disturbance. She is being admitted by her court-appointed guardian, Leighton Mai. Prior to coming to the nursing facility, the patient was at home with her son-in-law. Reportedly, police had raided the home and found drugs. The patient has a history of dementia, Alzheimer's, vascular type. She has been residing at the above nursing facility for some time, but behaviors have been dangerous with worsening confusion as noted. No clear history of bipolar disorder, suicidal or homicidal ideation. PAST PSYCHIATRIC HISTORY: As above. MEDICAL HISTORY: Positive for hypertension, heart disease, GERD, chronic kidney disease, pacemaker in place, chronic embolism. ACCU-CHEKS: Not applicable. DIET: Regular. Takes medications whole, ambulates independently. CODE STATUS: Full code. ALLERGIES: CELEBREX. CURRENT PSYCHOTROPICS: Aricept 10 mg at bedtime, Ativan 0.25 mg q.6 hours p.r.n. anxiety, Seroquel 25 mg at bedtime and 12.5 mg q.4 hours p.r.n. psychosis, Zoloft 50 mg a day. FAMILY HISTORY: Noncontributory. SOCIAL HISTORY: No alcohol or drug abuse, physical, sexual or elder abuse history is noted. She is not known to be a perpetrator. REACTION TO HOSPITALIZATION: The patient oblivious of this. ASSETS: Supportive living at the above facility. MENTAL STATUS EXAMINATION: The patient was seen individually evening of 08/29/2019 on Telehealth services. She is anxious, restless, paranoid, unaware of the year as I questioned her or the name of the president, "why do you keep asking me these questions? Go away." Insight, judgment, recent and remote memory, attention, concentration, fund of knowledge poor, consistent with her diagnosis. LABORATORY DATA: Reviewed. IMPRESSION: Major neurocognitive disorder, Alzheimer, vascular with delusion, depression, behavioral disturbance; anxiety disorder, unspecified; impulse control disorder, unspecified. Rest as above. PLAN: Admit to Geropsychiatry Unit at [facility]. I will see the patient daily individually from a psychiatric standpoint. Medical followup with Dr. Magana. Continue the patient on her current psychotropics. Consider changing Seroquel p.r.n. to Zyprexa p.r.n. and adjusting the Zoloft. We will make all these decisions post baseline assessment. ESTIMATED LENGTH OF STAY: 10-12 days. DISPOSITION: Plans back to alf when stable. JAMARCUS CONNELL MD DR: ASHVIN/dario JOB#: [id number] / [id number]
--- NOTE | 2019-08-31 00:55 | CONS ---
DATE OF CONSULTATION: 08/30/2019 REASON FOR CONSULTATION: Medical management. HISTORY OF PRESENT ILLNESS: The patient is an 89-year-old female patient, a resident at [facility] in [place], who was admitted on account of elopement off probably x 2 being agitated, very confused, anxious, suspicious and firmly believing that her spouse is still alive, refused to accept that her daughter has or she lost her house. She is very restless, fidgety and has sundowning, all this in a background of major neurocognitive disorder, vascular Alzheimer with delusion, depression, behavior disorder, anxiety and impulse control disorder. PAST MEDICAL HISTORY: Significant for coronary artery disease, hypertension, hyperlipidemia, sick sinus syndrome for which she is status post permanent pacemaker placement, gastroesophageal reflux disease, chronic kidney disease, bronchial asthma and history of deep vein thrombosis. PAST SURGICAL HISTORY: Significant for vein stripping, total abdominal hysterectomy and bilateral salpingo-oophorectomy, appendectomy, tonsillectomy, permanent pacemaker implantation and colonoscopy. ALLERGIES: SHE IS ALLERGIC TO CELEBREX. FAMILY HISTORY: Unremarkable. SOCIAL HISTORY: She is . Her 3 years ago. She was living with her daughter who herself in turn was . The patient is currently residing at [facility] in [place]. She does not smoke, drink alcohol or use recreational drugs. MEDICATIONS: She is currently on following medications: She is on Aricept 10 mg at bedtime, losartan, potassium 100 mg daily, Tylenol 650 mg every 6 hours, sertraline 50 mg daily, quetiapine fumarate 25 mg at bedtime, Seroquel 12.5 mg every 4 hours, and lorazepam 0.25 mg q. 6 hourly p.r.n. PHYSICAL EXAMINATION: GENERAL: On examining her, she looked well and was clearly in no apparent respiratory distress. No pallor, jaundice, cyanosis or thyromegaly. No jugular venous distention. No limb edema. VITAL SIGNS: Her heart rate was 79, blood pressure 154/88, temperature was 97.6, respiratory rate was 18 and oxygen saturation was 94% on room air. HEAD, EYES, EARS, NOSE AND THROAT: Showed she is normocephalic, atraumatic. NECK: Supple. HEART: Showed normal first and second heart sounds. No gallop, rub or murmur. CHEST: Clear to auscultation. No crepitation or rhonchi. ABDOMEN: Distended, soft, nontender. NEUROLOGIC: She was awake, alert. All her cranial nerves are intact. EXTREMITIES: She moves her extremities without difficulty. She ambulates without assistance or assistive devices. LABORATORY DATA: Showed a white cell count of 8400, hemoglobin 13, hematocrit 40, MCV 96, and platelet count of 191,000. Her chemistry showed a serum sodium 138, potassium 4.3, chloride 97, bicarbonate 32, anion gap of 9, BUN 22, creatinine 1.3, estimated GFR was 38 mL per minute. Her glucose 120, calcium was 9.5, magnesium was 1.7. Total bilirubin, AST, ALT, alkaline phosphatase were normal. Total protein was 7.4, albumin was 3.7. Her prothrombin time and INR were normal. Urinalysis was essentially unremarkable and toxic screen was negative. Her treponema pallidum antibodies were nonreactive. IMPRESSION: In summary, this is an 89-year-old female patient, a resident at [facility] in [place], who was admitted on account of eloping out of the property twice. She has been agitated, very confused, anxious, suspicious, thinks that her spouse is still alive as well as her daughter. She is very restless, fidgety and sundowning, all this in a background of major neurocognitive disorder, vascular Alzheimer with delusion, depression. She has also anxiety disorder and impulse control disorder. Medically, the patient has multitude of medical problems including hypertension, coronary artery disease, chronic kidney disease, gastroesophageal reflux disease, and history of DVT and atrial fibrillation. She was actually on Coumadin before and she is no longer on that probably this is given her age and she might be high risk for fall; however, all in all, the patient seems to be medically stable. Her white cell count, hemoglobin, hematocrit and platelets are all within normal range. Her kidney function shows she probably has stage 4 chronic kidney disease, but otherwise she is medically stable. I would continue all her current medications and we will follow her closely. Thank you, Dr. Fu for allowing me to participate in the care of this patient. JAMES SALMERON MD DR: YESY/dario JOB#: [id number] / [id number]
--- NOTE | 2019-08-31 04:06 | PN ---
DATE: 08/30/2019 PSYCHIATRIC PROGRESS NOTE This note covers elements not covered in my initial note, 08/30/2019. SUBJECTIVE: I met with the patient individually evening of 08/30/2019. Per KAY Simental, the patient slept 6-3/4 hours previous night. The patient has been anxious, restless, agitated "like a pistol" per nursing report. She is repeatedly telling the nursing staff that she wants to make phone calls because she was brought here by mistake. Received Ativan 0.25 mg p.r.n. REVIEW OF SYSTEMS: No CV, , pulmonary, eye, ENT system symptoms on review. MENTAL STATUS EXAM: Oriented to herself. Insight, judgment, recent and remote memory, attention, concentration, fund of knowledge poor, consistent with her diagnoses. IMPRESSION: Major neurocognitive disorder; Alzheimer; vascular with delusion; depression; behavioral disturbance; anxiety disorder, unspecified; impulse control disorder, unspecified. Rest unchanged. PLAN: Change the p.r.n. Seroquel to Zyprexa 2.5 mg q. 2 hours p.r.n. psychosis, agitation, max 7.5 mg in 24 hours. Increase Zoloft from 50 mg a day to 75 mg a day. Continue Ativan p.r.n. Rest unchanged for now. MAN Feliciano CONNELL MD DR: ASHVIN/dario JOB#: [id number] / [id number]
[2019-08-31 06:20] VITALS: BP 125/78
[2019-08-31 09:10] LABS: BASO % 0 % (0-3); EOS # 0.2 x10^3/uL (0.0-0.7); EOS % 3 % (0-3); HEMATOCRIT 37.9 % (36.0-47.0); HEMOGLOBIN 12.5 g/dL (12.0-15.5); LYMPH # 1.2 x10^3/uL (1.0-4.8); LYMPH % 17 % (24-48); MEAN CORPUSCULAR HEMOGLOBIN 32 pg (25-35); MEAN CORPUSCULAR HGB CONC 33 g/dL (31-37); MEAN CORPUSCULAR VOLUME 96 fL (79-100); MONO # 0.4 x10^3/uL (0.0-1.1); MONO % 5 % (0-9); NEUT # 5.5 x10^3uL (1.8-7.7); NEUT % 75 % (31-73); PLATELET COUNT 179 x10^3/uL (140-400); RED BLOOD COUNT 3.96 x10^6/uL (3.50-5.40); RED CELL DISTRIBUTION WIDTH 13.5 % (11.5-14.5); WHITE BLOOD COUNT 7.4 x10^3/uL (4.0-11.0)
[2019-08-31 09:22] LABS: ALBUMIN 3.4 g/dL (3.4-5.0); ALBUMIN/GLOBULIN RATIO 1.1 (1.0-1.7); CALCIUM 8.8 mg/dL (8.5-10.1); CREATININE 1.1 mg/dL (0.6-1.0); POTASSIUM 3.5 mmol/L (3.5-5.1); TOTAL BILIRUBIN 0.4 mg/dL (0.2-1.0); TOTAL PROTEIN 6.6 g/dL (6.4-8.2)
[2019-08-31] MEDS: SERTRALINE 50 MG TABLET. PO SCH (09:23)
[2019-08-31] MEDS: LOSARTAN 50 MG TABLET. PO SCH (09:23)
[2019-08-31 15:54] VITALS: BP 141/63
[2019-08-31] MEDS: QUEtiapine 25 MG TABLET. PO SCH (20:03)
[2019-08-31] MEDS: DONEPEZIL HCL 10 MG TABLET PO SCH (20:03)
--- NOTE | 2019-08-31 22:17 | PDOC ---
Exam Note: Rudy Note: Please also refer to the separate dictated note~for this date of service dictated separately.~Patient seen individually. Discussed the patient with Nursing staff reviewed the chart.~Reviewed interim history and current functioning. Reviewed vital signs,~Labs/ Radiology~and current medications noted below. Continue current treatment with the changes noted in the dictated addendum note Assessment: Vital Signs/I&O: Vital Signs Date Time Temp Pulse Resp B/P (MAP) Pulse Ox O2 Delivery O2 Flow Rate FiO2 08/31/19 20:29 98.2 99 08/31/19 15:54 67 16 141/63 (89) 08/29/19 13:47 Room Air I & O 08/30/19 08/30/19 08/31/19 15:00 23:00 07:00 Intake Total 1560 ml 360 ml Balance 1560 ml 360 ml Labs: Laboratory Tests Test 08/31/19 09:02 White Blood Count 7.4 x10^3/uL (4.0-11.0) Red Blood Count 3.96 x10^6/uL (3.50-5.40) Hemoglobin 12.5 g/dL (12.0-15.5) Hematocrit 37.9 % (36.0-47.0) Mean Corpuscular Volume 96 fL (79-100) Mean Corpuscular Hemoglobin 32 pg (25-35) Mean Corpuscular Hemoglobin Concent 33 g/dL (31-37) Red Cell Distribution Width 13.5 % (11.5-14.5) Platelet Count 179 x10^3/uL (140-400) Neutrophils (%) (Auto) 75 % (31-73) H Lymphocytes (%) (Auto) 17 % (24-48) L Monocytes (%) (Auto) 5 % (0-9) Eosinophils (%) (Auto) 3 % (0-3) Basophils (%) (Auto) 0 % (0-3) Neutrophils # (Auto) 5.5 x10^3uL (1.8-7.7) Lymphocytes # (Auto) 1.2 x10^3/uL (1.0-4.8) Monocytes # (Auto) 0.4 x10^3/uL (0.0-1.1) Eosinophils # (Auto) 0.2 x10^3/uL (0.0-0.7) Basophils # (Auto) 0.0 x10^3/uL (0.0-0.2) Sodium Level 143 mmol/L (136-145) Potassium Level 3.5 mmol/L (3.5-5.1) Chloride Level 102 mmol/L (98-107) Carbon Dioxide Level 31 mmol/L (21-32) Anion Gap 10 (6-14) Blood Urea Nitrogen 29 mg/dL (7-20) H Creatinine 1.1 mg/dL (0.6-1.0) H Estimated GFR (Cockcroft-Gault) 47.0 BUN/Creatinine Ratio 26 (6-20) H Glucose Level 160 mg/dL (70-99) H Calcium Level 8.8 mg/dL (8.5-10.1) Total Bilirubin 0.4 mg/dL (0.2-1.0) Aspartate Amino Transferase (AST) 17 U/L (15-37) Alanine Aminotransferase (ALT) 20 U/L (14-59) Alkaline Phosphatase 54 U/L (46-116) Total Protein 6.6 g/dL (6.4-8.2) Albumin 3.4 g/dL (3.4-5.0) Albumin/Globulin Ratio 1.1 (1.0-1.7) Current Medications: I have reviewed the current psychotropics carefully including drug interactions. Risk benefit ratio favors no change other than as noted in my dictated progress note. Diagnosis: Problems: (1) Major neurocognitive disorder, due to vascular disease, with behavioral di sturbance, mild (2) Dementia, vascular, with delusions (3) Dementia, vascular, with depression (4) Dementia in Alzheimer's disease with delusions (5) Dementia in Alzheimer's disease with depression (6) Impulse control disorder (7) Anxiety disorder JAMARCUS CONNELL MD August 31, 2019 22:17
--- NOTE | 2019-08-31 22:25 | PN ---
DATE: 08/31/2019 PSYCHIATRIC PROGRESS NOTE This note covers the elements not covered in my initial note, 08/31/2019. SUBJECTIVE: Per Owen RN, per nursing report, the patient remains confused. She is a little less anxious, staying more in her room. She was staffed at a treatment team meeting with the entire team in the morning with KAY Garza, [facility] social service staff, [facility] activity therapy staff. Appetite is 75-100%, slept 6-1/2 hours previous night. She has been intermittently hallucination, seeing her . REVIEW OF SYSTEMS: No CV, , pulmonary, eye, ENT system symptoms on review. Reliability is poor. MENTAL STATUS EXAM: Oriented to herself. Insight, judgment, recent and remote memory, attention, concentration, fund of knowledge poor, consistent with her diagnoses. IMPRESSION: Major neurocognitive disorder, Alzheimer, vascular with delusion, depression, behavioral disturbances. Rest unchanged. PLAN: No change from initial note. Maintain Aricept 10 mg daily, Ativan p.r.n., Seroquel 25 mg at bedtime plus p.r.n., Zyprexa p.r.n. Make further changes as clinically indicated. JAMARCUS CONNELL MD DR: ASHVIN/daroi JOB#: [id number] / [id number]
[2019-09-01 06:39] VITALS: BP 144/72
[2019-09-01] MEDS: LOSARTAN 50 MG TABLET. PO SCH (08:27)
[2019-09-01] MEDS: SERTRALINE 50 MG TABLET. PO SCH (08:27)
[2019-09-01 16:48] VITALS: BP 133/76
[2019-09-01] MEDS: QUEtiapine 25 MG TABLET. PO SCH (20:03)
[2019-09-01] MEDS: DONEPEZIL HCL 10 MG TABLET PO SCH (20:03)
--- NOTE | 2019-09-01 22:07 | PDOC ---
Exam Note: Rudy Note: Please also refer to the separate dictated note~for this date of service dictated separately.~Patient seen individually. Discussed the patient with Nursing staff reviewed the chart.~Reviewed interim history and current functioning. Reviewed vital signs,~Labs/ Radiology~and current medications noted below. Continue current treatment with the changes noted in the dictated addendum note Assessment: Vital Signs/I&O: Vital Signs Date Time Temp Pulse Resp B/P (MAP) Pulse Ox O2 Delivery O2 Flow Rate FiO2 09/01/19 21:44 98.0 94 09/01/19 16:48 83 18 133/76 (95) 08/29/19 13:47 Room Air I & O 08/31/19 08/31/19 09/01/19 15:00 23:00 07:00 Intake Total 960 ml 240 ml Balance 960 ml 240 ml Current Medications: I have reviewed the current psychotropics carefully including drug interactions. Risk benefit ratio favors no change other than as noted in my dictated progress note. Diagnosis: Problems: (1) Anxiety disorder (2) Impulse control disorder (3) Dementia, vascular, with depression (4) Dementia, vascular, with delusions (5) Dementia in Alzheimer's disease with depression (6) Dementia in Alzheimer's disease with delusions (7) Major neurocognitive disorder, due to vascular disease, with behavioral disturbance, mild (8) Weakness (9) Altered mental status JAMARCUS CONNELL MD September 01, 2019 22:07
[2019-09-02 06:15] VITALS: BP 158/64
[2019-09-02] MEDS: LOSARTAN 50 MG TABLET. PO SCH (08:07)
[2019-09-02] MEDS: SERTRALINE 50 MG TABLET. PO SCH (08:07)
[2019-09-02 16:20] VITALS: BP 158/72
[2019-09-02] MEDS: QUEtiapine 25 MG TABLET. PO SCH (20:39)
[2019-09-02] MEDS: DONEPEZIL HCL 10 MG TABLET PO SCH (20:39)
--- NOTE | 2019-09-02 22:35 | PDOC ---
Exam Note: Rudy Note: Please also refer to the separate dictated note~for this date of service dictated separately.~Patient seen individually. Discussed the patient with Nursing staff reviewed the chart.~Reviewed interim history and current functioning. Reviewed vital signs,~Labs/ Radiology~and current medications noted below. Continue current treatment with the changes noted in the dictated addendum note Assessment: Vital Signs/I&O: Vital Signs Date Time Temp Pulse Resp B/P (MAP) Pulse Ox O2 Delivery O2 Flow Rate FiO2 09/02/19 20:59 97.8 93 09/02/19 16:20 76 18 158/72 (100) Room Air I & O 09/01/19 09/01/19 09/02/19 15:00 23:00 07:00 Intake Total 720 ml 600 ml Balance 720 ml 600 ml Current Medications: I have reviewed the current psychotropics carefully including drug interactions. Risk benefit ratio favors no change other than as noted in my dictated progress note. Diagnosis: Problems: (1) Anxiety disorder (2) Impulse control disorder (3) Dementia, vascular, with depression (4) Dementia, vascular, with delusions (5) Dementia in Alzheimer's disease with depression (6) Dementia in Alzheimer's disease with delusions (7) Major neurocognitive disorder, due to vascular disease, with behavioral disturbance, mild (8) Weakness (9) Altered mental status JAMARCUS CONNELL MD September 02, 2019 22:35
[2019-09-03 06:51] VITALS: BP 138/75
--- NOTE | 2019-09-03 08:19 | PDOC ---
Exam Note: Rudy Note: This note is a late entry for 09/01/2019 covers elements not covered in my initial note. Subjective: The patient was seen face to face in the evening of 09/01/2019. Nursing report was with Janeen VILLANUEVA. Discussed the patient with nursing staff reviewed the chart. She slept 7-1/2 hours previous night. She has been coming out of the room more. Remains confused. She knew she was in a hospital but did not know the name of the hospital. When I informed her she was at [facility], she was quite appreciative, less anxious. Review of Systems: No CV, GI/, Pulmonary, Eye, ENT system symptoms on review. Mental Status Exam: Oriented to herself and situation. Insight and judgment, recent and remote memory, attention and concentration, fund of knowledge is poor consistent with her diagnosis. Laboratory Data: Reviewed. Impression: Major neurocognitive disorder Alzheimer vascular with delusion, depression and behavioral disturbance. Anxiety disorder unspecified. Impulse control disorder unspecified. Rest unchanged. Plan: No change from initial note. Maintain Aricept 10 mg h.s., Ativan p.r.n., Seroquel 12.5 mg p.r.n. in 24 hours and 25 mg h.s., Zyprexa p.r.n., Zoloft was stopped. Assessment: Vital Signs/I&O: Vital Signs Date Time Temp Pulse Resp B/P (MAP) Pulse Ox O2 Delivery O2 Flow Rate FiO2 09/03/19 06:51 97.8 62 16 138/75 (96) 92 09/02/19 16:20 Room Air I & O 09/02/19 09/02/19 09/03/19 15:00 23:00 07:00 Intake Total 720 ml 600 ml Balance 720 ml 600 ml Current Medications: I have reviewed the current psychotropics carefully including drug interactions. Risk benefit ratio favors no change other than as noted in my dictated progress note. Diagnosis: Problems: (1) Anxiety disorder (2) Impulse control disorder (3) Dementia, vascular, with depression (4) Dementia, vascular, with delusions (5) Dementia in Alzheimer's disease with depression (6) Dementia in Alzheimer's disease with delusions (7) Major neurocognitive disorder, due to vascular disease, with behavioral disturbance, mild (8) Weakness (9) Altered mental status JAMARCUS CONNELL MD September 03, 2019 08:19
--- NOTE | 2019-09-03 08:20 | PDOC ---
Exam Note: Rudy Note: This note is a late entry for 09/02/2019 covers elements not covered in my initial note. Subjective: The patient was seen face to face in the evening of 09/02/2019. Nursing report was with Jani VILLANUEVA. Discussed the patient with nursing staff reviewed the chart. She has been confused, pleasant, calm. I met with her at some length in the evening. She has not been talking about her . Review of Systems: No CV, GI/, Pulmonary, Eye, ENT system symptoms on review. Mental Status Exam: Oriented to herself. Insight and judgment, recent and remote memory, attention and concentration, fund of knowledge is poor consistent with her diagnosis. Laboratory Data: Reviewed. Impression: Major neurocognitive disorder Alzheimer vascular with delusion, depression and behavioral disturbance. Anxiety disorder unspecified. Impulse control disorder unspecified. Rest unchanged. Plan: No change from initial note. Continue psychotropics mentioned in my initial note. Assessment: Vital Signs/I&O: Vital Signs Date Time Temp Pulse Resp B/P (MAP) Pulse Ox O2 Delivery O2 Flow Rate FiO2 09/03/19 06:51 97.8 62 16 138/75 (96) 92 09/02/19 16:20 Room Air I & O 09/02/19 09/02/19 09/03/19 15:00 23:00 07:00 Intake Total 720 ml 600 ml Balance 720 ml 600 ml Current Medications: I have reviewed the current psychotropics carefully including drug interactions. Risk benefit ratio favors no change other than as noted in my dictated progress note. Diagnosis: Problems: (1) Anxiety disorder (2) Impulse control disorder (3) Dementia, vascular, with depression (4) Dementia, vascular, with delusions (5) Dementia in Alzheimer's disease with depression (6) Dementia in Alzheimer's disease with delusions (7) Major neurocognitive disorder, due to vascular disease, with behavioral disturbance, mild (8) Weakness (9) Altered mental status JAMARCUS CONNELL MD September 03, 2019 08:20
[2019-09-03] MEDS: SERTRALINE 50 MG TABLET. PO SCH (08:33)
[2019-09-03] MEDS: LOSARTAN 50 MG TABLET. PO SCH (08:33)
[2019-09-03 16:13] VITALS: BP 135/79
[2019-09-03] MEDS: DONEPEZIL HCL 10 MG TABLET PO SCH (20:11)
[2019-09-03] MEDS: QUEtiapine 25 MG TABLET. PO SCH (20:11)
--- NOTE | 2019-09-03 22:02 | PDOC ---
Exam Note: Rudy Note: Please also refer to the separate dictated note~for this date of service dictated separately.~Patient seen individually. Discussed the patient with Nursing staff reviewed the chart.~Reviewed interim history and current functioning. Reviewed vital signs,~Labs/ Radiology~and current medications noted below. Continue current treatment with the changes noted in the dictated addendum note Assessment: Vital Signs/I&O: Vital Signs Date Time Temp Pulse Resp B/P (MAP) Pulse Ox O2 Delivery O2 Flow Rate FiO2 09/03/19 18:08 98.1 09/03/19 16:13 72 16 135/79 (97) 94 Room Air I & O 09/02/19 09/02/19 09/03/19 15:00 23:00 07:00 Intake Total 720 ml 600 ml Balance 720 ml 600 ml Current Medications: I have reviewed the current psychotropics carefully including drug interactions. Risk benefit ratio favors no change other than as noted in my dictated progress note. Diagnosis: Problems: (1) Anxiety disorder (2) Impulse control disorder (3) Dementia, vascular, with depression (4) Dementia, vascular, with delusions (5) Dementia in Alzheimer's disease with depression (6) Dementia in Alzheimer's disease with delusions (7) Major neurocognitive disorder, due to vascular disease, with behavioral disturbance, mild (8) Weakness (9) Altered mental status JAMARCUS CONNELL MD September 03, 2019 22:01
[2019-09-04 06:21] VITALS: BP 148/73
[2019-09-04 07:13] LABS: BASO % 1 % (0-3); EOS # 0.2 x10^3/uL (0.0-0.7); EOS % 4 % (0-3); HEMATOCRIT 36.2 % (36.0-47.0); HEMOGLOBIN 11.9 g/dL (12.0-15.5); LYMPH # 1.4 x10^3/uL (1.0-4.8); LYMPH % 22 % (24-48); MEAN CORPUSCULAR HEMOGLOBIN 32 pg (25-35); MEAN CORPUSCULAR HGB CONC 33 g/dL (31-37); MEAN CORPUSCULAR VOLUME 96 fL (79-100); MONO # 0.5 x10^3/uL (0.0-1.1); MONO % 8 % (0-9); NEUT # 4.2 x10^3uL (1.8-7.7); NEUT % 65 % (31-73); PLATELET COUNT 156 x10^3/uL (140-400); RED BLOOD COUNT 3.75 x10^6/uL (3.50-5.40); RED CELL DISTRIBUTION WIDTH 13.6 % (11.5-14.5); WHITE BLOOD COUNT 6.4 x10^3/uL (4.0-11.0)
[2019-09-04 07:24] LABS: CALCIUM 8.7 mg/dL (8.5-10.1); CREATININE 0.8 mg/dL (0.6-1.0); GFR 67.8; POTASSIUM 3.7 mmol/L (3.5-5.1); TOTAL BILIRUBIN 0.3 mg/dL (0.2-1.0); TOTAL PROTEIN 6.1 g/dL (6.4-8.2)
--- NOTE | 2019-09-04 07:30 | PDOC ---
Exam Note: Rudy Note: This note is a late entry for 09/03/2019 covers elements not covered in my initial note. Subjective: The patient was seen face to face in the evening of 09/03/2019. Nursing report was with Emeka VILLANUEVA. Discussed the patient with nursing staff reviewed the chart. The patient remains confused, anxious, restless, ambulates around the unit, distractible. She is obsessed about wanting out of here, more social. Review of Systems: No CV, GI/, Pulmonary, Eye, ENT system symptoms on review. Mental Status Exam: Oriented to herself. Insight and judgment, recent and remote memory, attention and concentration, fund of knowledge is poor consistent with her diagnosis mentioned in my initial note. Laboratory Data: Reviewed. Impression: Major neurocognitive disorder Alzheimer vascular with delusion, depression and behavioral disturbance. Anxiety disorder unspecified. Impulse control disorder unspecified. Rest unchanged. Plan: No change from initial note. Assessment: Vital Signs/I&O: Vital Signs Date Time Temp Pulse Resp B/P (MAP) Pulse Ox O2 Delivery O2 Flow Rate FiO2 09/04/19 06:21 97.7 59 16 148/73 (98) 92 09/03/19 16:13 Room Air I & O 09/03/19 09/03/19 09/04/19 15:00 23:00 07:00 Intake Total 600 ml 120 ml Balance 600 ml 120 ml Labs: Laboratory Tests Test 09/04/19 06:20 White Blood Count 6.4 x10^3/uL (4.0-11.0) Red Blood Count 3.75 x10^6/uL (3.50-5.40) Hemoglobin 11.9 g/dL (12.0-15.5) L Hematocrit 36.2 % (36.0-47.0) Mean Corpuscular Volume 96 fL (79-100) Mean Corpuscular Hemoglobin 32 pg (25-35) Mean Corpuscular Hemoglobin Concent 33 g/dL (31-37) Red Cell Distribution Width 13.6 % (11.5-14.5) Platelet Count 156 x10^3/uL (140-400) Neutrophils (%) (Auto) 65 % (31-73) Lymphocytes (%) (Auto) 22 % (24-48) L Monocytes (%) (Auto) 8 % (0-9) Eosinophils (%) (Auto) 4 % (0-3) H Basophils (%) (Auto) 1 % (0-3) Neutrophils # (Auto) 4.2 x10^3uL (1.8-7.7) Lymphocytes # (Auto) 1.4 x10^3/uL (1.0-4.8) Monocytes # (Auto) 0.5 x10^3/uL (0.0-1.1) Eosinophils # (Auto) 0.2 x10^3/uL (0.0-0.7) Basophils # (Auto) 0.0 x10^3/uL (0.0-0.2) Sodium Level 141 mmol/L (136-145) Potassium Level 3.7 mmol/L (3.5-5.1) Chloride Level 105 mmol/L (98-107) Carbon Dioxide Level 29 mmol/L (21-32) Anion Gap 7 (6-14) Blood Urea Nitrogen 26 mg/dL (7-20) H Creatinine 0.8 mg/dL (0.6-1.0) Estimated GFR (Cockcroft-Gault) 67.8 BUN/Creatinine Ratio 33 (6-20) H Glucose Level 82 mg/dL (70-99) Calcium Level 8.7 mg/dL (8.5-10.1) Total Bilirubin 0.3 mg/dL (0.2-1.0) Aspartate Amino Transferase (AST) 19 U/L (15-37) Alanine Aminotransferase (ALT) 16 U/L (14-59) Alkaline Phosphatase 44 U/L (46-116) L Total Protein 6.1 g/dL (6.4-8.2) L Albumin 3.0 g/dL (3.4-5.0) L Albumin/Globulin Ratio 1.0 (1.0-1.7) Current Medications: I have reviewed the current psychotropics carefully including drug interactions. Risk benefit ratio favors no change other than as noted in my dictated progress note. Diagnosis: Problems: (1) Anxiety disorder (2) Impulse control disorder (3) Dementia, vascular, with depression (4) Dementia, vascular, with delusions (5) Dementia in Alzheimer's disease with depression (6) Dementia in Alzheimer's disease with delusions (7) Major neurocognitive disorder, due to vascular disease, with behavioral disturbance, mild (8) Weakness (9) Altered mental status JAMARCUS CONNELL MD September 04, 2019 07:30
[2019-09-04] MEDS: SERTRALINE 50 MG TABLET. PO SCH (09:48)
[2019-09-04] MEDS: ACETAMINOPHEN 325 MG TABLET PO PRN (09:48)
[2019-09-04] MEDS: LOSARTAN 50 MG TABLET. PO SCH (09:48)
[2019-09-04 16:20] VITALS: BP 131/74
[2019-09-04] MEDS: QUEtiapine 25 MG TABLET. PO SCH (20:36)
[2019-09-04] MEDS: DONEPEZIL HCL 10 MG TABLET PO SCH (20:36)
[2019-09-05 05:48] VITALS: BP 151/71
[2019-09-05] MEDS: SERTRALINE 50 MG TABLET. PO SCH (08:17)
[2019-09-05] MEDS: LOSARTAN 50 MG TABLET. PO SCH (08:17)
--- NOTE | 2019-09-05 08:22 | PDOC ---
Exam Note: Rudy Note: This is a late entry for DOS 09/04/2019. Please also refer to the separate dictated note~for this date of service dictated separately.~Patient seen individually. Discussed the patient with Nursing staff reviewed the chart.~Reviewed interim history and current functioning. Reviewed vital signs,~Labs/ Radiology~and current medications noted below. Continue current treatment with the changes noted in the dictated addendum note Assessment: Vital Signs/I&O: Vital Signs Date Time Temp Pulse Resp B/P (MAP) Pulse Ox O2 Delivery O2 Flow Rate FiO2 09/05/19 08:17 66 151/71 09/05/19 05:48 97.5 16 92 09/03/19 16:13 Room Air I & O 09/04/19 09/04/19 09/05/19 15:00 23:00 07:00 Intake Total 600 ml 480 ml Balance 600 ml 480 ml Current Medications: Meds: Current Medications Medications (Trade) Dose Ordered Sig/Rosa Elena Route PRN Reason Start Time Stop Time Status Last Admin Dose Admin Sertraline HCl (Zoloft) 75 mg DAILY PO 09/05/19 09:00 09/05/19 08:17 I have reviewed the current psychotropics carefully including drug interactions. Risk benefit ratio favors no change other than as noted in my dictated progress note. Diagnosis: Problems: (1) Anxiety disorder (2) Impulse control disorder (3) Dementia, vascular, with depression (4) Dementia, vascular, with delusions (5) Dementia in Alzheimer's disease with depression (6) Dementia in Alzheimer's disease with delusions (7) Major neurocognitive disorder, due to vascular disease, with behavioral disturbance, mild (8) Weakness (9) Altered mental status JAMARCUS CONNELL MD September 05, 2019 08:22
[2019-09-05] MEDS ORDERED: SERTRALINE 25 MG TABLET. PO SCH (09:00)
[2019-09-05] MEDS: ACETAMINOPHEN 325 MG TABLET PO PRN (12:20)
[2019-09-05 15:59] VITALS: BP 130/68
[2019-09-05] MEDS: DONEPEZIL HCL 10 MG TABLET PO SCH (19:43)
[2019-09-05] MEDS: QUEtiapine 25 MG TABLET. PO SCH (19:43)
--- NOTE | 2019-09-05 22:11 | PDOC ---
Exam Note: Rudy Note: Please also refer to the separate dictated note~for this date of service dictated separately.~Patient seen individually. Discussed the patient with Nursing staff reviewed the chart.~Reviewed interim history and current functioning. Reviewed vital signs,~Labs/ Radiology~and current medications noted below. Continue current treatment with the changes noted in the dictated addendum note Assessment: Vital Signs/I&O: Vital Signs Date Time Temp Pulse Resp B/P (MAP) Pulse Ox O2 Delivery O2 Flow Rate FiO2 09/05/19 18:38 98.2 09/05/19 15:59 65 18 130/68 (88) 92 09/03/19 16:13 Room Air I & O 09/04/19 09/04/19 09/05/19 15:00 23:00 07:00 Intake Total 600 ml 480 ml Balance 600 ml 480 ml Current Medications: Meds: Current Medications Medications (Trade) Dose Ordered Sig/Rosa Elena Route PRN Reason Start Time Stop Time Status Last Admin Dose Admin Sertraline HCl (Zoloft) 75 mg DAILY PO 09/05/19 09:00 09/05/19 08:17 I have reviewed the current psychotropics carefully including drug interactions. Risk benefit ratio favors no change other than as noted in my dictated progress note. Diagnosis: Problems: (1) Anxiety disorder (2) Impulse control disorder (3) Dementia, vascular, with depression (4) Dementia, vascular, with delusions (5) Dementia in Alzheimer's disease with depression (6) Dementia in Alzheimer's disease with delusions (7) Major neurocognitive disorder, due to vascular disease, with behavioral disturbance, mild (8) Weakness (9) Altered mental status JAMARCUS CONNELL MD September 05, 2019 22:11
[2019-09-06 05:13] VITALS: BP 158/67
[2019-09-06 07:16] LABS: BASO % 0 % (0-3); EOS # 0.2 x10^3/uL (0.0-0.7); EOS % 3 % (0-3); HEMATOCRIT 36.5 % (36.0-47.0); HEMOGLOBIN 11.9 g/dL (12.0-15.5); LYMPH # 1.4 x10^3/uL (1.0-4.8); LYMPH % 19 % (24-48); MEAN CORPUSCULAR HEMOGLOBIN 31 pg (25-35); MEAN CORPUSCULAR HGB CONC 33 g/dL (31-37); MEAN CORPUSCULAR VOLUME 96 fL (79-100); MONO # 0.5 x10^3/uL (0.0-1.1); MONO % 7 % (0-9); NEUT # 5.3 x10^3uL (1.8-7.7); NEUT % 71 % (31-73); PLATELET COUNT 158 x10^3/uL (140-400); RED CELL DISTRIBUTION WIDTH 13.5 % (11.5-14.5); WHITE BLOOD COUNT 7.5 x10^3/uL (4.0-11.0)
[2019-09-06 07:35] LABS: ALBUMIN 3.1 g/dL (3.4-5.0); CALCIUM 8.5 mg/dL (8.5-10.1); GFR 52.4; TOTAL BILIRUBIN 0.4 mg/dL (0.2-1.0); TOTAL PROTEIN 6.2 g/dL (6.4-8.2)
--- NOTE | 2019-09-06 07:47 | PDOC ---
Exam Note: Rudy Note: This note is a late entry for 09/04/2019 covers elements not covered in my initial note. Subjective: The patient was seen face to face in the evening of 09/04/2019. Nursing report was with Arianne VILLANUEVA. Discussed the patient with nursing staff reviewed the chart. The patient slept 6-1/4 hours previous night. She is angry, confused, walking fast up and down the hallway, little more pleasant, did take a shower. Review of Systems: No CV, GI/, Pulmonary, Eye, ENT system symptoms on review. Mental Status Exam: Oriented to herself. Insight and judgment, recent and remote memory, attention and concentration, fund of knowledge is poor consistent with her diagnosis mentioned in my initial note. Laboratory Data: Reviewed. Impression: Major neurocognitive disorder Alzheimer vascular with delusion, depression and behavioral disturbance. Anxiety disorder unspecified. Impulse control disorder unspecified. Rest unchanged. Plan: Continue psychotropics. Start Zoloft 25 mg for 3 days and 50 mg a day. Rest unchanged. Assessment: Vital Signs/I&O: Vital Signs Date Time Temp Pulse Resp B/P (MAP) Pulse Ox O2 Delivery O2 Flow Rate FiO2 09/06/19 05:13 98.2 66 16 158/67 (97) 93 09/03/19 16:13 Room Air I & O 09/05/19 09/05/19 09/06/19 15:00 23:00 07:00 Intake Total 720 ml 840 ml Balance 720 ml 840 ml Labs: Laboratory Tests Test 09/06/19 06:52 White Blood Count 7.5 x10^3/uL (4.0-11.0) Red Blood Count 3.80 x10^6/uL (3.50-5.40) Hemoglobin 11.9 g/dL (12.0-15.5) L Hematocrit 36.5 % (36.0-47.0) Mean Corpuscular Volume 96 fL (79-100) Mean Corpuscular Hemoglobin 31 pg (25-35) Mean Corpuscular Hemoglobin Concent 33 g/dL (31-37) Red Cell Distribution Width 13.5 % (11.5-14.5) Platelet Count 158 x10^3/uL (140-400) Neutrophils (%) (Auto) 71 % (31-73) Lymphocytes (%) (Auto) 19 % (24-48) L Monocytes (%) (Auto) 7 % (0-9) Eosinophils (%) (Auto) 3 % (0-3) Basophils (%) (Auto) 0 % (0-3) Neutrophils # (Auto) 5.3 x10^3uL (1.8-7.7) Lymphocytes # (Auto) 1.4 x10^3/uL (1.0-4.8) Monocytes # (Auto) 0.5 x10^3/uL (0.0-1.1) Eosinophils # (Auto) 0.2 x10^3/uL (0.0-0.7) Basophils # (Auto) 0.0 x10^3/uL (0.0-0.2) Sodium Level 141 mmol/L (136-145) Potassium Level 4.0 mmol/L (3.5-5.1) Chloride Level 104 mmol/L (98-107) Carbon Dioxide Level 34 mmol/L (21-32) H Anion Gap 3 (6-14) L Blood Urea Nitrogen 28 mg/dL (7-20) H Creatinine 1.0 mg/dL (0.6-1.0) Estimated GFR (Cockcroft-Gault) 52.4 BUN/Creatinine Ratio 28 (6-20) H Glucose Level 86 mg/dL (70-99) Calcium Level 8.5 mg/dL (8.5-10.1) Total Bilirubin 0.4 mg/dL (0.2-1.0) Aspartate Amino Transferase (AST) 14 U/L (15-37) L Alanine Aminotransferase (ALT) 17 U/L (14-59) Alkaline Phosphatase 44 U/L (46-116) L Total Protein 6.2 g/dL (6.4-8.2) L Albumin 3.1 g/dL (3.4-5.0) L Albumin/Globulin Ratio 1.0 (1.0-1.7) Current Medications: Meds: Current Medications Medications (Trade) Dose Ordered Sig/Rosa Elena Route PRN Reason Start Time Stop Time Status Last Admin Dose Admin Sertraline HCl (Zoloft) 75 mg DAILY PO 09/05/19 09:00 09/05/19 08:17 I have reviewed the current psychotropics carefully including drug interactions. Risk benefit ratio favors no change other than as noted in my dictated progress note. Diagnosis: Problems: (1) Anxiety disorder (2) Impulse control disorder (3) Dementia, vascular, with depression (4) Dementia, vascular, with delusions (5) Dementia in Alzheimer's disease with depression (6) Dementia in Alzheimer's disease with delusions (7) Major neurocognitive disorder, due to vascular disease, with behavioral disturbance, mild (8) Weakness (9) Altered mental status JAMARCUS CONNELL MD September 06, 2019 07:47
--- NOTE | 2019-09-06 08:08 | PDOC ---
Exam Note: Rudy Note: This note is a late entry for 09/05/2019 covers elements not covered in my initial note. Subjective: The patient was seen face to face with the treatment team in the morning including Margie Castro, and Maryan (social media intern), Sabiha, Activity Therapy. Nursing report was with Morena VILLANUEVA. Discussed the patient with nursing staff in the evening reviewed the chart. The patient slept reasonably previous night. Review of Systems: No CV, GI/, Pulmonary, Eye, ENT system symptoms on review. Reliability poor. Mental Status Exam: Oriented to herself. Insight and judgment, recent and remote memory, attention and concentration, fund of knowledge is poor consistent with her diagnosis mentioned in my initial note. Laboratory Data: Reviewed. Impression: Major neurocognitive disorder Alzheimer vascular with delusion, depression and behavioral disturbance. Anxiety disorder unspecified. Impulse control disorder unspecified. Rest unchanged. Plan: No change from initial note. The patient was quite upset at another patient stating that she was sent here by mistake and she was not a resident here which the other patient was trying to convince her about. She did redirect as I intervened. Continue psychotropics from initial note. Adjust further as clinically indicated. Assessment: Vital Signs/I&O: Vital Signs Date Time Temp Pulse Resp B/P (MAP) Pulse Ox O2 Delivery O2 Flow Rate FiO2 09/06/19 05:13 98.2 66 16 158/67 (97) 93 09/03/19 16:13 Room Air I & O 09/05/19 09/05/19 09/06/19 15:00 23:00 07:00 Intake Total 720 ml 840 ml Balance 720 ml 840 ml Labs: Laboratory Tests Test 09/06/19 06:52 White Blood Count 7.5 x10^3/uL (4.0-11.0) Red Blood Count 3.80 x10^6/uL (3.50-5.40) Hemoglobin 11.9 g/dL (12.0-15.5) L Hematocrit 36.5 % (36.0-47.0) Mean Corpuscular Volume 96 fL (79-100) Mean Corpuscular Hemoglobin 31 pg (25-35) Mean Corpuscular Hemoglobin Concent 33 g/dL (31-37) Red Cell Distribution Width 13.5 % (11.5-14.5) Platelet Count 158 x10^3/uL (140-400) Neutrophils (%) (Auto) 71 % (31-73) Lymphocytes (%) (Auto) 19 % (24-48) L Monocytes (%) (Auto) 7 % (0-9) Eosinophils (%) (Auto) 3 % (0-3) Basophils (%) (Auto) 0 % (0-3) Neutrophils # (Auto) 5.3 x10^3uL (1.8-7.7) Lymphocytes # (Auto) 1.4 x10^3/uL (1.0-4.8) Monocytes # (Auto) 0.5 x10^3/uL (0.0-1.1) Eosinophils # (Auto) 0.2 x10^3/uL (0.0-0.7) Basophils # (Auto) 0.0 x10^3/uL (0.0-0.2) Sodium Level 141 mmol/L (136-145) Potassium Level 4.0 mmol/L (3.5-5.1) Chloride Level 104 mmol/L (98-107) Carbon Dioxide Level 34 mmol/L (21-32) H Anion Gap 3 (6-14) L Blood Urea Nitrogen 28 mg/dL (7-20) H Creatinine 1.0 mg/dL (0.6-1.0) Estimated GFR (Cockcroft-Gault) 52.4 BUN/Creatinine Ratio 28 (6-20) H Glucose Level 86 mg/dL (70-99) Calcium Level 8.5 mg/dL (8.5-10.1) Total Bilirubin 0.4 mg/dL (0.2-1.0) Aspartate Amino Transferase (AST) 14 U/L (15-37) L Alanine Aminotransferase (ALT) 17 U/L (14-59) Alkaline Phosphatase 44 U/L (46-116) L Total Protein 6.2 g/dL (6.4-8.2) L Albumin 3.1 g/dL (3.4-5.0) L Albumin/Globulin Ratio 1.0 (1.0-1.7) Current Medications: Meds: Current Medications Medications (Trade) Dose Ordered Sig/Rosa Elena Route PRN Reason Start Time Stop Time Status Last Admin Dose Admin Sertraline HCl (Zoloft) 75 mg DAILY PO 09/05/19 09:00 09/05/19 08:17 I have reviewed the current psychotropics carefully including drug interactions. Risk benefit ratio favors no change other than as noted in my dictated progress note. Diagnosis: Problems: (1) Anxiety disorder (2) Impulse control disorder (3) Dementia, vascular, with depression (4) Dementia, vascular, with delusions (5) Dementia in Alzheimer's disease with depression (6) Dementia in Alzheimer's disease with delusions (7) Major neurocognitive disorder, due to vascular disease, with behavioral disturbance, mild (8) Weakness (9) Altered mental status JAMARCUS CONNELL MD September 06, 2019 08:08
[2019-09-06] MEDS: LOSARTAN 50 MG TABLET. PO SCH (08:33)
[2019-09-06] MEDS: SERTRALINE 50 MG TABLET. PO SCH (08:34)
[2019-09-06 15:53] VITALS: BP 156/84
[2019-09-06] MEDS: DONEPEZIL HCL 10 MG TABLET PO SCH (20:26)
[2019-09-06] MEDS: QUEtiapine 25 MG TABLET. PO SCH (20:27)
--- NOTE | 2019-09-06 22:08 | PDOC ---
Exam Note: Rudy Note: Please also refer to the separate dictated note~for this date of service dictated separately.~Patient seen individually. Discussed the patient with Nursing staff reviewed the chart.~Reviewed interim history and current functioning. Reviewed vital signs,~Labs/ Radiology~and current medications noted below. Continue current treatment with the changes noted in the dictated addendum note Assessment: Vital Signs/I&O: Vital Signs Date Time Temp Pulse Resp B/P (MAP) Pulse Ox O2 Delivery O2 Flow Rate FiO2 09/06/19 20:34 98.1 93 09/06/19 15:53 66 16 156/84 (108) 09/03/19 16:13 Room Air I & O 09/05/19 09/05/19 09/06/19 15:00 23:00 07:00 Intake Total 720 ml 840 ml Balance 720 ml 840 ml Labs: Laboratory Tests Test 09/06/19 06:52 White Blood Count 7.5 x10^3/uL (4.0-11.0) Red Blood Count 3.80 x10^6/uL (3.50-5.40) Hemoglobin 11.9 g/dL (12.0-15.5) L Hematocrit 36.5 % (36.0-47.0) Mean Corpuscular Volume 96 fL (79-100) Mean Corpuscular Hemoglobin 31 pg (25-35) Mean Corpuscular Hemoglobin Concent 33 g/dL (31-37) Red Cell Distribution Width 13.5 % (11.5-14.5) Platelet Count 158 x10^3/uL (140-400) Neutrophils (%) (Auto) 71 % (31-73) Lymphocytes (%) (Auto) 19 % (24-48) L Monocytes (%) (Auto) 7 % (0-9) Eosinophils (%) (Auto) 3 % (0-3) Basophils (%) (Auto) 0 % (0-3) Neutrophils # (Auto) 5.3 x10^3uL (1.8-7.7) Lymphocytes # (Auto) 1.4 x10^3/uL (1.0-4.8) Monocytes # (Auto) 0.5 x10^3/uL (0.0-1.1) Eosinophils # (Auto) 0.2 x10^3/uL (0.0-0.7) Basophils # (Auto) 0.0 x10^3/uL (0.0-0.2) Sodium Level 141 mmol/L (136-145) Potassium Level 4.0 mmol/L (3.5-5.1) Chloride Level 104 mmol/L (98-107) Carbon Dioxide Level 34 mmol/L (21-32) H Anion Gap 3 (6-14) L Blood Urea Nitrogen 28 mg/dL (7-20) H Creatinine 1.0 mg/dL (0.6-1.0) Estimated GFR (Cockcroft-Gault) 52.4 BUN/Creatinine Ratio 28 (6-20) H Glucose Level 86 mg/dL (70-99) Calcium Level 8.5 mg/dL (8.5-10.1) Total Bilirubin 0.4 mg/dL (0.2-1.0) Aspartate Amino Transferase (AST) 14 U/L (15-37) L Alanine Aminotransferase (ALT) 17 U/L (14-59) Alkaline Phosphatase 44 U/L (46-116) L Total Protein 6.2 g/dL (6.4-8.2) L Albumin 3.1 g/dL (3.4-5.0) L Albumin/Globulin Ratio 1.0 (1.0-1.7) Current Medications: I have reviewed the current psychotropics carefully including drug interactions. Risk benefit ratio favors no change other than as noted in my dictated progress note. Diagnosis: Problems: (1) Anxiety disorder (2) Impulse control disorder (3) Dementia, vascular, with depression (4) Dementia, vascular, with delusions (5) Dementia in Alzheimer's disease with depression (6) Dementia in Alzheimer's disease with delusions (7) Major neurocognitive disorder, due to vascular disease, with behavioral disturbance, mild (8) Weakness (9) Altered mental status JAMARCUS CONNELL MD September 06, 2019 22:08
[2019-09-07 06:12] VITALS: BP 129/79
[2019-09-07] MEDS: SERTRALINE 50 MG TABLET. PO SCH (08:03)
[2019-09-07] MEDS: LOSARTAN 50 MG TABLET. PO SCH (08:03)
[2019-09-07] MEDS: ACETAMINOPHEN 325 MG TABLET PO PRN (09:49)
[2019-09-07] MEDS: QUEtiapine 25 MG TABLET. PO SCH ×2 (15:13→21:47)
[2019-09-07 16:16] VITALS: BP 131/77
[2019-09-07] MEDS: DONEPEZIL HCL 10 MG TABLET PO SCH (21:45)
--- NOTE | 2019-09-07 22:06 | PDOC ---
Exam Note: Rudy Note: Please also refer to the separate dictated note~for this date of service dictated separately.~Patient seen individually. Discussed the patient with Nursing staff reviewed the chart.~Reviewed interim history and current functioning. Reviewed vital signs,~Labs/ Radiology~and current medications noted below. Continue current treatment with the changes noted in the dictated addendum note Assessment: Vital Signs/I&O: Vital Signs Date Time Temp Pulse Resp B/P (MAP) Pulse Ox O2 Delivery O2 Flow Rate FiO2 09/07/19 16:16 98.1 70 18 131/77 (95) 95 09/03/19 16:13 Room Air I & O 09/06/19 09/06/19 09/07/19 15:00 23:00 07:00 Intake Total 360 ml 580 ml Balance 360 ml 580 ml Current Medications: Meds: Current Medications Medications (Trade) Dose Ordered Sig/Rosa Elena Route PRN Reason Start Time Stop Time Status Last Admin Dose Admin Quetiapine Fumarate (SEROquel) 12.5 mg 1500 PO 09/07/19 15:00 09/07/19 15:13 I have reviewed the current psychotropics carefully including drug interactions. Risk benefit ratio favors no change other than as noted in my dictated progress note. Diagnosis: Problems: (1) Anxiety disorder (2) Impulse control disorder (3) Dementia, vascular, with depression (4) Dementia, vascular, with delusions (5) Dementia in Alzheimer's disease with depression (6) Dementia in Alzheimer's disease with delusions (7) Major neurocognitive disorder, due to vascular disease, with behavioral disturbance, mild (8) Weakness (9) Altered mental status JAMARCUS CONNELL MD September 07, 2019 22:06
[2019-09-08 05:51] VITALS: BP 146/80
--- NOTE | 2019-09-08 07:32 | PDOC ---
Exam Note: Rudy Note: This note is a late entry for 09/06/2019 covers elements not covered in my initial note. Subjective: The patient was seen face to face in the evening. Nursing report was with Owen VILLANUEVA. Discussed the patient with nursing staff reviewed the chart. She has not been aggressive, disruptive, remains confused, wanders up and down the hallway. Again telling staff she is not a resident here but just came for a visit and was kept here and I had addressed this with her individually at some length in the evening. Review of Systems: No CV, GI/, Pulmonary, Eye, ENT system symptoms on review. Reliability poor. Mental Status Exam: Oriented to herself. Insight and judgment, recent and remote memory, attention and concentration, fund of knowledge is poor consistent with her diagnosis mentioned in my initial note. Laboratory Data: Reviewed. Impression: Major neurocognitive disorder Alzheimer vascular with delusion, depression and behavioral disturbance. Anxiety disorder unspecified. Impulse control disorder unspecified. Rest unchanged. Plan: No change from initial note. Assessment: Vital Signs/I&O: Vital Signs Date Time Temp Pulse Resp B/P (MAP) Pulse Ox O2 Delivery O2 Flow Rate FiO2 09/08/19 05:51 98.0 60 16 146/80 (102) 92 09/03/19 16:13 Room Air I & O 09/07/19 09/07/19 09/08/19 15:00 23:00 07:00 Intake Total 600 ml 360 ml Balance 600 ml 360 ml Current Medications: Meds: Current Medications Medications (Trade) Dose Ordered Sig/Rosa Elena Route PRN Reason Start Time Stop Time Status Last Admin Dose Admin Quetiapine Fumarate (SEROquel) 12.5 mg 1500 PO 09/07/19 15:00 09/07/19 15:13 I have reviewed the current psychotropics carefully including drug interactions. Risk benefit ratio favors no change other than as noted in my dictated progress note. Diagnosis: Problems: (1) Impulse control disorder (2) Anxiety disorder (3) Dementia, vascular, with delusions (4) Dementia in Alzheimer's disease with depression (5) Weakness (6) Altered mental status (7) Major neurocognitive disorder, due to vascular disease, with behavioral disturbance, mild (8) Dementia in Alzheimer's disease with delusions (9) Dementia, vascular, with depression JAMARCUS CONNELL MD September 08, 2019 07:32
--- NOTE | 2019-09-08 07:48 | PDOC ---
Exam Note: Rudy Note: This note is a late entry for 09/07/2019 covers elements not covered in my initial note. Subjective: The patient was seen face to face with the treatment team in the morning including Margie Castro, and Maryan (social work faculty member), Sabiha, Activity Therapy. Nursing report was with Morena VILLANUEVA. Discussed the patient with nursing staff in the evening reviewed the chart. The patient slept reasonably previous night. Review of Systems: No CV, GI/, Pulmonary, Eye, ENT system symptoms on review. Reliability poor. Mental Status Exam: Oriented to herself. Insight and judgment, recent and remote memory, attention and concentration, fund of knowledge is poor consistent with her diagnosis mentioned in my initial note. Laboratory Data: Reviewed. Impression: Major neurocognitive disorder Alzheimer vascular with delusion, depression and behavioral disturbance. Anxiety disorder unspecified. Impulse control disorder unspecified. Rest unchanged. Plan: No change from initial note. The patient was quite upset at another patient stating that she was sent here by mistake and she was not a resident here which the other patient was trying to convince her about. She did redirect as I intervened. Continue psychotropics from initial note. Adjust further as clinically indicated. Assessment: Vital Signs/I&O: Vital Signs Date Time Temp Pulse Resp B/P (MAP) Pulse Ox O2 Delivery O2 Flow Rate FiO2 09/08/19 05:51 98.0 60 16 146/80 (102) 92 09/03/19 16:13 Room Air I & O 09/07/19 09/07/19 09/08/19 14:59 22:59 06:59 Intake Total 600 ml 360 ml Balance 600 ml 360 ml Current Medications: Meds: Current Medications Medications (Trade) Dose Ordered Sig/Rosa Elena Route PRN Reason Start Time Stop Time Status Last Admin Dose Admin Quetiapine Fumarate (SEROquel) 12.5 mg 1500 PO 09/07/19 15:00 09/07/19 15:13 I have reviewed the current psychotropics carefully including drug interactions. Risk benefit ratio favors no change other than as noted in my dictated progress note. Diagnosis: Problems: (1) Anxiety disorder (2) Impulse control disorder (3) Dementia, vascular, with depression (4) Dementia, vascular, with delusions (5) Dementia in Alzheimer's disease with depression (6) Dementia in Alzheimer's disease with delusions (7) Major neurocognitive disorder, due to vascular disease, with behavioral disturbance, mild (8) Weakness (9) Altered mental status JAMARCUS CONNELL MD September 08, 2019 07:48
[2019-09-08] MEDS: SERTRALINE 50 MG TABLET. PO SCH (08:17)
[2019-09-08] MEDS: LOSARTAN 50 MG TABLET. PO SCH (08:18)
[2019-09-08] MEDS ORDERED: SERTRALINE 50 MG TABLET. PO SCH (09:00)
[2019-09-08] MEDS: QUEtiapine 25 MG TABLET. PO SCH ×2 (15:00→22:06)
[2019-09-08 15:29] VITALS: BP 150/66
--- NOTE | 2019-09-08 21:52 | PDOC ---
Exam Note: Rudy Note: Please also refer to the separate dictated note~for this date of service dictated separately.~Patient seen individually. Discussed the patient with Nursing staff reviewed the chart.~Reviewed interim history and current functioning. Reviewed vital signs,~Labs/ Radiology~and current medications noted below. Continue current treatment with the changes noted in the dictated addendum note Assessment: Vital Signs/I&O: Vital Signs Date Time Temp Pulse Resp B/P (MAP) Pulse Ox O2 Delivery O2 Flow Rate FiO2 09/08/19 20:53 98.0 92 09/08/19 15:29 74 16 150/66 (94) 09/03/19 16:13 Room Air I & O 09/07/19 09/07/19 09/08/19 15:00 23:00 07:00 Intake Total 600 ml 360 ml Balance 600 ml 360 ml Current Medications: I have reviewed the current psychotropics carefully including drug interactions. Risk benefit ratio favors no change other than as noted in my dictated progress note. Diagnosis: Problems: (1) Anxiety disorder (2) Impulse control disorder (3) Dementia, vascular, with depression (4) Dementia, vascular, with delusions (5) Dementia in Alzheimer's disease with depression (6) Dementia in Alzheimer's disease with delusions (7) Major neurocognitive disorder, due to vascular disease, with behavioral disturbance, mild (8) Weakness (9) Altered mental status JAMARCUS CONNELL MD September 08, 2019 21:52
[2019-09-08] MEDS: DONEPEZIL HCL 10 MG TABLET PO SCH (22:06)
[2019-09-08] MEDS: ACETAMINOPHEN 325 MG TABLET PO PRN (22:10)
[2019-09-09 06:08] VITALS: BP 165/71
[2019-09-09] MEDS: LOSARTAN 50 MG TABLET. PO SCH (08:25)
[2019-09-09] MEDS: SERTRALINE 50 MG TABLET. PO SCH (08:26)
--- NOTE | 2019-09-09 08:54 | PDOC ---
Exam Note: Rudy Note: This note is a late entry for 09/08/2019 covers elements not covered in my initial note. Subjective: The patient was seen face to face in the evening of 09/08/2019. Nursing report was with Mary VILLANUEVA. Discussed the patient with nursing staff in the evening reviewed the chart. The patient slept 8-1/4 hours previous night. She remains confused, anxious, restless, frequently repeating to meet during the individual visit that she just came here to visit. It was a mistake that she has been kept here. Review of Systems: No CV, GI/, Pulmonary, Eye, ENT system symptoms on review. Mental Status Exam: Oriented to herself. Insight and judgment, recent and remote memory, attention and concentration, fund of knowledge is poor consistent with her diagnosis mentioned in my initial note. Laboratory Data: Reviewed. Impression: Major neurocognitive disorder Alzheimer vascular with delusion, depression and behavioral disturbance. Anxiety disorder unspecified. Impulse control disorder unspecified. Rest unchanged. Plan: No change from initial note. Assessment: Vital Signs/I&O: Vital Signs Date Time Temp Pulse Resp B/P (MAP) Pulse Ox O2 Delivery O2 Flow Rate FiO2 09/09/19 08:35 97.6 92 09/09/19 08:25 62 165/71 09/09/19 06:08 14 09/03/19 16:13 Room Air I & O 09/08/19 09/08/19 09/09/19 14:59 22:59 06:59 Intake Total 480 ml 240 ml Balance 480 ml 240 ml Current Medications: I have reviewed the current psychotropics carefully including drug interactions. Risk benefit ratio favors no change other than as noted in my dictated progress note. Diagnosis: Problems: (1) Anxiety disorder (2) Impulse control disorder (3) Dementia, vascular, with depression (4) Dementia, vascular, with delusions (5) Dementia in Alzheimer's disease with depression (6) Dementia in Alzheimer's disease with delusions (7) Major neurocognitive disorder, due to vascular disease, with behavioral disturbance, mild (8) Weakness (9) Altered mental status JAMARCUS CONNELL MD September 09, 2019 08:54
[2019-09-09 08:56] LABS: ALBUMIN 3.2 g/dL (3.4-5.0); CALCIUM 8.8 mg/dL (8.5-10.1); CREATININE 0.9 mg/dL (0.6-1.0); GFR 59.2; POTASSIUM 3.9 mmol/L (3.5-5.1); TOTAL BILIRUBIN 0.4 mg/dL (0.2-1.0); TOTAL PROTEIN 6.3 g/dL (6.4-8.2)
[2019-09-09 09:48] LABS: BASO % 1 % (0-3); EOS # 0.2 x10^3/uL (0.0-0.7); EOS % 3 % (0-3); HEMATOCRIT 35.6 % (36.0-47.0); HEMOGLOBIN 11.8 g/dL (12.0-15.5); LYMPH # 1.3 x10^3/uL (1.0-4.8); LYMPH % 21 % (24-48); MEAN CORPUSCULAR HEMOGLOBIN 32 pg (25-35); MEAN CORPUSCULAR HGB CONC 33 g/dL (31-37); MEAN CORPUSCULAR VOLUME 96 fL (79-100); MONO # 0.5 x10^3/uL (0.0-1.1); MONO % 8 % (0-9); NEUT # 4.2 x10^3uL (1.8-7.7); NEUT % 67 % (31-73); PLATELET COUNT 156 x10^3/uL (140-400); RED BLOOD COUNT 3.73 x10^6/uL (3.50-5.40); RED CELL DISTRIBUTION WIDTH 13.7 % (11.5-14.5); WHITE BLOOD COUNT 6.3 x10^3/uL (4.0-11.0)
[2019-09-09] MEDS: QUEtiapine 25 MG TABLET. PO SCH ×2 (15:00→21:45)
[2019-09-09 15:28] VITALS: BP 148/76
[2019-09-09] MEDS: DONEPEZIL HCL 10 MG TABLET PO SCH (21:44)
--- NOTE | 2019-09-09 21:57 | PDOC ---
Exam Note: Rudy Note: Please also refer to the separate dictated note~for this date of service dictated separately.~Patient seen individually. Discussed the patient with Nursing staff reviewed the chart.~Reviewed interim history and current functioning. Reviewed vital signs,~Labs/ Radiology~and current medications noted below. Continue current treatment with the changes noted in the dictated addendum note Assessment: Vital Signs/I&O: Vital Signs Date Time Temp Pulse Resp B/P (MAP) Pulse Ox O2 Delivery O2 Flow Rate FiO2 09/09/19 20:59 98.4 94 09/09/19 15:28 64 16 148/76 (100) 09/03/19 16:13 Room Air I & O 09/08/19 09/08/19 09/09/19 15:00 23:00 07:00 Intake Total 480 ml 240 ml Balance 480 ml 240 ml Labs: Laboratory Tests Test 09/09/19 07:20 White Blood Count 6.3 x10^3/uL (4.0-11.0) Red Blood Count 3.73 x10^6/uL (3.50-5.40) Hemoglobin 11.8 g/dL (12.0-15.5) L Hematocrit 35.6 % (36.0-47.0) L Mean Corpuscular Volume 96 fL (79-100) Mean Corpuscular Hemoglobin 32 pg (25-35) Mean Corpuscular Hemoglobin Concent 33 g/dL (31-37) Red Cell Distribution Width 13.7 % (11.5-14.5) Platelet Count 156 x10^3/uL (140-400) Neutrophils (%) (Auto) 67 % (31-73) Lymphocytes (%) (Auto) 21 % (24-48) L Monocytes (%) (Auto) 8 % (0-9) Eosinophils (%) (Auto) 3 % (0-3) Basophils (%) (Auto) 1 % (0-3) Neutrophils # (Auto) 4.2 x10^3uL (1.8-7.7) Lymphocytes # (Auto) 1.3 x10^3/uL (1.0-4.8) Monocytes # (Auto) 0.5 x10^3/uL (0.0-1.1) Eosinophils # (Auto) 0.2 x10^3/uL (0.0-0.7) Basophils # (Auto) 0.0 x10^3/uL (0.0-0.2) Sodium Level 141 mmol/L (136-145) Potassium Level 3.9 mmol/L (3.5-5.1) Chloride Level 104 mmol/L (98-107) Carbon Dioxide Level 33 mmol/L (21-32) H Anion Gap 4 (6-14) L Blood Urea Nitrogen 26 mg/dL (7-20) H Creatinine 0.9 mg/dL (0.6-1.0) Estimated GFR (Cockcroft-Gault) 59.2 BUN/Creatinine Ratio 29 (6-20) H Glucose Level 87 mg/dL (70-99) Calcium Level 8.8 mg/dL (8.5-10.1) Total Bilirubin 0.4 mg/dL (0.2-1.0) Aspartate Amino Transferase (AST) 17 U/L (15-37) Alanine Aminotransferase (ALT) 18 U/L (14-59) Alkaline Phosphatase 46 U/L (46-116) Total Protein 6.3 g/dL (6.4-8.2) L Albumin 3.2 g/dL (3.4-5.0) L Albumin/Globulin Ratio 1.0 (1.0-1.7) Current Medications: I have reviewed the current psychotropics carefully including drug interactions. Risk benefit ratio favors no change other than as noted in my dictated progress note. Diagnosis: Problems: (1) Anxiety disorder (2) Impulse control disorder (3) Dementia, vascular, with depression (4) Dementia, vascular, with delusions (5) Dementia in Alzheimer's disease with depression (6) Dementia in Alzheimer's disease with delusions (7) Major neurocognitive disorder, due to vascular disease, with behavioral disturbance, mild (8) Weakness (9) Altered mental status JAMARCUS CNONELL MD September 09, 2019 21:57
[2019-09-10] MEDS: ACETAMINOPHEN 325 MG TABLET PO PRN (05:20)
[2019-09-10 06:01] VITALS: BP 186/76
[2019-09-10] MEDS: SERTRALINE 50 MG TABLET. PO SCH (08:24)
[2019-09-10] MEDS: LOSARTAN 50 MG TABLET. PO SCH (08:24)
[2019-09-10] MEDS: LORazepam 0.5 MG TABLET PO PRN (10:06)
[2019-09-10] MEDS ORDERED: ATENOLOL 50 MG TABLET PO ONE (12:30)
[2019-09-10 16:22] VITALS: BP 152/73
[2019-09-10] MEDS: QUEtiapine 25 MG TABLET. PO SCH ×2 (16:47→20:02)
[2019-09-10] MEDS: DONEPEZIL HCL 10 MG TABLET PO SCH (20:02)
--- NOTE | 2019-09-10 22:07 | PDOC ---
Exam Note: Rudy Note: Please also refer to the separate dictated note~for this date of service dictated separately.~Patient seen individually. Discussed the patient with Nursing staff reviewed the chart.~Reviewed interim history and current functioning. Reviewed vital signs,~Labs/ Radiology~and current medications noted below. Continue current treatment with the changes noted in the dictated addendum note Assessment: Vital Signs/I&O: Vital Signs Date Time Temp Pulse Resp B/P (MAP) Pulse Ox O2 Delivery O2 Flow Rate FiO2 09/10/19 21:07 98.2 95 09/10/19 16:22 61 152/73 (99) 09/10/19 06:01 16 I & O 09/09/19 09/09/19 09/10/19 15:00 23:00 07:00 Intake Total 1080 ml 240 ml Balance 1080 ml 240 ml Current Medications: Meds: Current Medications Medications (Trade) Dose Ordered Sig/Rosa Elena Route PRN Reason Start Time Stop Time Status Last Admin Dose Admin Atenolol (Tenormin) 50 mg 1X ONCE PO 09/10/19 12:30 09/10/19 12:31 DC 09/10/19 12:36 I have reviewed the current psychotropics carefully including drug interactions. Risk benefit ratio favors no change other than as noted in my dictated progress note. Diagnosis: Problems: (1) Anxiety disorder (2) Impulse control disorder (3) Dementia, vascular, with depression (4) Dementia, vascular, with delusions (5) Dementia in Alzheimer's disease with depression (6) Dementia in Alzheimer's disease with delusions (7) Major neurocognitive disorder, due to vascular disease, with behavioral disturbance, mild (8) Weakness (9) Altered mental status JAMARCUS CONNELL MD September 10, 2019 22:07
[2019-09-11 06:19] VITALS: BP 120/69
--- NOTE | 2019-09-11 07:56 | PDOC ---
Exam Note: Rudy Note: This note is a late entry for 09/09/2019 covers elements not covered in my initial note. Subjective: The patient was seen face to face in the evening of 09/09/2019. Nursing report was with Mary VILLANUEVA. Discussed the patient with nursing staff in the evening reviewed the chart. The patient slept 6-3/4 hours previous night. Previous night she was exit seeking, anxious, restless during the day on the 07/10/2019 but redirectable. Review of Systems: No CV, GI/, Pulmonary, Eye, ENT system symptoms on review. Mental Status Exam: Oriented to herself. Insight and judgment, recent and remote memory, attention and concentration, fund of knowledge is poor consistent with her diagnosis mentioned in my initial note. Laboratory Data: Reviewed. Impression: Major neurocognitive disorder Alzheimer vascular with delusion, depression and behavioral disturbance. Anxiety disorder unspecified. Impulse control disorder unspecified. Rest unchanged. Plan: No change from initial note. Assessment: Vital Signs/I&O: Vital Signs Date Time Temp Pulse Resp B/P (MAP) Pulse Ox O2 Delivery O2 Flow Rate FiO2 09/11/19 06:19 98.0 60 18 120/69 (86) 90 I & O 09/10/19 09/10/19 09/11/19 15:00 23:00 07:00 Intake Total 720 ml 320 ml Balance 720 ml 320 ml Current Medications: Meds: Current Medications Medications (Trade) Dose Ordered Sig/Rosa Elena Route PRN Reason Start Time Stop Time Status Last Admin Dose Admin Atenolol (Tenormin) 50 mg 1X ONCE PO 09/10/19 12:30 09/10/19 12:31 DC 09/10/19 12:36 I have reviewed the current psychotropics carefully including drug interactions. Risk benefit ratio favors no change other than as noted in my dictated progress note. Diagnosis: Problems: (1) Anxiety disorder (2) Impulse control disorder (3) Dementia, vascular, with depression (4) Dementia, vascular, with delusions (5) Dementia in Alzheimer's disease with depression (6) Dementia in Alzheimer's disease with delusions (7) Major neurocognitive disorder, due to vascular disease, with behavioral disturbance, mild (8) Weakness (9) Altered mental status JAMARCUS CONNELL MD Sep 11, 2019 07:56
[2019-09-11] MEDS: ATENOLOL 50 MG TABLET PO SCH (08:25)
[2019-09-11] MEDS: LOSARTAN 50 MG TABLET. PO SCH (08:25)
[2019-09-11] MEDS: SERTRALINE 50 MG TABLET. PO SCH (08:26)
[2019-09-11] MEDS: QUEtiapine 25 MG TABLET. PO SCH ×2 (14:34→19:44)
[2019-09-11 15:43] VITALS: BP 101/65
[2019-09-11] MEDS: DONEPEZIL HCL 10 MG TABLET PO SCH (19:44)
--- NOTE | 2019-09-11 22:06 | PDOC ---
Exam Note: Rudy Note: Please also refer to the separate dictated note~for this date of service dictated separately.~Patient seen individually. Discussed the patient with Nursing staff reviewed the chart.~Reviewed interim history and current functioning. Reviewed vital signs,~Labs/ Radiology~and current medications noted below. Continue current treatment with the changes noted in the dictated addendum note Assessment: Vital Signs/I&O: Vital Signs Date Time Temp Pulse Resp B/P (MAP) Pulse Ox O2 Delivery O2 Flow Rate FiO2 09/11/19 18:34 98.3 09/11/19 15:43 61 18 101/65 (77) 93 I & O 09/10/19 09/10/19 09/11/19 15:00 23:00 07:00 Intake Total 720 ml 320 ml Balance 720 ml 320 ml Current Medications: Meds: Current Medications Medications (Trade) Dose Ordered Sig/Rosa Elena Route PRN Reason Start Time Stop Time Status Last Admin Dose Admin Atenolol (Tenormin) 50 mg DAILY PO 09/11/19 09:00 09/11/19 08:25 I have reviewed the current psychotropics carefully including drug interactions. Risk benefit ratio favors no change other than as noted in my dictated progress note. Diagnosis: Problems: (1) Anxiety disorder (2) Impulse control disorder (3) Dementia, vascular, with depression (4) Dementia, vascular, with delusions (5) Dementia in Alzheimer's disease with depression (6) Dementia in Alzheimer's disease with delusions (7) Major neurocognitive disorder, due to vascular disease, with behavioral disturbance, mild (8) Weakness (9) Altered mental status JAMARCUS CONNELL MD Sep 11, 2019 22:06
[2019-09-12 06:37] VITALS: BP 126/71
--- NOTE | 2019-09-12 06:49 | PDOC ---
Exam Note: Rudy Note: This note is a late entry for 09/10/2019 covers elements not covered in my initial note. Subjective: The patient was seen face to face in the evening of 09/10/2019. Nursing report was with Morena VILLANUEVA. Discussed the patient with nursing staff in the evening reviewed the chart. The patient slept 7-1/4 hours previous night. The patients blood pressure was somewhat elevated and we will monitor this and defer to Dr. Galeano/Dr. Magana. She has been quiet, less anxious, confused, more-so with owning. Review of Systems: No CV, GI/, Pulmonary, Eye, ENT system symptoms on review. Mental Status Exam: Oriented to herself. Insight and judgment, recent and remote memory, attention and concentration, fund of knowledge is poor consistent with her diagnosis mentioned in my initial note. Laboratory Data: Reviewed. Impression: Major neurocognitive disorder Alzheimer vascular with delusion, depression and behavioral disturbance. Anxiety disorder unspecified. Impulse control disorder unspecified. Rest unchanged. Plan: No change from initial note. Assessment: Vital Signs/I&O: Vital Signs Date Time Temp Pulse Resp B/P (MAP) Pulse Ox O2 Delivery O2 Flow Rate FiO2 09/12/19 06:37 98.2 62 20 126/71 (89) 94 I & O 09/11/19 09/11/19 09/12/19 15:00 23:00 07:00 Intake Total 840 ml 360 ml Balance 840 ml 360 ml Current Medications: Meds: Current Medications Medications (Trade) Dose Ordered Sig/Rosa Elena Route PRN Reason Start Time Stop Time Status Last Admin Dose Admin Atenolol (Tenormin) 50 mg DAILY PO 09/11/19 09:00 09/11/19 08:25 I have reviewed the current psychotropics carefully including drug interactions. Risk benefit ratio favors no change other than as noted in my dictated progress note. Diagnosis: Problems: (1) Anxiety disorder (2) Impulse control disorder (3) Dementia, vascular, with depression (4) Dementia, vascular, with delusions (5) Dementia in Alzheimer's disease with depression (6) Dementia in Alzheimer's disease with delusions (7) Major neurocognitive disorder, due to vascular disease, with behavioral disturbance, mild (8) Weakness (9) Altered mental status JAMARCUS CONNELL MD Sep 12, 2019 06:49
[2019-09-12 07:43] LABS: BASO % 1 % (0-3); EOS # 0.2 x10^3/uL (0.0-0.7); EOS % 2 % (0-3); HEMATOCRIT 38.3 % (36.0-47.0); HEMOGLOBIN 12.7 g/dL (12.0-15.5); LYMPH # 1.3 x10^3/uL (1.0-4.8); LYMPH % 14 % (24-48); MEAN CORPUSCULAR HEMOGLOBIN 32 pg (25-35); MEAN CORPUSCULAR HGB CONC 33 g/dL (31-37); MEAN CORPUSCULAR VOLUME 96 fL (79-100); MONO # 0.6 x10^3/uL (0.0-1.1); MONO % 7 % (0-9); NEUT # 6.8 x10^3uL (1.8-7.7); NEUT % 77 % (31-73); PLATELET COUNT 157 x10^3/uL (140-400); RED BLOOD COUNT 3.99 x10^6/uL (3.50-5.40); RED CELL DISTRIBUTION WIDTH 13.8 % (11.5-14.5); WHITE BLOOD COUNT 8.9 x10^3/uL (4.0-11.0)
[2019-09-12 07:49] LABS: ALBUMIN 3.6 g/dL (3.4-5.0); ALBUMIN/GLOBULIN RATIO 1.1 (1.0-1.7); CALCIUM 9.5 mg/dL (8.5-10.1); CREATININE 0.9 mg/dL (0.6-1.0); GFR 59.2; POTASSIUM 4.3 mmol/L (3.5-5.1); TOTAL BILIRUBIN 0.3 mg/dL (0.2-1.0); TOTAL PROTEIN 6.9 g/dL (6.4-8.2)
[2019-09-12] MEDS: LOSARTAN 50 MG TABLET. PO SCH (09:19)
[2019-09-12] MEDS: ATENOLOL 50 MG TABLET PO SCH (09:19)
[2019-09-12] MEDS: SERTRALINE 50 MG TABLET. PO SCH (09:20)
[2019-09-12] MEDS: QUEtiapine 25 MG TABLET. PO SCH ×2 (13:59→21:04)
[2019-09-12 15:57] VITALS: BP 129/64
[2019-09-12] MEDS: DONEPEZIL HCL 10 MG TABLET PO SCH (21:04)
--- NOTE | 2019-09-12 21:39 | PDOC ---
Exam Note: Rudy Note: Please also refer to the separate dictated note~for this date of service dictated separately.~Patient seen individually. Discussed the patient with Nursing staff reviewed the chart.~Reviewed interim history and current functioning. Reviewed vital signs,~Labs/ Radiology~and current medications noted below. Continue current treatment with the changes noted in the dictated addendum note Assessment: Vital Signs/I&O: Vital Signs Date Time Temp Pulse Resp B/P (MAP) Pulse Ox O2 Delivery O2 Flow Rate FiO2 09/12/19 18:19 98.3 09/12/19 15:57 60 16 129/64 (85) 93 I & O 09/11/19 09/11/19 09/12/19 14:59 22:59 06:59 Intake Total 840 ml 360 ml Balance 840 ml 360 ml Labs: Laboratory Tests Test 09/12/19 07:22 White Blood Count 8.9 x10^3/uL (4.0-11.0) Red Blood Count 3.99 x10^6/uL (3.50-5.40) Hemoglobin 12.7 g/dL (12.0-15.5) Hematocrit 38.3 % (36.0-47.0) Mean Corpuscular Volume 96 fL (79-100) Mean Corpuscular Hemoglobin 32 pg (25-35) Mean Corpuscular Hemoglobin Concent 33 g/dL (31-37) Red Cell Distribution Width 13.8 % (11.5-14.5) Platelet Count 157 x10^3/uL (140-400) Neutrophils (%) (Auto) 77 % (31-73) H Lymphocytes (%) (Auto) 14 % (24-48) L Monocytes (%) (Auto) 7 % (0-9) Eosinophils (%) (Auto) 2 % (0-3) Basophils (%) (Auto) 1 % (0-3) Neutrophils # (Auto) 6.8 x10^3uL (1.8-7.7) Lymphocytes # (Auto) 1.3 x10^3/uL (1.0-4.8) Monocytes # (Auto) 0.6 x10^3/uL (0.0-1.1) Eosinophils # (Auto) 0.2 x10^3/uL (0.0-0.7) Basophils # (Auto) 0.0 x10^3/uL (0.0-0.2) Sodium Level 140 mmol/L (136-145) Potassium Level 4.3 mmol/L (3.5-5.1) Chloride Level 102 mmol/L (98-107) Carbon Dioxide Level 34 mmol/L (21-32) H Anion Gap 4 (6-14) L Blood Urea Nitrogen 29 mg/dL (7-20) H Creatinine 0.9 mg/dL (0.6-1.0) Estimated GFR (Cockcroft-Gault) 59.2 BUN/Creatinine Ratio 32 (6-20) H Glucose Level 91 mg/dL (70-99) Calcium Level 9.5 mg/dL (8.5-10.1) Total Bilirubin 0.3 mg/dL (0.2-1.0) Aspartate Amino Transferase (AST) 25 U/L (15-37) Alanine Aminotransferase (ALT) 27 U/L (14-59) Alkaline Phosphatase 54 U/L (46-116) Total Protein 6.9 g/dL (6.4-8.2) Albumin 3.6 g/dL (3.4-5.0) Albumin/Globulin Ratio 1.1 (1.0-1.7) Current Medications: I have reviewed the current psychotropics carefully including drug interactions. Risk benefit ratio favors no change other than as noted in my dictated progress note. Diagnosis: Problems: (1) Anxiety disorder (2) Impulse control disorder (3) Dementia, vascular, with depression (4) Dementia, vascular, with delusions (5) Dementia in Alzheimer's disease with depression (6) Dementia in Alzheimer's disease with delusions (7) Major neurocognitive disorder, due to vascular disease, with behavioral disturbance, mild (8) Weakness (9) Altered mental status JAMARCUS CONNELL MD Sep 12, 2019 21:39
[2019-09-13 06:09] VITALS: BP 158/77
--- NOTE | 2019-09-13 07:18 | PDOC ---
Exam Note: Rudy Note: This note is a late entry for 09/11/2019 covers elements not covered in my initial note. Subjective: The patient was seen face to face in the evening of 09/11/2019. Nursing report was with Owen VILLANUEVA. She slept 7-3/4 hours previous night. Overall the patient remains confused but redirectable, less anxious, pleasant, smiling as I met with her. No behavioral problems. She was anxious, somewhat agitated in the morning, better later in the afternoon, little more confused in the evening as I met with her. Review of Systems: No CV, GI/, Pulmonary, Eye, ENT system symptoms on review. Mental Status Exam: Oriented to herself. Insight and judgment, recent and remote memory, attention and concentration, fund of knowledge is poor consistent with her diagnosis mentioned in my initial note. Laboratory Data: Reviewed. Impression: Major neurocognitive disorder Alzheimer vascular with delusion, depression and behavioral disturbance. Anxiety disorder unspecified. Impulse control disorder unspecified. Rest unchanged. Plan: Continue psychotropics from initial note. Assessment: Vital Signs/I&O: Vital Signs Date Time Temp Pulse Resp B/P (MAP) Pulse Ox O2 Delivery O2 Flow Rate FiO2 09/13/19 06:09 97.6 59 18 158/77 (104) 90 I & O 09/12/19 09/12/19 09/13/19 15:00 23:00 07:00 Intake Total 840 ml 340 ml Balance 840 ml 340 ml Labs: Laboratory Tests Test 09/12/19 07:22 White Blood Count 8.9 x10^3/uL (4.0-11.0) Red Blood Count 3.99 x10^6/uL (3.50-5.40) Hemoglobin 12.7 g/dL (12.0-15.5) Hematocrit 38.3 % (36.0-47.0) Mean Corpuscular Volume 96 fL (79-100) Mean Corpuscular Hemoglobin 32 pg (25-35) Mean Corpuscular Hemoglobin Concent 33 g/dL (31-37) Red Cell Distribution Width 13.8 % (11.5-14.5) Platelet Count 157 x10^3/uL (140-400) Neutrophils (%) (Auto) 77 % (31-73) H Lymphocytes (%) (Auto) 14 % (24-48) L Monocytes (%) (Auto) 7 % (0-9) Eosinophils (%) (Auto) 2 % (0-3) Basophils (%) (Auto) 1 % (0-3) Neutrophils # (Auto) 6.8 x10^3uL (1.8-7.7) Lymphocytes # (Auto) 1.3 x10^3/uL (1.0-4.8) Monocytes # (Auto) 0.6 x10^3/uL (0.0-1.1) Eosinophils # (Auto) 0.2 x10^3/uL (0.0-0.7) Basophils # (Auto) 0.0 x10^3/uL (0.0-0.2) Sodium Level 140 mmol/L (136-145) Potassium Level 4.3 mmol/L (3.5-5.1) Chloride Level 102 mmol/L (98-107) Carbon Dioxide Level 34 mmol/L (21-32) H Anion Gap 4 (6-14) L Blood Urea Nitrogen 29 mg/dL (7-20) H Creatinine 0.9 mg/dL (0.6-1.0) Estimated GFR (Cockcroft-Gault) 59.2 BUN/Creatinine Ratio 32 (6-20) H Glucose Level 91 mg/dL (70-99) Calcium Level 9.5 mg/dL (8.5-10.1) Total Bilirubin 0.3 mg/dL (0.2-1.0) Aspartate Amino Transferase (AST) 25 U/L (15-37) Alanine Aminotransferase (ALT) 27 U/L (14-59) Alkaline Phosphatase 54 U/L (46-116) Total Protein 6.9 g/dL (6.4-8.2) Albumin 3.6 g/dL (3.4-5.0) Albumin/Globulin Ratio 1.1 (1.0-1.7) Current Medications: I have reviewed the current psychotropics carefully including drug interactions. Risk benefit ratio favors no change other than as noted in my dictated progress note. Diagnosis: Problems: (1) Anxiety disorder (2) Impulse control disorder (3) Dementia, vascular, with depression (4) Dementia, vascular, with delusions (5) Dementia in Alzheimer's disease with depression (6) Dementia in Alzheimer's disease with delusions (7) Major neurocognitive disorder, due to vascular disease, with behavioral disturbance, mild (8) Weakness (9) Altered mental status JAMARCUS CONNELL MD Sep 13, 2019 07:18
[2019-09-13] MEDS: SERTRALINE 50 MG TABLET. PO SCH (08:31)
[2019-09-13] MEDS: ATENOLOL 50 MG TABLET PO SCH (08:31)
[2019-09-13] MEDS: LOSARTAN 50 MG TABLET. PO SCH (08:32)
[2019-09-13] MEDS: QUEtiapine 25 MG TABLET. PO SCH ×2 (14:13→20:23)
[2019-09-13] MEDS: LORazepam 0.5 MG TABLET PO PRN (15:39)
[2019-09-13 16:19] VITALS: BP 137/73
[2019-09-13] MEDS: MIRTAZAPINE 7.5 MG TABLET. PO SCH (20:23)
[2019-09-13] MEDS: DONEPEZIL HCL 10 MG TABLET PO SCH (20:24)
--- NOTE | 2019-09-13 22:09 | PDOC ---
Exam Note: Rudy Note: Please also refer to the separate dictated note~for this date of service dictated separately.~Patient seen individually. Discussed the patient with Nursing staff reviewed the chart.~Reviewed interim history and current functioning. Reviewed vital signs,~Labs/ Radiology~and current medications noted below. Continue current treatment with the changes noted in the dictated addendum note Assessment: Vital Signs/I&O: Vital Signs Date Time Temp Pulse Resp B/P (MAP) Pulse Ox O2 Delivery O2 Flow Rate FiO2 09/13/19 20:24 89.2 92 09/13/19 16:19 60 18 137/73 (94) I & O 09/12/19 09/12/19 09/13/19 15:00 23:00 07:00 Intake Total 840 ml 340 ml Balance 840 ml 340 ml Current Medications: Meds: Current Medications Medications (Trade) Dose Ordered Sig/Rosa Elena Route PRN Reason Start Time Stop Time Status Last Admin Dose Admin Mirtazapine (Remeron) 7.5 mg QHS PO 09/13/19 21:00 09/13/19 20:23 I have reviewed the current psychotropics carefully including drug interactions. Risk benefit ratio favors no change other than as noted in my dictated progress note. Diagnosis: Problems: (1) Anxiety disorder (2) Impulse control disorder (3) Dementia, vascular, with depression (4) Dementia, vascular, with delusions (5) Dementia in Alzheimer's disease with depression (6) Dementia in Alzheimer's disease with delusions (7) Major neurocognitive disorder, due to vascular disease, with behavioral disturbance, mild (8) Weakness (9) Altered mental status JAMARCUS CONNELL MD Sep 13, 2019 22:09
--- NOTE | 2019-09-13 22:09 | PDOC ---
Exam Note: Rudy Note: This note is a late entry for 09/12/2019 covers elements not covered in my initial note. Subjective: The patient was seen face to face in the evening of 09/12/2019. Nursing report was with Owen VILLANUEVA. She slept 6 hours previous night. She has had two loose stools the day before. She gets anxious, confused but very pleasant, verbal, interactive, waving to me as I met with her in the evening of 09/12/2019. Review of Systems: No CV, GI/, Pulmonary, Eye, ENT system symptoms on review. Mental Status Exam: Oriented to herself. Insight and judgment, recent and remote memory, attention and concentration, fund of knowledge is poor consistent with her diagnosis mentioned in my initial note. Laboratory Data: Reviewed. Impression: Major neurocognitive disorder Alzheimer vascular with delusion, depression and behavioral disturbance. Anxiety disorder unspecified. Impulse control disorder unspecified. Rest unchanged. Plan: Continue psychotropics from initial note. Assessment: Vital Signs/I&O: Vital Signs Date Time Temp Pulse Resp B/P (MAP) Pulse Ox O2 Delivery O2 Flow Rate FiO2 09/13/19 20:24 89.2 92 09/13/19 16:19 60 18 137/73 (94) I & O 09/12/19 09/12/19 09/13/19 15:00 23:00 07:00 Intake Total 840 ml 340 ml Balance 840 ml 340 ml Current Medications: Meds: Current Medications Medications (Trade) Dose Ordered Sig/Rosa Elena Route PRN Reason Start Time Stop Time Status Last Admin Dose Admin Mirtazapine (Remeron) 7.5 mg QHS PO 09/13/19 21:00 09/13/19 20:23 I have reviewed the current psychotropics carefully including drug interactions. Risk benefit ratio favors no change other than as noted in my dictated progress note. Diagnosis: Problems: (1) Anxiety disorder (2) Impulse control disorder (3) Dementia, vascular, with depression (4) Dementia, vascular, with delusions (5) Dementia in Alzheimer's disease with depression (6) Dementia in Alzheimer's disease with delusions (7) Major neurocognitive disorder, due to vascular disease, with behavioral disturbance, mild (8) Weakness (9) Altered mental status JAMARCUS CONNELL MD Sep 13, 2019 22:09
[2019-09-14 06:13] VITALS: BP 173/80
[2019-09-14 07:28] LABS: ALBUMIN 3.1 g/dL (3.4-5.0); CALCIUM 8.7 mg/dL (8.5-10.1); CREATININE 0.9 mg/dL (0.6-1.0); GFR 59.2; POTASSIUM 4.1 mmol/L (3.5-5.1); TOTAL BILIRUBIN 0.3 mg/dL (0.2-1.0); TOTAL PROTEIN 6.3 g/dL (6.4-8.2)
[2019-09-14] MEDS: SERTRALINE 50 MG TABLET. PO SCH (08:24)
[2019-09-14] MEDS: ATENOLOL 50 MG TABLET PO SCH (08:24)
[2019-09-14] MEDS: LOSARTAN 50 MG TABLET. PO SCH (08:26)
[2019-09-14 09:28] LABS: BASO # 0.1 x10^3/uL (0.0-0.2); BASO % 1 % (0-3); EOS # 0.2 x10^3/uL (0.0-0.7); EOS % 3 % (0-3); HEMATOCRIT 36.2 % (36.0-47.0); HEMOGLOBIN 12.1 g/dL (12.0-15.5); LYMPH # 1.4 x10^3/uL (1.0-4.8); LYMPH % 20 % (24-48); MEAN CORPUSCULAR HEMOGLOBIN 32 pg (25-35); MEAN CORPUSCULAR HGB CONC 33 g/dL (31-37); MEAN CORPUSCULAR VOLUME 96 fL (79-100); MONO # 0.6 x10^3/uL (0.0-1.1); MONO % 8 % (0-9); NEUT # 4.7 x10^3uL (1.8-7.7); NEUT % 67 % (31-73); PLATELET COUNT 147 x10^3/uL (140-400); RED BLOOD COUNT 3.76 x10^6/uL (3.50-5.40); WHITE BLOOD COUNT 7.1 x10^3/uL (4.0-11.0)
[2019-09-14 11:20] LABS: PLT ESTIMATE DECREASED (ADEQUATE)
[2019-09-14] MEDS: QUEtiapine 25 MG TABLET. PO SCH ×2 (14:41→20:38)
[2019-09-14 15:52] VITALS: BP 161/75
[2019-09-14] MEDS: DIVALPROEX 125 MG CAP.SPRINK PO SCH (16:53)
[2019-09-14] MEDS ORDERED: DIVALPROEX 125 MG CAP.SPRINK PO SCH (17:00)
[2019-09-14] MEDS: MIRTAZAPINE 7.5 MG TABLET. PO SCH (20:38)
[2019-09-14] MEDS: DONEPEZIL HCL 10 MG TABLET PO SCH (20:38)
--- NOTE | 2019-09-14 22:02 | PDOC ---
Exam Note: Rudy Note: Please also refer to the separate dictated note~for this date of service dictated separately.~Patient seen individually. Discussed the patient with Nursing staff reviewed the chart.~Reviewed interim history and current functioning. Reviewed vital signs,~Labs/ Radiology~and current medications noted below. Continue current treatment with the changes noted in the dictated addendum note Assessment: Vital Signs/I&O: Vital Signs Date Time Temp Pulse Resp B/P (MAP) Pulse Ox O2 Delivery O2 Flow Rate FiO2 09/14/19 21:59 98.1 91 09/14/19 15:52 60 161/75 (103) 09/14/19 06:13 18 I & O 09/13/19 09/13/19 09/14/19 15:00 23:00 07:00 Intake Total 720 ml 580 ml Balance 720 ml 580 ml Labs: Laboratory Tests Test 09/14/19 06:35 White Blood Count 7.1 x10^3/uL (4.0-11.0) Red Blood Count 3.76 x10^6/uL (3.50-5.40) Hemoglobin 12.1 g/dL (12.0-15.5) Hematocrit 36.2 % (36.0-47.0) Mean Corpuscular Volume 96 fL (79-100) Mean Corpuscular Hemoglobin 32 pg (25-35) Mean Corpuscular Hemoglobin Concent 33 g/dL (31-37) Red Cell Distribution Width 14.0 % (11.5-14.5) Platelet Count 147 x10^3/uL (140-400) Neutrophils (%) (Auto) 67 % (31-73) Lymphocytes (%) (Auto) 20 % (24-48) L Monocytes (%) (Auto) 8 % (0-9) Eosinophils (%) (Auto) 3 % (0-3) Basophils (%) (Auto) 1 % (0-3) Neutrophils # (Auto) 4.7 x10^3uL (1.8-7.7) Lymphocytes # (Auto) 1.4 x10^3/uL (1.0-4.8) Monocytes # (Auto) 0.6 x10^3/uL (0.0-1.1) Eosinophils # (Auto) 0.2 x10^3/uL (0.0-0.7) Basophils # (Auto) 0.1 x10^3/uL (0.0-0.2) Platelet Estimate Decreased (ADEQUATE) Sodium Level 141 mmol/L (136-145) Potassium Level 4.1 mmol/L (3.5-5.1) Chloride Level 105 mmol/L (98-107) Carbon Dioxide Level 32 mmol/L (21-32) Anion Gap 4 (6-14) L Blood Urea Nitrogen 26 mg/dL (7-20) H Creatinine 0.9 mg/dL (0.6-1.0) Estimated GFR (Cockcroft-Gault) 59.2 BUN/Creatinine Ratio 29 (6-20) H Glucose Level 89 mg/dL (70-99) Calcium Level 8.7 mg/dL (8.5-10.1) Total Bilirubin 0.3 mg/dL (0.2-1.0) Aspartate Amino Transferase (AST) 19 U/L (15-37) Alanine Aminotransferase (ALT) 23 U/L (14-59) Alkaline Phosphatase 46 U/L (46-116) Total Protein 6.3 g/dL (6.4-8.2) L Albumin 3.1 g/dL (3.4-5.0) L Albumin/Globulin Ratio 1.0 (1.0-1.7) Current Medications: Meds: Current Medications Medications (Trade) Dose Ordered Sig/Rosa Elena Route PRN Reason Start Time Stop Time Status Last Admin Dose Admin Divalproex Sodium (Depakote Sprinkles) 125 mg 0900,1700 PO 09/14/19 17:00 09/14/19 16:53 I have reviewed the current psychotropics carefully including drug interactions. Risk benefit ratio favors no change other than as noted in my dictated progress note. Diagnosis: Problems: (1) Anxiety disorder (2) Impulse control disorder (3) Dementia, vascular, with depression (4) Dementia, vascular, with delusions (5) Dementia in Alzheimer's disease with depression (6) Dementia in Alzheimer's disease with delusions (7) Major neurocognitive disorder, due to vascular disease, with behavioral disturbance, mild (8) Weakness (9) Altered mental status JAMARCUS CONNELL MD Sep 14, 2019 22:02
--- NOTE | 2019-09-15 02:01 | PN ---
DATE: 09/14/2019 SUBJECTIVE: The patient was seen today as the nursing staffs are concerned that her left lower extremity continued to be swollen, although her right lower extremity has much improved now. On questioning her, the patient denied any complaint, in particular denied any chest pain, shortness of breath, cough or phlegm. When I examined her, she looked somewhat pale, no jaundice, cyanosis or thyromegaly. No jugular venous distention. No lower limb edema. However, her left lower extremity is definitely more swollen. She has also more prominent varicose veins. OBJECTIVE: VITAL SIGNS: Her heart rate was 60, blood pressure was 161/75, temperature was 97.6, respiratory rate was 18 and oxygen saturation was 92%. HEAD, EYES, EARS, NOSE AND THROAT: Normocephalic, atraumatic. NECK: Supple. HEART: Showed normal first and second heart sounds with harsh ejection systolic murmur, best heard in the right second intercostal space. CHEST: Shows central trachea, equal bilateral expansion, air entry. ____ bilateral crepitation. I could not appreciate any rhonchi. ABDOMEN: Slightly distended, soft, nontender. NEUROLOGIC: She is awake, alert, responding appropriately. All cranial nerves intact. She moves extremities without difficulty. She ambulates without assistance or assistive devices. EXTREMITIES: Left lower extremity showed no clubbing or cyanosis. Her left lower extremity is definitely more swollen; however, she has also more prominent varicose veins. LABORATORY DATA: Showed a serum sodium 141, potassium 4.1, chloride 105, bicarbonate 32, anion gap of 4, BUN 26, creatinine 0.9, estimated GFR was 59 mL per minute. Her glucose was 89, calcium was 8.7. Her white cell count was 7000, hemoglobin 12, hematocrit 36, MCV 96 and platelet count of 157,000. Her chest x-ray showed that she has cardiomegaly and enlarged central pulmonary arteries, which can be seen with pulmonary arterial hypertension. PLAN: My plan is to arrange for her to have a venous Doppler ultrasound of her left lower extremity as her left leg is more swollen than the right. JAMES SALMERON MD DR: YESY/dario JOB#: [id number] / [id number]
[2019-09-15 06:37] VITALS: BP 155/77
--- NOTE | 2019-09-15 07:38 | PDOC ---
Exam Note: Rudy Note: This note is a late entry for 09/13/2019 covers elements not covered in my initial note. Subjective: The patient was seen face to face in the evening of 09/13/2019. Nursing report was with Owen RN. She slept 7-1/2 hours previous night. She does seemed to have sundowning, gets worse cognition. Mood lability starting in the afternoon. Received Zyprexa at 14.15 and at 15.40 she got another Zyprexa and Ativan p.r.n. She is exit seeking, checking the doors. Review of Systems: No CV, , pulmonary, eye, ENT system symptoms on review. Mental Status Exam: Oriented to herself. Insight and judgment, recent and remote memory, attention and concentration, fund of knowledge is poor consistent with her diagnoses. Laboratory Data: Reviewed. Impression: Major neurocognitive disorder Alzheimer vascular with delusion, depression and behavioral disturbance. Anxiety disorder unspecified. Impulse control disorder unspecified. Rest unchanged. Plan: Continue psychotropics from initial note. Assessment: Vital Signs/I&O: Vital Signs Date Time Temp Pulse Resp B/P (MAP) Pulse Ox O2 Delivery O2 Flow Rate FiO2 09/15/19 06:37 98.0 81 16 155/77 (103) 92 I & O 09/14/19 09/14/19 09/15/19 15:00 23:00 07:00 Intake Total 540 ml 340 ml Balance 540 ml 340 ml Current Medications: Meds: Current Medications Medications (Trade) Dose Ordered Sig/Rosa Elena Route PRN Reason Start Time Stop Time Status Last Admin Dose Admin Divalproex Sodium (Depakote Sprinkles) 125 mg 0900,1700 PO 09/14/19 17:00 09/14/19 16:53 I have reviewed the current psychotropics carefully including drug interactions. Risk benefit ratio favors no change other than as noted in my dictated progress note. Diagnosis: Problems: (1) Anxiety disorder (2) Impulse control disorder (3) Dementia, vascular, with depression (4) Dementia, vascular, with delusions (5) Dementia in Alzheimer's disease with depression (6) Dementia in Alzheimer's disease with delusions (7) Major neurocognitive disorder, due to vascular disease, with behavioral disturbance, mild JAMARCUS CONNELL MD Sep 15, 2019 07:38
--- NOTE | 2019-09-15 07:56 | PDOC ---
Exam Note: Rudy Note: This note is a late entry for 09/14/2019 covers elements not covered in my initial note. Subjective: The patient was seen face to face in the morning of 09/14/2019 with treatment team meeting with Carolyne VILLANUEVA, Maryan Mariscal and Paula (social service staff) and [facility]. She is sleeping 7-1/2 hours previous night. Average slept 8-1/4 hours. Appetite is 80%. She is pleasant, cooperative, confused, takes her medications, wandering. She does live in a facility where they use a [employer] and a more secure placement may be needed. Review of Systems: No CV, , pulmonary, eye, ENT system symptoms on review. Mental Status Exam: Oriented to herself. Insight and judgment, recent and remote memory, attention and concentration, fund of knowledge is poor consistent with her diagnoses mentioned in my initial note. Laboratory Data: Reviewed. Impression: Major neurocognitive disorder Alzheimer vascular with delusion, depression and behavioral disturbance. Anxiety disorder unspecified. Impulse control disorder unspecified. Rest unchanged. Plan: Continue psychotropics from initial note. We will start Depakote [id number] mg 9 a.m. and 5 p.m. Check CBC, CMP, valproic acid level in 3 days. Assessment: Vital Signs/I&O: Vital Signs Date Time Temp Pulse Resp B/P (MAP) Pulse Ox O2 Delivery O2 Flow Rate FiO2 09/15/19 06:37 98.0 81 16 155/77 (103) 92 I & O 09/14/19 09/14/19 09/15/19 15:00 23:00 07:00 Intake Total 540 ml 340 ml Balance 540 ml 340 ml Current Medications: Meds: Current Medications Medications (Trade) Dose Ordered Sig/Rosa Elena Route PRN Reason Start Time Stop Time Status Last Admin Dose Admin Divalproex Sodium (Depakote Sprinkles) 125 mg 0900,1700 PO 09/14/19 17:00 09/14/19 16:53 I have reviewed the current psychotropics carefully including drug interactions. Risk benefit ratio favors no change other than as noted in my dictated progress note. Diagnosis: Problems: (1) Anxiety disorder (2) Impulse control disorder (3) Dementia, vascular, with depression (4) Dementia, vascular, with delusions (5) Dementia in Alzheimer's disease with depression (6) Dementia in Alzheimer's disease with delusions (7) Major neurocognitive disorder, due to vascular disease, with behavioral disturbance, mild (8) Weakness (9) Altered mental status JAMARCUS CONNELL MD Sep 15, 2019 07:56
--- NOTE | 2019-09-15 08:04 | RAD ---
VENOUS LOWER EXTREMITY LEFT History: Reason: LLE is more swollen than her RLE / Spl. Instructions: / History: Comparison: None. Discussion: Multiple longitudinal and transverse high resolution real-time images of the venous system of left lower extremity were obtained with color and Doppler sampling. The common femoral, superficial femoral, popliteal and proximal calf veins are all patent and demonstrate normal flow and compressibility. Normal respiratory phasicity and augmentation is present. Postoperative flow within the venous system. Impression: 1. No evidence of deep vein thrombosis. 2. Pulsatile flow within the left lower extremity venous system, can be seen with fluid overload. Electronically signed by: Diogo Drake DO (09/15/2019 8:01 AM) [facility]
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
[2019-09-15] MEDS: LOSARTAN 50 MG TABLET. PO SCH (08:20)
[2019-09-15] MEDS: DIVALPROEX 125 MG CAP.SPRINK PO SCH ×2 (08:21→18:06)
[2019-09-15] MEDS: SERTRALINE 50 MG TABLET. PO SCH (08:21)
[2019-09-15] MEDS: ATENOLOL 50 MG TABLET PO SCH (08:21)
[2019-09-15] MEDS: QUEtiapine 25 MG TABLET. PO SCH ×2 (15:22→20:00)
[2019-09-15 16:25] VITALS: BP 144/80
[2019-09-15] MEDS: MIRTAZAPINE 7.5 MG TABLET. PO SCH (20:00)
[2019-09-15] MEDS: DONEPEZIL HCL 10 MG TABLET PO SCH (20:01)
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
[2019-09-16 06:02] VITALS: BP 132/74
[2019-09-16 07:41] LABS: BASO % 0 % (0-3); EOS # 0.2 x10^3/uL (0.0-0.7); EOS % 2 % (0-3); HEMATOCRIT 37.2 % (36.0-47.0); HEMOGLOBIN 12.3 g/dL (12.0-15.5); LYMPH # 1.4 x10^3/uL (1.0-4.8); LYMPH % 14 % (24-48); MEAN CORPUSCULAR HEMOGLOBIN 32 pg (25-35); MEAN CORPUSCULAR HGB CONC 33 g/dL (31-37); MEAN CORPUSCULAR VOLUME 96 fL (79-100); MONO # 0.7 x10^3/uL (0.0-1.1); MONO % 8 % (0-9); NEUT # 7.5 x10^3uL (1.8-7.7); NEUT % 77 % (31-73); PLATELET COUNT 162 x10^3/uL (140-400); RED BLOOD COUNT 3.89 x10^6/uL (3.50-5.40); RED CELL DISTRIBUTION WIDTH 13.7 % (11.5-14.5); WHITE BLOOD COUNT 9.8 x10^3/uL (4.0-11.0)
[2019-09-16] MEDS: LOSARTAN 50 MG TABLET. PO SCH (08:23)
[2019-09-16] MEDS: SERTRALINE 50 MG TABLET. PO SCH (08:23)
[2019-09-16] MEDS: ATENOLOL 50 MG TABLET PO SCH (08:23)
[2019-09-16] MEDS: DIVALPROEX 125 MG CAP.SPRINK PO SCH ×2 (08:23→16:22)
[2019-09-16 08:32] LABS: ALBUMIN 3.3 g/dL (3.4-5.0); CALCIUM 8.7 mg/dL (8.5-10.1); CREATININE 0.9 mg/dL (0.6-1.0); GFR 59.2; POTASSIUM 3.9 mmol/L (3.5-5.1); TOTAL BILIRUBIN 0.5 mg/dL (0.2-1.0); TOTAL PROTEIN 6.7 g/dL (6.4-8.2)
[2019-09-16 15:55] VITALS: BP 152/80
[2019-09-16] MEDS: QUEtiapine 25 MG TABLET. PO SCH ×2 (16:22→20:40)
[2019-09-16] MEDS: DONEPEZIL HCL 10 MG TABLET PO SCH (20:40)
[2019-09-16] MEDS: MIRTAZAPINE 7.5 MG TABLET. PO SCH (20:40)
--- NOTE | 2019-09-16 21:55 | PDOC ---
Exam Note: Rudy Note: Please also refer to the separate dictated note~for this date of service dictated separately.~Patient seen individually. Discussed the patient with Nursing staff reviewed the chart.~Reviewed interim history and current functioning. Reviewed vital signs,~Labs/ Radiology~and current medications noted below. Continue current treatment with the changes noted in the dictated addendum note Assessment: Vital Signs/I&O: Vital Signs Date Time Temp Pulse Resp B/P (MAP) Pulse Ox O2 Delivery O2 Flow Rate FiO2 09/16/19 15:55 97.8 60 16 152/80 (104) 94 Room Air I & O 09/15/19 09/15/19 09/16/19 15:00 23:00 07:00 Intake Total 960 ml 240 ml Balance 960 ml 240 ml Labs: Laboratory Tests Test 09/16/19 07:06 White Blood Count 9.8 x10^3/uL (4.0-11.0) Red Blood Count 3.89 x10^6/uL (3.50-5.40) Hemoglobin 12.3 g/dL (12.0-15.5) Hematocrit 37.2 % (36.0-47.0) Mean Corpuscular Volume 96 fL (79-100) Mean Corpuscular Hemoglobin 32 pg (25-35) Mean Corpuscular Hemoglobin Concent 33 g/dL (31-37) Red Cell Distribution Width 13.7 % (11.5-14.5) Platelet Count 162 x10^3/uL (140-400) Neutrophils (%) (Auto) 77 % (31-73) H Lymphocytes (%) (Auto) 14 % (24-48) L Monocytes (%) (Auto) 8 % (0-9) Eosinophils (%) (Auto) 2 % (0-3) Basophils (%) (Auto) 0 % (0-3) Neutrophils # (Auto) 7.5 x10^3uL (1.8-7.7) Lymphocytes # (Auto) 1.4 x10^3/uL (1.0-4.8) Monocytes # (Auto) 0.7 x10^3/uL (0.0-1.1) Eosinophils # (Auto) 0.2 x10^3/uL (0.0-0.7) Basophils # (Auto) 0.0 x10^3/uL (0.0-0.2) Sodium Level 139 mmol/L (136-145) Potassium Level 3.9 mmol/L (3.5-5.1) Chloride Level 101 mmol/L (98-107) Carbon Dioxide Level 33 mmol/L (21-32) H Anion Gap 5 (6-14) L Blood Urea Nitrogen 24 mg/dL (7-20) H Creatinine 0.9 mg/dL (0.6-1.0) Estimated GFR (Cockcroft-Gault) 59.2 BUN/Creatinine Ratio 27 (6-20) H Glucose Level 86 mg/dL (70-99) Calcium Level 8.7 mg/dL (8.5-10.1) Total Bilirubin 0.5 mg/dL (0.2-1.0) Aspartate Amino Transferase (AST) 16 U/L (15-37) Alanine Aminotransferase (ALT) 20 U/L (14-59) Alkaline Phosphatase 54 U/L (46-116) Total Protein 6.7 g/dL (6.4-8.2) Albumin 3.3 g/dL (3.4-5.0) L Albumin/Globulin Ratio 1.0 (1.0-1.7) Current Medications: I have reviewed the current psychotropics carefully including drug interactions. Risk benefit ratio favors no change other than as noted in my dictated progress note. Diagnosis: Problems: (1) Anxiety disorder (2) Impulse control disorder (3) Dementia, vascular, with depression (4) Dementia, vascular, with delusions (5) Dementia in Alzheimer's disease with depression (6) Dementia in Alzheimer's disease with delusions (7) Major neurocognitive disorder, due to vascular disease, with behavioral disturbance, mild JAMARCUS CONNELL MD Sep 16, 2019 21:55
[2019-09-17 06:28] VITALS: BP 166/72
--- NOTE | 2019-09-17 07:36 | PDOC ---
Exam Note: Rudy Note: This note is a late entry for 09/15/2019 covers elements not covered in my initial note. Subjective: The patient was seen face to face in the evening of 09/15/2019. Nursing report was with Alicia. She slept 8-1/4 hours previous night. She is anxious, restless, constantly wanting to go and be discharged. Review of Systems: No CV, , pulmonary, eye, ENT system symptoms on review. Mental Status Exam: Oriented to herself. Insight and judgment, recent and remote memory, attention and concentration, fund of knowledge is poor consistent with her diagnoses mentioned in my initial note. Laboratory Data: Reviewed. Impression: Major neurocognitive disorder Alzheimer vascular with delusion, depression and behavioral disturbance. Anxiety disorder unspecified. Impulse control disorder unspecified. Rest unchanged. Plan: No change from initial note. Assessment: Vital Signs/I&O: Vital Signs Date Time Temp Pulse Resp B/P (MAP) Pulse Ox O2 Delivery O2 Flow Rate FiO2 09/17/19 06:28 98.2 58 16 166/72 (103) 92 09/16/19 15:55 Room Air I & O 09/16/19 09/16/19 09/17/19 15:00 23:00 07:00 Intake Total 960 ml 240 ml Balance 960 ml 240 ml Current Medications: I have reviewed the current psychotropics carefully including drug interactions. Risk benefit ratio favors no change other than as noted in my dictated progress note. Diagnosis: Problems: (1) Anxiety disorder (2) Impulse control disorder (3) Dementia, vascular, with depression (4) Dementia, vascular, with delusions (5) Dementia in Alzheimer's disease with depression (6) Dementia in Alzheimer's disease with delusions (7) Major neurocognitive disorder, due to vascular disease, with behavioral disturbance, mild JAMARCUS CONNELL MD Sep 17, 2019 07:36
--- NOTE | 2019-09-17 07:52 | PDOC ---
Exam Note: Rudy Note: This note is a late entry for 09/16/2019 covers elements not covered in my initial note. Subjective: The patient was seen face to face in the evening of 09/16/2019. Nursing report was with Deisy VILLANUEVA. She slept 5-3/4 hours previous night. Nursing report indicate she is extremely sweet and cute. She is pleasant, interactive, wanting to be discharged but easily redirected from this. Review of Systems: No CV, , pulmonary, eye, ENT system symptoms on review. Mental Status Exam: Oriented to herself. Insight and judgment, recent and remote memory, attention and concentration, fund of knowledge is poor consistent with her diagnoses mentioned in my initial note. Laboratory Data: Reviewed. Impression: Major neurocognitive disorder Alzheimer vascular with delusion, depression and behavioral disturbance. Anxiety disorder unspecified. Impulse control disorder unspecified. Rest unchanged. Plan: Continue psychotropics from initial note. We have initiated Depakote Sprinkle 125 mg twice a day and she is on Remeron 7.5 mg h.s. We will check CBC, CMP, valproic acid level on 09/17. Adjust Depakote to reach therapeutic level thereafter. Assessment: Vital Signs/I&O: Vital Signs Date Time Temp Pulse Resp B/P (MAP) Pulse Ox O2 Delivery O2 Flow Rate FiO2 09/17/19 06:28 98.2 58 16 166/72 (103) 92 09/16/19 15:55 Room Air I & O 09/16/19 09/16/19 09/17/19 15:00 23:00 07:00 Intake Total 960 ml 240 ml Balance 960 ml 240 ml Current Medications: I have reviewed the current psychotropics carefully including drug interactions. Risk benefit ratio favors no change other than as noted in my dictated progress note. Diagnosis: Problems: (1) Anxiety disorder (2) Impulse control disorder (3) Dementia, vascular, with depression (4) Dementia, vascular, with delusions (5) Dementia in Alzheimer's disease with depression (6) Dementia in Alzheimer's disease with delusions (7) Major neurocognitive disorder, due to vascular disease, with behavioral disturbance, mild JAMARCUS CONNELL MD Sep 17, 2019 07:52
[2019-09-17] MEDS: LOSARTAN 50 MG TABLET. PO SCH (08:28)
[2019-09-17] MEDS: DIVALPROEX 125 MG CAP.SPRINK PO SCH ×2 (08:29→17:00)
[2019-09-17] MEDS: ATENOLOL 50 MG TABLET PO SCH (08:29)
[2019-09-17] MEDS: SERTRALINE 50 MG TABLET. PO SCH (08:29)
[2019-09-17] MEDS: QUEtiapine 25 MG TABLET. PO SCH ×2 (14:17→20:11)
[2019-09-17 15:58] VITALS: BP 130/70
[2019-09-17] MEDS: DONEPEZIL HCL 10 MG TABLET PO SCH (20:11)
[2019-09-17] MEDS: MIRTAZAPINE 7.5 MG TABLET. PO SCH (20:11)
[2019-09-18 06:11] VITALS: BP 133/71
--- NOTE | 2019-09-18 06:45 | PDOC ---
Exam Note: Rudy Note: This note is a late entry for 09/17/2019 covers elements not covered in my initial note. Subjective: The patient was seen face to face in the evening of 09/17/2019. Nursing report was with Alicia VILLANUEVA. She slept 7 hours previous night. She remains confused, anxious, talking about wanting to get out of here. She wants to go gardening. The patient has been less calmer, less exit seeking nevertheless. Review of Systems: No CV, , pulmonary, eye, ENT system symptoms on review. Mental Status Exam: Oriented to herself. Insight and judgment, recent and remote memory, attention and concentration, fund of knowledge is poor consistent with her diagnoses mentioned in my initial note. Laboratory Data: Reviewed. Impression: Major neurocognitive disorder Alzheimer vascular with delusion, depression and behavioral disturbance. Anxiety disorder unspecified. Impulse control disorder unspecified. Rest unchanged. Plan: Continue psychotropics from initial note. Assessment: Vital Signs/I&O: Vital Signs Date Time Temp Pulse Resp B/P (MAP) Pulse Ox O2 Delivery O2 Flow Rate FiO2 09/18/19 06:11 97.9 60 14 133/71 (91) 91 09/17/19 15:58 Room Air I & O 09/17/19 09/17/19 09/18/19 14:59 22:59 06:59 Intake Total 840 ml 600 ml Balance 840 ml 600 ml Current Medications: I have reviewed the current psychotropics carefully including drug interactions. Risk benefit ratio favors no change other than as noted in my dictated progress note. Diagnosis: Problems: (1) Anxiety disorder (2) Impulse control disorder (3) Dementia, vascular, with depression (4) Dementia, vascular, with delusions (5) Dementia in Alzheimer's disease with depression (6) Dementia in Alzheimer's disease with delusions (7) Major neurocognitive disorder, due to vascular disease, with behavioral disturbance, mild JAMARCUS CONNELL MD Sep 18, 2019 06:45
[2019-09-18 07:52] LABS: ALBUMIN 3.4 g/dL (3.4-5.0); ALK PHOS 55 U/L (46-116); ALT (SGPT) 20 U/L (14-59); ANION GAP 1 (6-14); AST (SGOT) 16 U/L (15-37); BLOOD UREA NITROGEN 23 mg/dL (7-20); BUN/CREATININE RATIO 26 (6-20); CALCIUM 8.8 mg/dL (8.5-10.1); CARBON DIOXIDE 38 mmol/L (21-32); CHLORIDE 102 mmol/L (98-107); CREATININE 0.9 mg/dL (0.6-1.0); GFR 59.2; GLUCOSE 88 mg/dL (70-99); POTASSIUM 4.1 mmol/L (3.5-5.1); SODIUM 141 mmol/L (136-145); TOTAL BILIRUBIN 0.4 mg/dL (0.2-1.0); TOTAL PROTEIN 6.8 g/dL (6.4-8.2); VAL ACID 25 mcg/mL (50-100)
[2019-09-18] MEDS: DIVALPROEX 125 MG CAP.SPRINK PO SCH ×2 (08:13→18:08)
[2019-09-18] MEDS: ATENOLOL 50 MG TABLET PO SCH (08:14)
[2019-09-18] MEDS: LOSARTAN 50 MG TABLET. PO SCH (08:14)
[2019-09-18] MEDS: SERTRALINE 50 MG TABLET. PO SCH (08:14)
[2019-09-18 10:29] LABS: BASO % 1 % (0-3); EOS # 0.2 x10^3/uL (0.0-0.7); EOS % 3 % (0-3); HEMATOCRIT 38.7 % (36.0-47.0); HEMOGLOBIN 12.8 g/dL (12.0-15.5); LYMPH # 1.3 x10^3/uL (1.0-4.8); LYMPH % 22 % (24-48); MEAN CORPUSCULAR HEMOGLOBIN 32 pg (25-35); MEAN CORPUSCULAR HGB CONC 33 g/dL (31-37); MEAN CORPUSCULAR VOLUME 96 fL (79-100); MONO # 0.5 x10^3/uL (0.0-1.1); MONO % 9 % (0-9); NEUT % 66 % (31-73); PLATELET COUNT 162 x10^3/uL (140-400); RED BLOOD COUNT 4.04 x10^6/uL (3.50-5.40); RED CELL DISTRIBUTION WIDTH 13.6 % (11.5-14.5)
[2019-09-18] MEDS: QUEtiapine 25 MG TABLET. PO SCH ×2 (15:30→20:26)
[2019-09-18 16:01] VITALS: BP 157/76
[2019-09-18] MEDS: MIRTAZAPINE 7.5 MG TABLET. PO SCH (20:26)
[2019-09-18] MEDS: DONEPEZIL HCL 10 MG TABLET PO SCH (20:27)
--- NOTE | 2019-09-18 22:06 | PDOC ---
Exam Note: Rudy Note: Please also refer to the separate dictated note~for this date of service dictated separately.~Patient seen individually. Discussed the patient with Nursing staff reviewed the chart.~Reviewed interim history and current functioning. Reviewed vital signs,~Labs/ Radiology~and current medications noted below. Continue current treatment with the changes noted in the dictated addendum note Assessment: Vital Signs/I&O: Vital Signs Date Time Temp Pulse Resp B/P (MAP) Pulse Ox O2 Delivery O2 Flow Rate FiO2 09/18/19 16:01 98.8 58 16 157/76 (103) 94 09/17/19 15:58 Room Air I & O 09/17/19 09/17/19 09/18/19 15:00 23:00 07:00 Intake Total 840 ml 600 ml Balance 840 ml 600 ml Labs: Laboratory Tests Test 09/18/19 06:52 White Blood Count 6.0 x10^3/uL (4.0-11.0) Red Blood Count 4.04 x10^6/uL (3.50-5.40) Hemoglobin 12.8 g/dL (12.0-15.5) Hematocrit 38.7 % (36.0-47.0) Mean Corpuscular Volume 96 fL (79-100) Mean Corpuscular Hemoglobin 32 pg (25-35) Mean Corpuscular Hemoglobin Concent 33 g/dL (31-37) Red Cell Distribution Width 13.6 % (11.5-14.5) Platelet Count 162 x10^3/uL (140-400) Neutrophils (%) (Auto) 66 % (31-73) Lymphocytes (%) (Auto) 22 % (24-48) L Monocytes (%) (Auto) 9 % (0-9) Eosinophils (%) (Auto) 3 % (0-3) Basophils (%) (Auto) 1 % (0-3) Neutrophils # (Auto) 4.0 x10^3uL (1.8-7.7) Lymphocytes # (Auto) 1.3 x10^3/uL (1.0-4.8) Monocytes # (Auto) 0.5 x10^3/uL (0.0-1.1) Eosinophils # (Auto) 0.2 x10^3/uL (0.0-0.7) Basophils # (Auto) 0.0 x10^3/uL (0.0-0.2) Sodium Level 141 mmol/L (136-145) Potassium Level 4.1 mmol/L (3.5-5.1) Chloride Level 102 mmol/L (98-107) Carbon Dioxide Level 38 mmol/L (21-32) H Anion Gap 1 (6-14) L Blood Urea Nitrogen 23 mg/dL (7-20) H Creatinine 0.9 mg/dL (0.6-1.0) Estimated GFR (Cockcroft-Gault) 59.2 BUN/Creatinine Ratio 26 (6-20) H Glucose Level 88 mg/dL (70-99) Calcium Level 8.8 mg/dL (8.5-10.1) Total Bilirubin 0.4 mg/dL (0.2-1.0) Aspartate Amino Transferase (AST) 16 U/L (15-37) Alanine Aminotransferase (ALT) 20 U/L (14-59) Alkaline Phosphatase 55 U/L (46-116) Total Protein 6.8 g/dL (6.4-8.2) Albumin 3.4 g/dL (3.4-5.0) Albumin/Globulin Ratio 1.0 (1.0-1.7) Valproic Acid Level 25 mcg/mL (50-100) L Valproic Acid Last Dose Date 09/17/19 Valproic Acid Last Dose Time 2100 Current Medications: I have reviewed the current psychotropics carefully including drug interactions. Risk benefit ratio favors no change other than as noted in my dictated progress note. Diagnosis: Problems: (1) Anxiety disorder (2) Impulse control disorder (3) Dementia, vascular, with depression (4) Dementia, vascular, with delusions (5) Dementia in Alzheimer's disease with depression (6) Dementia in Alzheimer's disease with delusions (7) Major neurocognitive disorder, due to vascular disease, with behavioral disturbance, mild (8) Weakness (9) Altered mental status JAMARCUS CONNELL MD Sep 18, 2019 22:06
[2019-09-19 05:25] VITALS: BP 156/81
[2019-09-19] MEDS: LOSARTAN 50 MG TABLET. PO SCH (08:33)
[2019-09-19] MEDS: ATENOLOL 50 MG TABLET PO SCH (08:33)
[2019-09-19] MEDS: SERTRALINE 50 MG TABLET. PO SCH (08:33)
[2019-09-19] MEDS: DIVALPROEX 125 MG CAP.SPRINK PO SCH ×2 (08:33→15:21)
[2019-09-19] MEDS: QUEtiapine 25 MG TABLET. PO SCH ×2 (14:52→20:36)
[2019-09-19 15:58] VITALS: BP 118/57
[2019-09-19] MEDS: MIRTAZAPINE 7.5 MG TABLET. PO SCH (20:36)
[2019-09-19] MEDS: DONEPEZIL HCL 10 MG TABLET PO SCH (20:36)
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
[2019-09-20 06:02] VITALS: BP 145/77
[2019-09-20 06:30] LABS: BASO % 1 % (0-3); EOS # 0.2 x10^3/uL (0.0-0.7); EOS % 3 % (0-3); HEMATOCRIT 35.6 % (36.0-47.0); HEMOGLOBIN 11.8 g/dL (12.0-15.5); LYMPH # 1.3 x10^3/uL (1.0-4.8); LYMPH % 23 % (24-48); MEAN CORPUSCULAR HEMOGLOBIN 32 pg (25-35); MEAN CORPUSCULAR HGB CONC 33 g/dL (31-37); MEAN CORPUSCULAR VOLUME 95 fL (79-100); MONO # 0.6 x10^3/uL (0.0-1.1); MONO % 10 % (0-9); NEUT # 3.5 x10^3uL (1.8-7.7); NEUT % 64 % (31-73); PLATELET COUNT 158 x10^3/uL (140-400); RED BLOOD COUNT 3.74 x10^6/uL (3.50-5.40); RED CELL DISTRIBUTION WIDTH 13.6 % (11.5-14.5); WHITE BLOOD COUNT 5.6 x10^3/uL (4.0-11.0)
[2019-09-20 06:41] LABS: CALCIUM 8.3 mg/dL (8.5-10.1); CREATININE 0.9 mg/dL (0.6-1.0); GFR 59.2; POTASSIUM 4.1 mmol/L (3.5-5.1); TOTAL BILIRUBIN 0.3 mg/dL (0.2-1.0)
--- NOTE | 2019-09-20 07:34 | PDOC ---
Exam Note: Rudy Note: This note is a late entry for 09/18/2019 covers elements not covered in my initial note. Subjective: The patient was seen face to face in the evening of 09/18/2019. Nursing report was with Morena VILLANUEVA. She slept 7-1/2 hours previous night. She remains confused, withdrawn at times, but very pleasant, less obsessed about discharge plans. Review of Systems: No CV, , pulmonary, eye, ENT system symptoms on review. Mental Status Exam: Oriented to herself. Insight and judgment, recent and remote memory, attention and concentration, fund of knowledge is poor consistent with her diagnoses mentioned in my initial note. Laboratory Data: Reviewed. Impression: Major neurocognitive disorder Alzheimer vascular with delusion, depression and behavioral disturbance. Anxiety disorder unspecified. Impulse control disorder unspecified. Rest unchanged. Plan: Continue psychotropics from initial note. Assessment: Vital Signs/I&O: Vital Signs Date Time Temp Pulse Resp B/P (MAP) Pulse Ox O2 Delivery O2 Flow Rate FiO2 09/20/19 06:02 97.6 62 20 145/77 (99) 90 09/17/19 15:58 Room Air I & O 09/19/19 09/19/19 09/20/19 15:00 23:00 07:00 Intake Total 1080 ml 460 ml Balance 1080 ml 460 ml Labs: Laboratory Tests Test 09/20/19 05:57 White Blood Count 5.6 x10^3/uL (4.0-11.0) Red Blood Count 3.74 x10^6/uL (3.50-5.40) Hemoglobin 11.8 g/dL (12.0-15.5) L Hematocrit 35.6 % (36.0-47.0) L Mean Corpuscular Volume 95 fL (79-100) Mean Corpuscular Hemoglobin 32 pg (25-35) Mean Corpuscular Hemoglobin Concent 33 g/dL (31-37) Red Cell Distribution Width 13.6 % (11.5-14.5) Platelet Count 158 x10^3/uL (140-400) Neutrophils (%) (Auto) 64 % (31-73) Lymphocytes (%) (Auto) 23 % (24-48) L Monocytes (%) (Auto) 10 % (0-9) H Eosinophils (%) (Auto) 3 % (0-3) Basophils (%) (Auto) 1 % (0-3) Neutrophils # (Auto) 3.5 x10^3uL (1.8-7.7) Lymphocytes # (Auto) 1.3 x10^3/uL (1.0-4.8) Monocytes # (Auto) 0.6 x10^3/uL (0.0-1.1) Eosinophils # (Auto) 0.2 x10^3/uL (0.0-0.7) Basophils # (Auto) 0.0 x10^3/uL (0.0-0.2) Sodium Level 144 mmol/L (136-145) Potassium Level 4.1 mmol/L (3.5-5.1) Chloride Level 104 mmol/L (98-107) Carbon Dioxide Level 36 mmol/L (21-32) H Anion Gap 4 (6-14) L Blood Urea Nitrogen 27 mg/dL (7-20) H Creatinine 0.9 mg/dL (0.6-1.0) Estimated GFR (Cockcroft-Gault) 59.2 BUN/Creatinine Ratio 30 (6-20) H Glucose Level 87 mg/dL (70-99) Calcium Level 8.3 mg/dL (8.5-10.1) L Total Bilirubin 0.3 mg/dL (0.2-1.0) Aspartate Amino Transferase (AST) 14 U/L (15-37) L Alanine Aminotransferase (ALT) 17 U/L (14-59) Alkaline Phosphatase 49 U/L (46-116) Total Protein 6.0 g/dL (6.4-8.2) L Albumin 3.0 g/dL (3.4-5.0) L Albumin/Globulin Ratio 1.0 (1.0-1.7) Current Medications: I have reviewed the current psychotropics carefully including drug interactions. Risk benefit ratio favors no change other than as noted in my dictated progress note. Diagnosis: Problems: (1) Anxiety disorder (2) Impulse control disorder (3) Dementia, vascular, with depression (4) Dementia, vascular, with delusions (5) Dementia in Alzheimer's disease with depression (6) Dementia in Alzheimer's disease with delusions (7) Major neurocognitive disorder, due to vascular disease, with behavioral disturbance, mild JAMARCUS CONNELL MD Sep 20, 2019 07:34
--- NOTE | 2019-09-20 07:35 | PDOC ---
Exam Note: Rudy Note: This note is a late entry for 09/19/2019 covers elements not covered in my initial note. Subjective: The patient was seen face to face in the evening of 09/19/2019. Nursing report was with Morena VILLANUEVA. She slept 7-1/4 hours previous night. She has done better, less obsessed. She remains confused. Review of Systems: No CV, , pulmonary, eye, ENT system symptoms on review. Mental Status Exam: Oriented to herself. Insight and judgment, recent and remote memory, attention and concentration, fund of knowledge is poor consistent with her diagnoses mentioned in my initial note. Laboratory Data: Reviewed. Impression: Major neurocognitive disorder Alzheimer vascular with delusion, depression and behavioral disturbance. Anxiety disorder unspecified. Impulse control disorder unspecified. Rest unchanged. Plan: Continue psychotropics from initial note. COVID swab has been done and preparation for her transition back to senior care. Assessment: Vital Signs/I&O: Vital Signs Date Time Temp Pulse Resp B/P (MAP) Pulse Ox O2 Delivery O2 Flow Rate FiO2 09/20/19 06:02 97.6 62 20 145/77 (99) 90 09/17/19 15:58 Room Air I & O 09/19/19 09/19/19 09/20/19 15:00 23:00 07:00 Intake Total 1080 ml 460 ml Balance 1080 ml 460 ml Labs: Laboratory Tests Test 09/20/19 05:57 White Blood Count 5.6 x10^3/uL (4.0-11.0) Red Blood Count 3.74 x10^6/uL (3.50-5.40) Hemoglobin 11.8 g/dL (12.0-15.5) L Hematocrit 35.6 % (36.0-47.0) L Mean Corpuscular Volume 95 fL (79-100) Mean Corpuscular Hemoglobin 32 pg (25-35) Mean Corpuscular Hemoglobin Concent 33 g/dL (31-37) Red Cell Distribution Width 13.6 % (11.5-14.5) Platelet Count 158 x10^3/uL (140-400) Neutrophils (%) (Auto) 64 % (31-73) Lymphocytes (%) (Auto) 23 % (24-48) L Monocytes (%) (Auto) 10 % (0-9) H Eosinophils (%) (Auto) 3 % (0-3) Basophils (%) (Auto) 1 % (0-3) Neutrophils # (Auto) 3.5 x10^3uL (1.8-7.7) Lymphocytes # (Auto) 1.3 x10^3/uL (1.0-4.8) Monocytes # (Auto) 0.6 x10^3/uL (0.0-1.1) Eosinophils # (Auto) 0.2 x10^3/uL (0.0-0.7) Basophils # (Auto) 0.0 x10^3/uL (0.0-0.2) Sodium Level 144 mmol/L (136-145) Potassium Level 4.1 mmol/L (3.5-5.1) Chloride Level 104 mmol/L (98-107) Carbon Dioxide Level 36 mmol/L (21-32) H Anion Gap 4 (6-14) L Blood Urea Nitrogen 27 mg/dL (7-20) H Creatinine 0.9 mg/dL (0.6-1.0) Estimated GFR (Cockcroft-Gault) 59.2 BUN/Creatinine Ratio 30 (6-20) H Glucose Level 87 mg/dL (70-99) Calcium Level 8.3 mg/dL (8.5-10.1) L Total Bilirubin 0.3 mg/dL (0.2-1.0) Aspartate Amino Transferase (AST) 14 U/L (15-37) L Alanine Aminotransferase (ALT) 17 U/L (14-59) Alkaline Phosphatase 49 U/L (46-116) Total Protein 6.0 g/dL (6.4-8.2) L Albumin 3.0 g/dL (3.4-5.0) L Albumin/Globulin Ratio 1.0 (1.0-1.7) Current Medications: I have reviewed the current psychotropics carefully including drug interactions. Risk benefit ratio favors no change other than as noted in my dictated progress note. Diagnosis: Problems: (1) Anxiety disorder (2) Impulse control disorder (3) Dementia, vascular, with depression (4) Dementia, vascular, with delusions (5) Dementia in Alzheimer's disease with depression (6) Dementia in Alzheimer's disease with delusions (7) Major neurocognitive disorder, due to vascular disease, with behavioral disturbance, JAMARCUS Palumbo MD Sep 20, 2019 07:35
[2019-09-20] MEDS: SERTRALINE 50 MG TABLET. PO SCH (09:11)
[2019-09-20] MEDS: DIVALPROEX 125 MG CAP.SPRINK PO SCH ×2 (09:12→16:18)
[2019-09-20] MEDS: ATENOLOL 50 MG TABLET PO SCH (09:13)
[2019-09-20] MEDS: LOSARTAN 50 MG TABLET. PO SCH (09:13)
[2019-09-20] MEDS ORDERED: DIPHENOXYLATE/ATROPINE TABLET. PO PRN (09:30)
[2019-09-20] MEDS: QUEtiapine 25 MG TABLET. PO SCH ×2 (14:40→20:33)
[2019-09-20 15:48] VITALS: BP 145/74
[2019-09-20] MEDS: DONEPEZIL HCL 10 MG TABLET PO SCH (20:33)
[2019-09-20] MEDS: MIRTAZAPINE 7.5 MG TABLET. PO SCH (20:33)
--- NOTE | 2019-09-20 22:08 | PDOC ---
Exam Note: Rudy Note: Please also refer to the separate dictated note~for this date of service dictated separately.~Patient seen individually. Discussed the patient with Nursing staff reviewed the chart.~Reviewed interim history and current functioning. Reviewed vital signs,~Labs/ Radiology~and current medications noted below. Continue current treatment with the changes noted in the dictated addendum note Assessment: Vital Signs/I&O: Vital Signs Date Time Temp Pulse Resp B/P (MAP) Pulse Ox O2 Delivery O2 Flow Rate FiO2 09/20/19 15:48 98.3 60 16 145/74 (97) 94 09/17/19 15:58 Room Air I & O 09/19/19 09/19/19 09/20/19 15:00 23:00 07:00 Intake Total 1080 ml 460 ml Balance 1080 ml 460 ml Labs: Laboratory Tests Test 09/20/19 05:57 White Blood Count 5.6 x10^3/uL (4.0-11.0) Red Blood Count 3.74 x10^6/uL (3.50-5.40) Hemoglobin 11.8 g/dL (12.0-15.5) L Hematocrit 35.6 % (36.0-47.0) L Mean Corpuscular Volume 95 fL (79-100) Mean Corpuscular Hemoglobin 32 pg (25-35) Mean Corpuscular Hemoglobin Concent 33 g/dL (31-37) Red Cell Distribution Width 13.6 % (11.5-14.5) Platelet Count 158 x10^3/uL (140-400) Neutrophils (%) (Auto) 64 % (31-73) Lymphocytes (%) (Auto) 23 % (24-48) L Monocytes (%) (Auto) 10 % (0-9) H Eosinophils (%) (Auto) 3 % (0-3) Basophils (%) (Auto) 1 % (0-3) Neutrophils # (Auto) 3.5 x10^3uL (1.8-7.7) Lymphocytes # (Auto) 1.3 x10^3/uL (1.0-4.8) Monocytes # (Auto) 0.6 x10^3/uL (0.0-1.1) Eosinophils # (Auto) 0.2 x10^3/uL (0.0-0.7) Basophils # (Auto) 0.0 x10^3/uL (0.0-0.2) Sodium Level 144 mmol/L (136-145) Potassium Level 4.1 mmol/L (3.5-5.1) Chloride Level 104 mmol/L (98-107) Carbon Dioxide Level 36 mmol/L (21-32) H Anion Gap 4 (6-14) L Blood Urea Nitrogen 27 mg/dL (7-20) H Creatinine 0.9 mg/dL (0.6-1.0) Estimated GFR (Cockcroft-Gault) 59.2 BUN/Creatinine Ratio 30 (6-20) H Glucose Level 87 mg/dL (70-99) Calcium Level 8.3 mg/dL (8.5-10.1) L Total Bilirubin 0.3 mg/dL (0.2-1.0) Aspartate Amino Transferase (AST) 14 U/L (15-37) L Alanine Aminotransferase (ALT) 17 U/L (14-59) Alkaline Phosphatase 49 U/L (46-116) Total Protein 6.0 g/dL (6.4-8.2) L Albumin 3.0 g/dL (3.4-5.0) L Albumin/Globulin Ratio 1.0 (1.0-1.7) Current Medications: I have reviewed the current psychotropics carefully including drug interactions. Risk benefit ratio favors no change other than as noted in my dictated progress note. Diagnosis: Problems: (1) Anxiety disorder (2) Impulse control disorder (3) Dementia, vascular, with depression (4) Dementia, vascular, with delusions (5) Dementia in Alzheimer's disease with depression (6) Dementia in Alzheimer's disease with delusions (7) Major neurocognitive disorder, due to vascular disease, with behavioral disturbance, mild JAMARCUS CONNELL MD Sep 20, 2019 22:08
[2019-09-20] MEDS ORDERED: ATEN50TA PO (23:24)
[2019-09-20] MEDS ORDERED: DIVA125C2 PO (23:25)
[2019-09-20] MEDS ORDERED: MIRT15TA PO (23:26)
[2019-09-20] MEDS ORDERED: QUET25TA5 PO (23:28)
[2019-09-20] MEDS ORDERED: OLAN5TAB5 PO (23:29)
[2019-09-20] MEDS ORDERED: DIPH1TAB PO (23:30)
[2019-09-20] MEDS ORDERED: MAGN24003 PO (23:31)
[2019-09-20] MEDS ORDERED: MAG-95 PO (23:33)
[2019-09-20] MEDS ORDERED: METH57CR17 TP (23:37)
[2019-09-21 05:23] VITALS: BP 156/81
--- NOTE | 2019-09-21 07:13 | PN ---
DATE: 09/20/2019 PSYCHIATRIC PROGRESS NOTE This late entry 09/19 covers elements not covered in my initial note. SUBJECTIVE: I met with the patient evening of 09/19. Per Owen RN, the patient slept 7-1/4 hours previous night. She has had some loose stool. Dr. Galeano is addressing this. REVIEW OF SYSTEMS: Other than this, no CV, , pulmonary, eye system symptoms on review. MENTAL STATUS EXAM: Oriented to herself. Insight, judgment, recent and remote memory, attention, concentration, fund of knowledge poor, consistent with her diagnosis. She is otherwise quite cooperative with a plan to transition to nursing facility on 09/20. LABORATORY DATA: Reviewed. IMPRESSION: Unchanged from initial note. PLAN: No change from initial note. MAN Feliciano CONNELL MD DR: ASHVIN/dario JOB#: [id number] / [id number]
[2019-09-21] MEDS: DIVALPROEX 125 MG CAP.SPRINK PO SCH (08:09)
[2019-09-21] MEDS: LOSARTAN 50 MG TABLET. PO SCH (08:09)
[2019-09-21] MEDS: SERTRALINE 50 MG TABLET. PO SCH (08:09)
[2019-09-21 08:10] VITALS: BP 156/81
[2019-09-21] MEDS: ATENOLOL 50 MG TABLET PO SCH (08:10)
[2019-09-21] MEDS: QUEtiapine 25 MG TABLET. PO SCH (15:00)
--- NOTE | 2019-09-21 22:15 | PDOC ---
Exam Note: Rudy Note: Please also refer to the separate dictated note~for this date of service dictated separately.~Patient seen individually. Discussed the patient with Nursing staff reviewed the chart.~Reviewed interim history and current functioning. Reviewed vital signs,~Labs/ Radiology~and current medications noted below. Continue current treatment with the changes noted in the dictated addendum note Assessment: Vital Signs/I&O: Vital Signs Date Time Temp Pulse Resp B/P (MAP) Pulse Ox O2 Delivery O2 Flow Rate FiO2 09/21/19 08:10 60 156/81 09/21/19 05:23 98.2 16 92 Room Air I & O 09/20/19 09/20/19 09/21/19 15:00 23:00 07:00 Intake Total 960 ml 360 ml Balance 960 ml 360 ml Current Medications: I have reviewed the current psychotropics carefully including drug interactions. Risk benefit ratio favors no change other than as noted in my dictated progress note. Diagnosis: Problems: (1) Anxiety disorder (2) Impulse control disorder (3) Dementia, vascular, with depression (4) Dementia, vascular, with delusions (5) Dementia in Alzheimer's disease with depression (6) Dementia in Alzheimer's disease with delusions (7) Major neurocognitive disorder, due to vascular disease, with behavioral disturbance, mild JAMARCUS CONNELL MD Sep 21, 2019 22:15
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
== END 2019-09-21 15:00 | DRG 57 ==
LOC: ER 13:25 → GEROPSY 15:36
PROVIDERS: ADMIT Psychiatry & Neurology Psychiatry; ATTEND Psychiatry & Neurology Psychiatry
DX: G30.9 Alzheimer's disease, unspecified (principal); F01.51 Vascular dementia, unspecified severity, with behavioral disturbance; F02.81 Dementia in other diseases classified elsewhere, unspecified severity, with behavioral disturbance; F05 Delirium due to known physiological condition; I13.0 Hypertensive heart and chronic kidney disease with heart failure and stage 1 through stage 4 chronic kidney disease, or unspecified chronic kidney disease; N18.4 Chronic kidney disease, stage 4 (severe); E78.5 Hyperlipidemia, unspecified; F32.9 Major depressive disorder, single episode, unspecified; F41.9 Anxiety disorder, unspecified; F63.9 Impulse disorder, unspecified; I25.10 Atherosclerotic heart disease of native coronary artery without angina pectoris; I48.91 Unspecified atrial fibrillation; I50.9 Heart failure, unspecified; I83.93 Asymptomatic varicose veins of bilateral lower extremities; J45.909 Unspecified asthma, uncomplicated; I49.5 Sick sinus syndrome; K21.9 Gastro-esophageal reflux disease without esophagitis; Z79.899 Other long term (current) drug therapy; Z86.718 Personal history of other venous thrombosis and embolism; Z90.710 Acquired absence of both cervix and uterus; Z95.0 Presence of cardiac pacemaker; Z88.8 Allergy status to other drugs, medicaments and biological substances; Z03.818 Encounter for observation for suspected exposure to other biological agents ruled out
CPT/HCPCS: 36415; 71045; 72125; 80053; 80061; 80164; 80307; 81001; 82306; 82607; 83036; 83540; 83550; 83735; 84436; 84443; 84480; 84484; 85025; 85610; 86592; 93005; 93971; G0480; 99285-25